=== PATIENT | female | born 1955 | race Asian ===

== ENCOUNTER 2021-09-05 16:58 | Inpatient (IN) | payer MEDICAID, MEDICARE ==
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
[2021-09-06] MEDS: busPIRone 5 MG TAB PO SCH (09:47)
[2021-09-06] MEDS: allopurinoL 100 MG TAB PO SCH (09:47)
[2021-09-06] MEDS: cloNIDine 0.1 MG TAB PO SCH ×2 (09:47→21:36)
[2021-09-06] MEDS: LOSARTAN 50 MG TAB PO SCH (09:48)
[2021-09-06] MEDS: CETIRIZINE 10 MG TAB PO SCH (09:48)
[2021-09-06] MEDS ORDERED: ESCITALOPRAM 10 MG TAB PO SCH (10:00)
[2021-09-06] MEDS ORDERED: NON-FORMULARY EACH (Losartan Potassium [Losartan Potassium] 100 MG Tablet) PO SCH (10:00)
[2021-09-06 13:38] LABS: Basophils % (Auto) 0.5 % (0.0-1.8); Eosinophils # (Auto) 0.2 K/mm3 (0.0-0.4); Eosinophils % (Auto) 1.7 % (0.0-4.3); Hematocrit 35.2 % (30.3-42.9); Hemoglobin 11.6 gm/dl (10.1-14.3); Lymphocytes # (Auto) 1.8 K/mm3 (1.2-5.4); Lymphocytes % (Auto) 19.3 % (13.4-35.0); Mean Corpuscular HGB Conc 33 % (30-34); Mean Corpuscular Volume 94 fl (79-97); Monocytes # (Auto) 0.5 K/mm3 (0.0-0.8); Monocytes % (Auto) 5.2 % (0.0-7.3); Platelet Count 210 K/mm3 (140-440); Red Blood Count 3.76 M/mm3 (3.65-5.03); Red Cell Distribution Width 14.1 % (13.2-15.2)
[2021-09-06 14:07] LABS: Albumin 2.5 g/dL (3.9-5); Calcium 9.3 mg/dL (8.4-10.2); Chol/HDL Ratio 2.96 %
--- NOTE | 2021-09-06 15:37 | Consultation ---
History of Present Illness - Reason for Consult Consult date: 09/06/21 Medical management - History of Present Illness Patient is a 65-year-old female past medical history of gout, hypertension, seasonal allergies, and hyperlipidemia who presented with paranoia. The patient does not have any history of psychiatric diagnoses. Medicine was consulted for medical management of nonpsychiatric diagnoses. Past History Past Medical History: hypertension, hyperlipidemia, other (Seasonal allergies, gout) Past Surgical History: No surgical history Social history: single, lives with family, full code Family history: hypertension Medications and Allergies Allergies Allergy/AdvReac Type Severity Reaction Status Date / Time No Known Allergies Allergy Unverified 09/05/21 22:34 Home Medications Medication Instructions Recorded Confirmed Last Taken Type AtorvaSTATin [Lipitor] 20 mg PO HS 09/06/21 09/06/21 Unknown History Cetirizine HCl 10 mg PO DAILY 09/06/21 09/06/21 Unknown History Escitalopram [Lexapro] 10 mg PO DAILY 09/06/21 09/06/21 Unknown History Losartan Potassium 100 mg PO DAILY 09/06/21 09/06/21 Unknown History allopurinoL [Zyloprim] 100 mg PO DAILY 09/06/21 09/06/21 Unknown History busPIRone [Buspar] 5 mg PO DAILY 09/06/21 09/06/21 Unknown History cloNIDine [Catapres] 0.1 mg PO BID 09/06/21 09/06/21 Unknown History Active Meds: Active Medications Allopurinol (Allopurinol 100 Mg Tab) 100 mg PO DAILY [facility] Last Admin: 09/06/21 09:47 Dose: 100 mg Atorvastatin Calcium (Atorvastatin 20 Mg Tab) 20 mg PO [facility] Buspirone HCl (Buspirone 5 Mg Tab) 5 mg PO DAILY [facility] Last Admin: 09/06/21 09:47 Dose: 5 mg Cetirizine HCl (Cetirizine 10 Mg Tab) 10 mg PO DAILY [facility] Last Admin: 09/06/21 09:48 Dose: 10 mg Clonidine HCl (Clonidine 0.1 Mg Tab) 0.1 mg PO BID [facility] Last Admin: 09/06/21 09:47 Dose: 0.1 mg Escitalopram Oxalate (Escitalopram 10 Mg Tab) 10 mg PO DAILY [facility] Last Admin: 09/06/21 09:48 Dose: 10 mg Losartan Potassium (Losartan 50 Mg Tab) 100 mg PO QDAY [facility] Last Admin: 09/06/21 09:48 Dose: 100 mg Olanzapine (Olanzapine 2.5 Mg Tab) 2.5 mg PO BID [facility] Last Admin: 09/06/21 09:47 Dose: 2.5 mg Trazodone HCl (Trazodone 50 Mg Tab) 50 mg PO QHS [facility] Review of Systems All systems: negative Psychiatric: paranoia Exam - Constitutional Vitals: Temp Pulse Resp BP Pulse Ox 97.6 F 98 H 18 133/63 96 09/06/21 09:17 09/06/21 09:48 09/06/21 09:17 09/06/21 09:47 09/06/21 09:17 General appearance: Present: no acute distress, well-nourished, obese - EENT Eyes: Present: PERRL, EOM intact ENT: hearing intact, clear oral mucosa - Neck Neck: Present: supple, normal ROM - Respiratory Respiratory effort: normal Respiratory: bilateral: CTA - Cardiovascular Rhythm: regular Heart Sounds: Present: S1 & S2 - Extremities Extremities: no ischemia, pulses intact, pulses symmetrical, normal temperature, normal color Peripheral Pulses: within normal limits - Abdominal General gastrointestinal: Present: soft, non-tender, non-distended, normal bowel sounds Female genitourinary: Present: deferred - Rectal Rectal Exam: deferred - Integumentary Integumentary: Present: clear, warm, dry - Musculoskeletal Musculoskeletal: strength equal bilaterally - Psychiatric Psychiatric: appropriate mood/affect, cooperative - Neurologic Neurologic: CNII-XII intact - Allied Health Allied health notes reviewed: nursing Results - Labs CBC & Chem 7: 09/06/21 13:24 09/06/21 13:24 Labs: Abnormal lab results 09/06/21 09/06/21 09/06/21 Range/Units 06:28 11:04 13:24 Seg Neutrophils % 73.3 H (40.0-70.0) % Sodium (137-145) mmol/L Carbon Dioxide (22-30) mmol/L BUN (7-17) mg/dL Creatinine (0.6-1.2) mg/dL Glucose (65-100) mg/dL POC Glucose 106 H 140 H (70-105) mg/dL Hemoglobin A1c (4-6) % Albumin (3.9-5) g/dL HDL Cholesterol (40-59) mg/dL 09/06/21 09/06/21 Range/Units 13:24 13:24 Seg Neutrophils % (40.0-70.0) % Sodium 133 L (137-145) mmol/L Carbon Dioxide 20 L (22-30) mmol/L BUN 30 H (7-17) mg/dL Creatinine 1.5 H (0.6-1.2) mg/dL Glucose 156 H (65-100) mg/dL POC Glucose (70-105) mg/dL Hemoglobin A1c 6.7 H (4-6) % Albumin 2.5 L (3.9-5) g/dL HDL Cholesterol 60 H (40-59) mg/dL Assessment and Plan Patient is a 65-year-old female past medical history of gout, hypertension, seasonal allergies, and hyperlipidemia who presented with paranoia. The patient does not have any history of psychiatric diagnoses. Medicine was consulted for medical management of nonpsychiatric diagnoses. #Paranoia Management per primary team #Hypertension - home medications: Losartan 100 mg daily and clonidine 0.1 mg twice daily - current medications: Losartan 100 mg daily and clonidine 0.1 mg twice daily - SBP goal <160 and DBP goal <90 while inpatient - continue to monitor #Hyperlipidemia Continue home atorvastatin 20 mg daily #Gout Continue allopurinol 100 mg daily #Allergic rhinitis Continue home cetirizine 10 mg daily #Morbid obesity #Weight loss counseling #Exercise counseling - BMI 38.7 - Counseled patient on the importance of weight loss, incorporating exercise, and dietary changes (lean meats, fresh fruits and vegetables, and water intake). Patient expresses understanding. - Time: +10 min #Health care planning Pending CMP, CBC, lipid profile, hemoglobin A1c, TSH #Advanced care planning -Disease education conducted, care plan discussed, diagnoses discussed, prognosi s discussed, and patient acknowledges understanding with care plan -Time: +30 min Thank you for this interesting consult. We will continue to monitor.
[2021-09-06] MEDS: traZODone 50 MG TAB PO SCH (21:37)
--- NOTE | 2021-09-07 08:58 | Progress Note ---
Subjective Date of service: 09/07/21 Principal diagnosis: Major Depressive Disorder Subjective Comment: The patient was seen today. She is lying in bed awake. She says she is a little depressed. The patient says she was admitted because she cut her wrist. She says "I was living with evil people that were doing things to me. She says evil people across the street I was hearing them say things to me." The patient denies suicidal thoughts at present. She also denies hallucinations. REVIEW OF SYSTEMS Constitutional: Negative for weight loss ENT: Negative for stridor Respiratory: Negative for cough or hemoptysis All other systems reviewed and are negative MENTAL STATUS EXAMINATION General Appearance and Behavior: Age appropriate, good hygiene, wearing appropriate clothes, good eye contact, calm, cooperative Cooperation: Participating/engaged, but Guarded Psychomotor Behavior: Psychomotor normal Mood: confused Affect and affective range: congruent with stated mood Thought Process: Circumstantial Thought Content: paranoid Speech: normal tone and pace Suicidal Ideation: Denies Homicidal Ideation: Denies Hallucinations: Denies Delusions: None elicited Impulse Control: Limited Insight and Judgment: Limited insight and judgment Memory: Limited Attention: attentive Orientation: Alert, oriented Assessment and Plan Delusional disorder Treatment Plan Patient admitted for inpatient psychiatric evaluation, medication adjustment and close monitoring The patient's behavior, mood, sleep and appetite will be closely monitored. Patient enrolled in individual and group therapeutic sessions and encouraged to attend. Patient provided with a safe and structured environment. Patient's physical health needs will be addressed by the Hospitalist. Hospitalist Consulted Labs including CBC, CMP, Lipid profile and Hemoglobin A1C levels ordered for baseline reference Social Assessment will be completed and the Clinical Social Worker will work with patient and family to ensure a suitable and safe disposition Medication adjustment will be made as clinically indicated Increase Lexapro 20mg po daily Increase Olanzapine 7.5mg po daily Usual Wellness Evangelical/Preservation: - Start Trazodone 50 mg po QHS & 50 mg po QHS PRN between 10 PM & 2 AM for insomnia - Start Melatonin 5 mg po QHS to promote circadian rhythm The patient agreed on the treatment plan, understood the risk, benefit, alternative treatment, potential consequence of no treatment, and gave informed consent. Estimated days: 7 Post hospital care: primary care provider, psychiatric provider Case staffed with Dr. Christopher Medications and Allergies Allergies Allergy/AdvReac Type Severity Reaction Status Date / Time No Known Allergies Allergy Unverified 09/05/21 22:34 Home Medications Medication Instructions Recorded Confirmed Last Taken Type AtorvaSTATin [Lipitor] 20 mg PO HS 09/06/21 09/06/21 Unknown History Cetirizine HCl 10 mg PO DAILY 09/06/21 09/06/21 Unknown History Escitalopram [Lexapro] 10 mg PO DAILY 09/06/21 09/06/21 Unknown History Losartan Potassium 100 mg PO DAILY 09/06/21 09/06/21 Unknown History allopurinoL [Zyloprim] 100 mg PO DAILY 09/06/21 09/06/21 Unknown History busPIRone [Buspar] 5 mg PO DAILY 09/06/21 09/06/21 Unknown History cloNIDine [Catapres] 0.1 mg PO BID 09/06/21 09/06/21 Unknown History Active Meds: Active Medications Allopurinol (Allopurinol 100 Mg Tab) 100 mg PO DAILY [facility] Last Admin: 09/06/21 09:47 Dose: 100 mg Atorvastatin Calcium (Atorvastatin 20 Mg Tab) 20 mg PO [facility] Last Admin: 09/06/21 21:37 Dose: 20 mg Buspirone HCl (Buspirone 5 Mg Tab) 5 mg PO DAILY [facility] Last Admin: 09/06/21 09:47 Dose: 5 mg Cetirizine HCl (Cetirizine 10 Mg Tab) 10 mg PO DAILY [facility] Last Admin: 09/06/21 09:48 Dose: 10 mg Clonidine HCl (Clonidine 0.1 Mg Tab) 0.1 mg PO BID [facility] Last Admin: 09/06/21 21:36 Dose: 0.1 mg Escitalopram Oxalate (Escitalopram 10 Mg Tab) 10 mg PO DAILY [facility] Last Admin: 09/06/21 09:48 Dose: 10 mg Losartan Potassium (Losartan 50 Mg Tab) 100 mg PO QDAY [facility] Last Admin: 09/06/21 09:48 Dose: 100 mg Metformin HCl (Metformin 500 Mg Tab) 500 mg PO BIDDIAB [facility] Olanzapine (Olanzapine 2.5 Mg Tab) 2.5 mg PO BID [facility] Last Admin: 09/06/21 21:37 Dose: 2.5 mg Trazodone HCl (Trazodone 50 Mg Tab) 50 mg PO QHS [facility] Last Admin: 09/06/21 21:37 Dose: 50 mg Results - Results Labs/Vitals: Laboratory Last Values WBC 9.5 K/mm3 (4.5-11.0) 09/06/21 13:24 RBC 3.76 M/mm3 (3.65-5.03) 09/06/21 13:24 Hgb 11.6 gm/dl (10.1-14.3) 09/06/21 13:24 Hct 35.2 % (30.3-42.9) 09/06/21 13:24 MCV 94 fl (79-97) 09/06/21 13:24 MCH 31 pg (28-32) 09/06/21 13:24 MCHC 33 % (30-34) 09/06/21 13:24 RDW 14.1 % (13.2-15.2) 09/06/21 13:24 Plt Count 210 K/mm3 (140-440) 09/06/21 13:24 Lymph % (Auto) 19.3 % (13.4-35.0) 09/06/21 13:24 [place] % (Auto) 5.2 % (0.0-7.3) 09/06/21 13:24 Eos % (Auto) 1.7 % (0.0-4.3) 09/06/21 13:24 Baso % (Auto) 0.5 % (0.0-1.8) 09/06/21 13:24 Lymph # (Auto) 1.8 K/mm3 (1.2-5.4) 09/06/21 13:24 [place] # (Auto) 0.5 K/mm3 (0.0-0.8) 09/06/21 13:24 Eos # (Auto) 0.2 K/mm3 (0.0-0.4) 09/06/21 13:24 Baso # (Auto) 0.0 K/mm3 (0.0-0.1) 09/06/21 13:24 Seg Neutrophils % 73.3 % (40.0-70.0) H 09/06/21 13:24 Seg Neutrophils # 6.9 K/mm3 (1.8-7.7) 09/06/21 13:24 Sodium 133 mmol/L (137-145) L 09/06/21 13:24 Potassium 4.8 mmol/L (3.6-5.0) 09/06/21 13:24 Chloride 102.4 mmol/L (98-107) 09/06/21 13:24 Carbon Dioxide 20 mmol/L (22-30) L 09/06/21 13:24 Anion Gap 15 mmol/L 09/06/21 13:24 BUN 30 mg/dL (7-17) H 09/06/21 13:24 Creatinine 1.5 mg/dL (0.6-1.2) H 09/06/21 13:24 Estimated GFR 35 ml/min 09/06/21 13:24 BUN/Creatinine Ratio 20 % 09/06/21 13:24 Glucose 156 mg/dL (65-100) H 09/06/21 13:24 POC Glucose 108 mg/dL (70-105) H 09/07/21 08:19 Hemoglobin A1c 6.7 % (4-6) H 09/06/21 13:24 Calcium 9.3 mg/dL (8.4-10.2) 09/06/21 13:24 Total Bilirubin 0.60 mg/dL (0.1-1.2) 09/06/21 13:24 AST 21 units/L (5-40) 09/06/21 13:24 ALT 10 units/L (7-56) 09/06/21 13:24 Alkaline Phosphatase 49 units/L (35-129) 09/06/21 13:24 Total Protein 7.1 g/dL (6.3-8.2) 09/06/21 13:24 Albumin 2.5 g/dL (3.9-5) L 09/06/21 13:24 Albumin/Globulin Ratio 0.5 % 09/06/21 13:24 Triglycerides 118 mg/dL (2-149) 09/06/21 13:24 Cholesterol 178 mg/dL (50-199) 09/06/21 13:24 LDL Cholesterol Direct 105 mg/dL (50-130) 09/06/21 13:24 HDL Cholesterol 60 mg/dL (40-59) H 09/06/21 13:24 Cholesterol/HDL Ratio 2.96 % 09/06/21 13:24 TSH 0.454 mlU/mL (0.270-4.200) 09/06/21 13:24 Last Vital Signs Temp 98.7 F 09/06/21 19:45 Pulse 76 09/06/21 21:36 Resp 17 09/06/21 19:45 BP 120/67 04/07/22 21:36 Pulse Ox 95 09/06/21 19:45
[2021-09-07] MEDS: ESCITALOPRAM 10 MG TAB PO SCH (09:56)
[2021-09-07] MEDS: LOSARTAN 50 MG TAB PO SCH (09:56)
[2021-09-07] MEDS: metFORMIN 500 MG TAB PO SCH ×2 (09:56→17:26)
[2021-09-07] MEDS: allopurinoL 100 MG TAB PO SCH (09:57)
[2021-09-07] MEDS: cloNIDine 0.1 MG TAB PO SCH ×2 (09:57→21:25)
[2021-09-07] MEDS: CETIRIZINE 10 MG TAB PO SCH (09:57)
[2021-09-07] MEDS: busPIRone 5 MG TAB PO SCH (09:57)
--- NOTE | 2021-09-07 21:00 | Progress Note ---
Assessment and Plan Assessment and plan: Patient is a 65-year-old female past medical history of gout, hypertension, seasonal allergies, and hyperlipidemia who presented with paranoia. The patient does not have any history of psychiatric diagnoses. Medicine was consulted for medical management of nonpsychiatric diagnoses. #Major depressive disorder Management per primary team #Hypertension - home medications: Losartan 100 mg daily and clonidine 0.1 mg twice daily - current medications: Losartan 100 mg daily and clonidine 0.1 mg twice daily - SBP goal <160 and DBP goal <90 while inpatient - continue to monitor #Non-insulin dependent type II diabetes mellitus (newly diagnosed) - hemoglobin A1c: 6.7 - home regimen: None - current regimen: Metformin 500 mg twice daily - blood glucose goal 140-180 while inpatient - continue to monitor #CKD stage III Creatinine 1.5 (baseline unknown) Renally dose meds and avoid nephrotoxic drugs. Continue to monitor. Encourage p.o. intake. #Hyperlipidemia Continue home atorvastatin 20 mg daily #Gout Continue allopurinol 100 mg daily #Allergic rhinitis Continue home cetirizine 10 mg daily #Severe protein caloric malnutrition Albumin 2.6 Starting dietary supplements. Nutrition consulted; pending recs. #Morbid obesity #Weight loss counseling #Exercise counseling - BMI 38.7 - Counseled patient on the importance of weight loss, incorporating exercise, a nd dietary changes (lean meats, fresh fruits and vegetables, and water intake). Patient expresses understanding. - Time: +10 min #Advanced care planning -Disease education conducted, care plan discussed, diagnoses discussed, prognosis discussed, and patient acknowledges understanding with care plan -Time: +60 min Event: SOFYA BILL was called at approximately 3 PM due to concerns of the patient had become unresponsive. On the scene, the patient was verbally expressing "leave me alone", swinging her arms, and maintaining her airway. It was quickly determined that the patient was not coding, and the CODE BLUE was canceled. The patient was further evaluated at the bedside, and vitals were found to be unremarkable. The patient did appear overly sedated. It was recommended that sedation be reduced in order to prevent increased lethargy and possible concerns for unresponsiveness. Primary team accident. Disposition Plan: Continue medical management Total Time Spent with Patient (Minutes): 60 minutes History Interval history: No acute events overnight. Hospitalist Physical - Constitutional Vitals: Temp Pulse Resp BP Pulse Ox 97.8 F 65 18 105/47 95 09/07/21 09:18 09/07/21 14:31 09/07/21 09:18 09/07/21 14:31 09/07/21 14:31 General appearance: Present: no acute distress, well-nourished, obese, other (Noroton sedated) - EENT Eyes: Present: PERRL, EOM intact ENT: hearing intact, clear oral mucosa, edentulous - Neck Neck: Present: supple, normal ROM - Respiratory Respiratory effort: normal Respiratory: bilateral: CTA - Cardiovascular Rhythm: regular Heart Sounds: Present: S1 & S2 - Extremities Extremities: no ischemia, pulses intact, pulses symmetrical, No edema, normal temperature, normal color Peripheral Pulses: within normal limits - Abdominal General gastrointestinal: soft, non-tender, non-distended, normal bowel sounds - Integumentary Integumentary: Present: clear, warm, dry - Psychiatric Psychiatric: agitated - Neurologic Neurologic: CNII-XII intact, other (Noroton sedated and somnolent) - Allied Health Allied health notes reviewed: nursing Results - Labs CBC & Chem 7: 09/06/21 13:24 09/06/21 13:24 Labs: Laboratory Last Values WBC 9.5 K/mm3 (4.5-11.0) 09/06/21 13:24 RBC 3.76 M/mm3 (3.65-5.03) 09/06/21 13:24 Hgb 11.6 gm/dl (10.1-14.3) 09/06/21 13:24 Hct 35.2 % (30.3-42.9) 09/06/21 13:24 MCV 94 fl (79-97) 09/06/21 13:24 MCH 31 pg (28-32) 09/06/21 13:24 MCHC 33 % (30-34) 09/06/21 13:24 RDW 14.1 % (13.2-15.2) 09/06/21 13:24 Plt Count 210 K/mm3 (140-440) 09/06/21 13:24 Lymph % (Auto) 19.3 % (13.4-35.0) 09/06/21 13:24 [place] % (Auto) 5.2 % (0.0-7.3) 09/06/21 13:24 Eos % (Auto) 1.7 % (0.0-4.3) 09/06/21 13:24 Baso % (Auto) 0.5 % (0.0-1.8) 09/06/21 13:24 Lymph # (Auto) 1.8 K/mm3 (1.2-5.4) 09/06/21 13:24 [place] # (Auto) 0.5 K/mm3 (0.0-0.8) 09/06/21 13:24 Eos # (Auto) 0.2 K/mm3 (0.0-0.4) 09/06/21 13:24 Baso # (Auto) 0.0 K/mm3 (0.0-0.1) 09/06/21 13:24 Seg Neutrophils % 73.3 % (40.0-70.0) H 09/06/21 13:24 Seg Neutrophils # 6.9 K/mm3 (1.8-7.7) 09/06/21 13:24 Sodium 133 mmol/L (137-145) L 09/06/21 13:24 Potassium 4.8 mmol/L (3.6-5.0) 09/06/21 13:24 Chloride 102.4 mmol/L (98-107) 09/06/21 13:24 Carbon Dioxide 20 mmol/L (22-30) L 09/06/21 13:24 Anion Gap 15 mmol/L 09/06/21 13:24 BUN 30 mg/dL (7-17) H 09/06/21 13:24 Creatinine 1.5 mg/dL (0.6-1.2) H 09/06/21 13:24 Estimated GFR 35 ml/min 09/06/21 13:24 BUN/Creatinine Ratio 20 % 09/06/21 13:24 Glucose 156 mg/dL (65-100) H 09/06/21 13:24 POC Glucose 218 mg/dL (70-105) H 09/07/21 17:23 Hemoglobin A1c 6.7 % (4-6) H 09/06/21 13:24 Calcium 9.3 mg/dL (8.4-10.2) 09/06/21 13:24 Total Bilirubin 0.60 mg/dL (0.1-1.2) 09/06/21 13:24 AST 21 units/L (5-40) 09/06/21 13:24 ALT 10 units/L (7-56) 09/06/21 13:24 Alkaline Phosphatase 49 units/L (35-129) 09/06/21 13:24 Total Protein 7.1 g/dL (6.3-8.2) 09/06/21 13:24 Albumin 2.5 g/dL (3.9-5) L 09/06/21 13:24 Albumin/Globulin Ratio 0.5 % 09/06/21 13:24 Triglycerides 118 mg/dL (2-149) 09/06/21 13:24 Cholesterol 178 mg/dL (50-199) 09/06/21 13:24 LDL Cholesterol Direct 105 mg/dL (50-130) 09/06/21 13:24 HDL Cholesterol 60 mg/dL (40-59) H 09/06/21 13:24 Cholesterol/HDL Ratio 2.96 % 09/06/21 13:24 TSH 0.454 mlU/mL (0.270-4.200) 09/06/21 13:24 [place]/IV: Voiding Method Toilet Active Medications - Current Medications Current Medications: Generic Name Dose Route Start Last Admin Trade Name Freq PRN Reason Stop Dose Admin Allopurinol 100 mg 09/06/21 10:00 09/07/21 09:57 Allopurinol 100 Mg Tab PO 100 mg DAILY VANESSA Administration Atorvastatin Calcium 20 mg 09/06/21 22:00 09/06/21 21:37 Atorvastatin 20 Mg Tab PO 20 mg HS VANESSA Administration Buspirone HCl 5 mg 09/06/21 10:00 09/07/21 09:57 Buspirone 5 Mg Tab PO 5 mg DAILY VANESSA Administration Cetirizine HCl 10 mg 09/06/21 10:00 09/07/21 09:57 Cetirizine 10 Mg Tab PO 10 mg DAILY VANESSA Administration Clonidine HCl 0.1 mg 09/06/21 10:00 09/07/21 09:57 Clonidine 0.1 Mg Tab PO 0.1 mg BID VANESSA Administration Escitalopram Oxalate 20 mg 09/07/21 10:00 09/07/21 09:56 Escitalopram 10 Mg Tab PO 20 mg QDAY VANESSA Administration Losartan Potassium 100 mg 09/06/21 10:00 09/07/21 09:56 Losartan 50 Mg Tab PO 100 mg QDAY VANESSA Administration Metformin HCl 500 mg 09/07/21 10:00 09/07/21 17:26 Metformin 500 Mg Tab PO 500 mg BIDDIAB VANESSA Administration Olanzapine 7.5 mg 09/07/21 10:00 09/07/21 09:56 Olanzapine 7.5 Mg Tab PO 7.5 mg QDAY VANESSA Administration Trazodone HCl 50 mg 09/06/21 22:00 09/06/21 21:37 Trazodone 50 Mg Tab PO 50 mg QHS VANESSA Administration
[2021-09-07] MEDS: traZODone 50 MG TAB PO SCH (21:24)
--- NOTE | 2021-09-08 09:25 | Progress Note ---
Subjective Date of service: 09/08/21 Principal diagnosis: Major Depressive Disorder Subjective Comment: The patient was seen today. She is sitting in the dayroom. She is paranoid and delusional. She appears withdrawn. The patient says she is depressed. She then says "I killed my whole family, remember?" I tell the patient that none of that happened. She becomes upset, and says "just don't say nothing else." She refused to speak any further. REVIEW OF SYSTEMS Constitutional: Negative for weight loss ENT: Negative for stridor Respiratory: Negative for cough or hemoptysis All other systems reviewed and are negative MENTAL STATUS EXAMINATION General Appearance and Behavior: Age appropriate, good hygiene, wearing appropriate clothes, good eye contact, calm, cooperative Cooperation: Participating/engaged, but Guarded Psychomotor Behavior: Psychomotor normal Mood: confused Affect and affective range: congruent with stated mood Thought Process: Circumstantial Thought Content: paranoid Speech: normal tone and pace Suicidal Ideation: Denies Homicidal Ideation: Denies Hallucinations: Denies Delusions: None elicited Impulse Control: Limited Insight and Judgment: Limited insight and judgment Memory: Limited Attention: attentive Orientation: Alert, oriented Assessment and Plan Delusional disorder Treatment Plan Patient admitted for inpatient psychiatric evaluation, medication adjustment and close monitoring The patient's behavior, mood, sleep and appetite will be closely monitored. Patient enrolled in individual and group therapeutic sessions and encouraged to attend. Patient provided with a safe and structured environment. Patient's physical health needs will be addressed by the Hospitalist. Hospitalist Consulted Labs including CBC, CMP, Lipid profile and Hemoglobin A1C levels ordered for baseline reference Social Assessment will be completed and the School Bus Mechanic will work with patient and family to ensure a suitable and safe disposition Medication adjustment will be made as clinically indicated Increase Lexapro 20mg po daily yesterday Increase Olanzapine 10mg po daily Usual Wellness Oriental Orthodox/Preservation: - Start Trazodone 50 mg po QHS & 50 mg po QHS PRN between 10 PM & 2 AM for insomnia - Start Melatonin 5 mg po QHS to promote circadian rhythm The patient agreed on the treatment plan, understood the risk, benefit, alternative treatment, potential consequence of no treatment, and gave informed consent. Estimated days: 7 Post hospital care: primary care provider, psychiatric provider Case staffed with Dr. Christopher Medications and Allergies Allergies Allergy/AdvReac Type Severity Reaction Status Date / Time No Known Allergies Allergy Unverified 09/05/21 22:34 Home Medications Medication Instructions Recorded Confirmed Last Taken Type AtorvaSTATin [Lipitor] 20 mg PO HS 09/06/21 09/06/21 Unknown History Cetirizine HCl 10 mg PO DAILY 09/06/21 09/06/21 Unknown History Escitalopram [Lexapro] 10 mg PO DAILY 09/06/21 09/06/21 Unknown History Losartan Potassium 100 mg PO DAILY 09/06/21 09/06/21 Unknown History allopurinoL [Zyloprim] 100 mg PO DAILY 09/06/21 09/06/21 Unknown History busPIRone [Buspar] 5 mg PO DAILY 09/06/21 09/06/21 Unknown History cloNIDine [Catapres] 0.1 mg PO BID 09/06/21 09/06/21 Unknown History Active Meds: Active Medications Allopurinol (Allopurinol 100 Mg Tab) 100 mg PO DAILY [facility] Last Admin: 09/07/21 09:57 Dose: 100 mg Atorvastatin Calcium (Atorvastatin 20 Mg Tab) 20 mg PO [facility] Last Admin: 09/07/21 21:24 Dose: 20 mg Buspirone HCl (Buspirone 5 Mg Tab) 5 mg PO DAILY [facility] Last Admin: 09/07/21 09:57 Dose: 5 mg Cetirizine HCl (Cetirizine 10 Mg Tab) 10 mg PO DAILY [facility] Last Admin: 09/07/21 09:57 Dose: 10 mg Clonidine HCl (Clonidine 0.1 Mg Tab) 0.1 mg PO BID [facility] Last Admin: 09/07/21 21:25 Dose: Not Given Escitalopram Oxalate (Escitalopram 10 Mg Tab) 20 mg PO QDAY [facility] Last Admin: 09/07/21 09:56 Dose: 20 mg Losartan Potassium (Losartan 50 Mg Tab) 100 mg PO QDAY [facility] Last Admin: 09/07/21 09:56 Dose: 100 mg Metformin HCl (Metformin 500 Mg Tab) 500 mg PO BIDDIAB [facility] Last Admin: 09/07/21 17:26 Dose: 500 mg Olanzapine (Olanzapine 7.5 Mg Tab) 7.5 mg PO QDAY [facility] Last Admin: 09/07/21 09:56 Dose: 7.5 mg Trazodone HCl (Trazodone 50 Mg Tab) 50 mg PO QHS [facility] Last Admin: 09/07/21 21:24 Dose: 50 mg Results - Results Labs/Vitals: Laboratory Last Values WBC 9.5 K/mm3 (4.5-11.0) 09/06/21 13:24 RBC 3.76 M/mm3 (3.65-5.03) 09/06/21 13:24 Hgb 11.6 gm/dl (10.1-14.3) 09/06/21 13:24 Hct 35.2 % (30.3-42.9) 09/06/21 13:24 MCV 94 fl (79-97) 09/06/21 13:24 MCH 31 pg (28-32) 09/06/21 13:24 MCHC 33 % (30-34) 09/06/21 13:24 RDW 14.1 % (13.2-15.2) 09/06/21 13:24 Plt Count 210 K/mm3 (140-440) 09/06/21 13:24 Lymph % (Auto) 19.3 % (13.4-35.0) 09/06/21 13:24 [place] % (Auto) 5.2 % (0.0-7.3) 09/06/21 13:24 Eos % (Auto) 1.7 % (0.0-4.3) 09/06/21 13:24 Baso % (Auto) 0.5 % (0.0-1.8) 09/06/21 13:24 Lymph # (Auto) 1.8 K/mm3 (1.2-5.4) 09/06/21 13:24 [place] # (Auto) 0.5 K/mm3 (0.0-0.8) 09/06/21 13:24 Eos # (Auto) 0.2 K/mm3 (0.0-0.4) 09/06/21 13:24 Baso # (Auto) 0.0 K/mm3 (0.0-0.1) 09/06/21 13:24 Seg Neutrophils % 73.3 % (40.0-70.0) H 09/06/21 13:24 Seg Neutrophils # 6.9 K/mm3 (1.8-7.7) 09/06/21 13:24 Sodium 133 mmol/L (137-145) L 09/06/21 13:24 Potassium 4.8 mmol/L (3.6-5.0) 09/06/21 13:24 Chloride 102.4 mmol/L (98-107) 09/06/21 13:24 Carbon Dioxide 20 mmol/L (22-30) L 09/06/21 13:24 Anion Gap 15 mmol/L 09/06/21 13:24 BUN 30 mg/dL (7-17) H 09/06/21 13:24 Creatinine 1.5 mg/dL (0.6-1.2) H 09/06/21 13:24 Estimated GFR 35 ml/min 09/06/21 13:24 BUN/Creatinine Ratio 20 % 09/06/21 13:24 Glucose 156 mg/dL (65-100) H 09/06/21 13:24 POC Glucose 218 mg/dL (70-105) H 09/07/21 17:23 Hemoglobin A1c 6.7 % (4-6) H 09/06/21 13:24 Calcium 9.3 mg/dL (8.4-10.2) 09/06/21 13:24 Total Bilirubin 0.60 mg/dL (0.1-1.2) 09/06/21 13:24 AST 21 units/L (5-40) 09/06/21 13:24 ALT 10 units/L (7-56) 09/06/21 13:24 Alkaline Phosphatase 49 units/L (35-129) 09/06/21 13:24 Total Protein 7.1 g/dL (6.3-8.2) 09/06/21 13:24 Albumin 2.5 g/dL (3.9-5) L 09/06/21 13:24 Albumin/Globulin Ratio 0.5 % 09/06/21 13:24 Triglycerides 118 mg/dL (2-149) 09/06/21 13:24 Cholesterol 178 mg/dL (50-199) 09/06/21 13:24 LDL Cholesterol Direct 105 mg/dL (50-130) 09/06/21 13:24 HDL Cholesterol 60 mg/dL (40-59) H 09/06/21 13:24 Cholesterol/HDL Ratio 2.96 % 09/06/21 13:24 TSH 0.454 mlU/mL (0.270-4.200) 09/06/21 13:24 Last Vital Signs Temp 97.3 F L 09/07/21 19:55 Pulse 68 09/07/21 21:25 Resp 18 09/07/21 19:55 BP 118/55 09/07/21 21:25 Pulse Ox 97 09/07/21 19:55
[2021-09-08] MEDS: cloNIDine 0.1 MG TAB PO SCH ×2 (10:30→21:13)
[2021-09-08] MEDS: LOSARTAN 50 MG TAB PO SCH (10:32)
[2021-09-08] MEDS: busPIRone 5 MG TAB PO SCH (10:32)
[2021-09-08] MEDS: metFORMIN 500 MG TAB PO SCH ×2 (10:32→18:15)
[2021-09-08] MEDS: ESCITALOPRAM 10 MG TAB PO SCH (10:35)
[2021-09-08] MEDS: CETIRIZINE 10 MG TAB PO SCH (10:49)
[2021-09-08] MEDS: allopurinoL 100 MG TAB PO SCH (10:50)
[2021-09-08] MEDS: traZODone 50 MG TAB PO SCH (21:13)
[2021-09-09] MEDS ORDERED: ZIPRASIDONE MESYLATE 20 MG VIAL IM ONE (00:25)
[2021-09-09] MEDS: metFORMIN 500 MG TAB PO SCH ×2 (08:32→16:19)
[2021-09-09] MEDS: ESCITALOPRAM 10 MG TAB PO SCH (09:17)
[2021-09-09] MEDS: allopurinoL 100 MG TAB PO SCH (09:18)
[2021-09-09] MEDS: busPIRone 5 MG TAB PO SCH (09:18)
[2021-09-09] MEDS: cloNIDine 0.1 MG TAB PO SCH ×2 (09:20→21:52)
[2021-09-09] MEDS: LOSARTAN 50 MG TAB PO SCH (09:21)
[2021-09-09] MEDS: CETIRIZINE 10 MG TAB PO SCH (09:21)
[2021-09-09] MEDS: NIFEdipine XL 30 MG TAB PO SCH (09:49)
--- NOTE | 2021-09-09 10:09 | Progress Note ---
Subjective Date of service: 09/09/21 Principal diagnosis: Major Depressive Disorder Subjective Comment: The patient was seen today. She is sleeping. She is irritable at me waking her up. She tells me to "[facility]" to silence me. She verbalizes being depressed. She says "I don't want to talk about it," when asking her was she suicidal. The nurse says the patient was given Geodon prn and it just started to take affect this morning. Nurse note states the patient was agitated, combative and hallu cinating. 09/08 The patient was seen today. She is sitting in the dayroom. She is paranoid and delusional. She appears withdrawn. The patient says she is depressed. She then says "I killed my whole family, remember?" I tell the patient that none of that happened. She becomes upset, and says "just don't say nothing else." She refused to speak any further. REVIEW OF SYSTEMS Constitutional: Negative for weight loss ENT: Negative for stridor Respiratory: Negative for cough or hemoptysis All other systems reviewed and are negative MENTAL STATUS EXAMINATION General Appearance and Behavior: Age appropriate, good hygiene, wearing appropriate clothes, good eye contact, calm, cooperative Cooperation: Participating/engaged, but Guarded Psychomotor Behavior: Psychomotor normal Mood: confused Affect and affective range: congruent with stated mood Thought Process: Circumstantial Thought Content: paranoid Speech: normal tone and pace Suicidal Ideation: Denies Homicidal Ideation: Denies Hallucinations: Denies Delusions: None elicited Impulse Control: Limited Insight and Judgment: Limited insight and judgment Memory: Limited Attention: attentive Orientation: Alert, oriented Assessment and Plan Delusional disorder Treatment Plan Patient admitted for inpatient psychiatric evaluation, medication adjustment and close monitoring The patient's behavior, mood, sleep and appetite will be closely monitored. Patient enrolled in individual and group therapeutic sessions and encouraged to attend. Patient provided with a safe and structured environment. Patient's physical health needs will be addressed by the Hospitalist. Hospitalist Consulted Labs including CBC, CMP, Lipid profile and Hemoglobin A1C levels ordered for baseline reference Social Assessment will be completed and the Contact Printer Dry Film will work with patient and family to ensure a suitable and safe disposition Medication adjustment will be made as clinically indicated Continue Lexapro 20mg po daily Increase Olanzapine 15mg po daily Usual Wellness Orthodox/Preservation: - Start Trazodone 50 mg po QHS & 50 mg po QHS PRN between 10 PM & 2 AM for insomnia - Start Melatonin 5 mg po QHS to promote circadian rhythm The patient agreed on the treatment plan, understood the risk, benefit, alternative treatment, potential consequence of no treatment, and gave informed consent. Estimated days: 7 Post hospital care: primary care provider, psychiatric provider Case staffed with Dr. Christopher Medications and Allergies Allergies Allergy/AdvReac Type Severity Reaction Status Date / Time No Known Allergies Allergy Unverified 09/05/21 22:34 Home Medications Medication Instructions Recorded Confirmed Last Taken Type AtorvaSTATin [Lipitor] 20 mg PO HS 09/06/21 09/06/21 Unknown History Cetirizine HCl 10 mg PO DAILY 09/06/21 09/06/21 Unknown History Escitalopram [Lexapro] 10 mg PO DAILY 09/06/21 09/06/21 Unknown History Losartan Potassium 100 mg PO DAILY 09/06/21 09/06/21 Unknown History allopurinoL [Zyloprim] 100 mg PO DAILY 09/06/21 09/06/21 Unknown History busPIRone [Buspar] 5 mg PO DAILY 09/06/21 09/06/21 Unknown History cloNIDine [Catapres] 0.1 mg PO BID 09/06/21 09/06/21 Unknown History Active Meds: Active Medications Allopurinol (Allopurinol 100 Mg Tab) 100 mg PO DAILY [facility] Last Admin: 09/09/21 09:18 Dose: 100 mg Atorvastatin Calcium (Atorvastatin 20 Mg Tab) 20 mg PO [facility] Last Admin: 09/08/21 21:13 Dose: 20 mg Buspirone HCl (Buspirone 5 Mg Tab) 5 mg PO DAILY [facility] Last Admin: 09/09/21 09:18 Dose: 5 mg Cetirizine HCl (Cetirizine 10 Mg Tab) 10 mg PO DAILY [facility] Last Admin: 09/09/21 09:21 Dose: 10 mg Clonidine HCl (Clonidine 0.1 Mg Tab) 0.1 mg PO BID [facility] Last Admin: 09/09/21 09:20 Dose: Not Given Escitalopram Oxalate (Escitalopram 10 Mg Tab) 20 mg PO QDAY [facility] Last Admin: 09/09/21 09:17 Dose: 20 mg Losartan Potassium (Losartan 50 Mg Tab) 100 mg PO QDAY [facility] Last Admin: 09/09/21 09:21 Dose: 100 mg Metformin HCl (Metformin 500 Mg Tab) 500 mg PO BIDDIAB [facility] Last Admin: 09/09/21 08:32 Dose: 500 mg Nifedipine (Nifedipine Xl 30 Mg Tab) 30 mg PO QDAY [facility] Last Admin: 09/09/21 09:49 Dose: Not Given Olanzapine (Olanzapine 10 Mg Tab) 10 mg PO QDAY [facility] Last Admin: 09/09/21 09:21 Dose: 10 mg Trazodone HCl (Trazodone 50 Mg Tab) 50 mg PO QHS [facility] Last Admin: 09/08/21 21:13 Dose: 50 mg Results - Results Labs/Vitals: Laboratory Last Values WBC 9.5 K/mm3 (4.5-11.0) 09/06/21 13:24 RBC 3.76 M/mm3 (3.65-5.03) 09/06/21 13:24 Hgb 11.6 gm/dl (10.1-14.3) 09/06/21 13:24 Hct 35.2 % (30.3-42.9) 09/06/21 13:24 MCV 94 fl (79-97) 09/06/21 13:24 MCH 31 pg (28-32) 09/06/21 13:24 MCHC 33 % (30-34) 09/06/21 13:24 RDW 14.1 % (13.2-15.2) 09/06/21 13:24 Plt Count 210 K/mm3 (140-440) 09/06/21 13:24 Lymph % (Auto) 19.3 % (13.4-35.0) 09/06/21 13:24 [place] % (Auto) 5.2 % (0.0-7.3) 09/06/21 13:24 Eos % (Auto) 1.7 % (0.0-4.3) 09/06/21 13:24 Baso % (Auto) 0.5 % (0.0-1.8) 09/06/21 13:24 Lymph # (Auto) 1.8 K/mm3 (1.2-5.4) 09/06/21 13:24 [place] # (Auto) 0.5 K/mm3 (0.0-0.8) 09/06/21 13:24 Eos # (Auto) 0.2 K/mm3 (0.0-0.4) 09/06/21 13:24 Baso # (Auto) 0.0 K/mm3 (0.0-0.1) 09/06/21 13:24 Seg Neutrophils % 73.3 % (40.0-70.0) H 09/06/21 13:24 Seg Neutrophils # 6.9 K/mm3 (1.8-7.7) 09/06/21 13:24 Sodium 133 mmol/L (137-145) L 09/06/21 13:24 Potassium 4.8 mmol/L (3.6-5.0) 09/06/21 13:24 Chloride 102.4 mmol/L (98-107) 09/06/21 13:24 Carbon Dioxide 20 mmol/L (22-30) L 09/06/21 13:24 Anion Gap 15 mmol/L 09/06/21 13:24 BUN 30 mg/dL (7-17) H 09/06/21 13:24 Creatinine 1.5 mg/dL (0.6-1.2) H 09/06/21 13:24 Estimated GFR 35 ml/min 09/06/21 13:24 BUN/Creatinine Ratio 20 % 09/06/21 13:24 Glucose 156 mg/dL (65-100) H 09/06/21 13:24 POC Glucose 130 mg/dL (70-105) H 09/09/21 06:29 Hemoglobin A1c 6.7 % (4-6) H 09/06/21 13:24 Calcium 9.3 mg/dL (8.4-10.2) 09/06/21 13:24 Total Bilirubin 0.60 mg/dL (0.1-1.2) 09/06/21 13:24 AST 21 units/L (5-40) 09/06/21 13:24 ALT 10 units/L (7-56) 09/06/21 13:24 Alkaline Phosphatase 49 units/L (35-129) 09/06/21 13:24 Total Protein 7.1 g/dL (6.3-8.2) 09/06/21 13:24 Albumin 2.5 g/dL (3.9-5) L 09/06/21 13:24 Albumin/Globulin Ratio 0.5 % 09/06/21 13:24 Triglycerides 118 mg/dL (2-149) 09/06/21 13:24 Cholesterol 178 mg/dL (50-199) 09/06/21 13:24 LDL Cholesterol Direct 105 mg/dL (50-130) 09/06/21 13:24 HDL Cholesterol 60 mg/dL (40-59) H 09/06/21 13:24 Cholesterol/HDL Ratio 2.96 % 09/06/21 13:24 TSH 0.454 mlU/mL (0.270-4.200) 09/06/21 13:24 Last Vital Signs Temp 97.3 F L 09/08/21 19:50 Pulse 85 09/09/21 09:21 Resp 17 09/08/21 19:50 BP 134/79 09/09/21 09:21 Pulse Ox 94 09/08/21 19:50
--- NOTE | 2021-09-09 16:57 | Progress Note ---
Assessment and Plan Assessment and plan: Patient is a 65-year-old female past medical history of gout, hypertension, seasonal allergies, and hyperlipidemia who presented with paranoia. The patient does not have any history of psychiatric diagnoses. Medicine was consulted for medical management of nonpsychiatric diagnoses. #Major depressive disorder Management per primary team #Hypertension - home medications: Losartan 100 mg daily and clonidine 0.1 mg twice daily - current medications: Losartan 100 mg daily and clonidine 0.1 mg twice daily - SBP goal <160 and DBP goal <90 while inpatient - continue to monitor #Non-insulin dependent type II diabetes mellitus (newly diagnosed) - hemoglobin A1c: 6.7 - home regimen: None - current regimen: Metformin 500 mg twice daily - blood glucose goal 140-180 while inpatient - continue to monitor #CKD stage III Creatinine 1.5 (baseline unknown) Renally dose meds and avoid nephrotoxic drugs. Continue to monitor. Encourage p.o. intake. #Hyperlipidemia Continue home atorvastatin 20 mg daily #Gout Continue allopurinol 100 mg daily #Allergic rhinitis Continue home cetirizine 10 mg daily #Severe protein caloric malnutrition Albumin 2.6 Continue dietary supplements. Nutrition consulted; appreciate recs. #Morbid obesity #Weight loss counseling #Exercise counseling - BMI 38.7 - Counseled patient on the importance of weight loss, incorporating exercise, and dietary changes (lean meats, fresh fruits and vegetables, and water intake). Patient expresses understanding. - Time: +10 min #Advanced care planning -Disease education conducted, care plan discussed, diagnoses discussed, prognosis discussed, and patient acknowledges understanding with care plan -Time: +30 min Disposition Plan: Continue medical management Total Time Spent with Patient (Minutes): 30 minutes History Interval history: No acute events overnight. Hospitalist Physical - Constitutional Vitals: Temp Pulse Resp BP Pulse Ox 97.3 F L 85 17 134/79 94 09/08/21 19:50 09/09/21 09:21 09/08/21 19:50 09/09/21 09:21 09/08/21 19:50 General appearance: Present: no acute distress, well-nourished, obese - EENT Eyes: Present: PERRL, EOM intact ENT: hearing intact, clear oral mucosa - Neck Neck: Present: supple, normal ROM - Respiratory Respiratory effort: normal Respiratory: bilateral: CTA - Cardiovascular Rhythm: regular Heart Sounds: Present: S1 & S2 - Extremities Extremities: no ischemia, pulses intact, pulses symmetrical, No edema, normal temperature, normal color Peripheral Pulses: within normal limits - Abdominal General gastrointestinal: soft, non-tender, non-distended, normal bowel sounds - Integumentary Integumentary: Present: clear, warm, dry - Psychiatric Psychiatric: cooperative, agitated - Neurologic Neurologic: CNII-XII intact, moves all extremities - Allied Health Allied health notes reviewed: nursing Results - Labs CBC & Chem 7: 09/06/21 13:24 09/06/21 13:24 Labs: Laboratory Last Values WBC 9.5 K/mm3 (4.5-11.0) 09/06/21 13:24 RBC 3.76 M/mm3 (3.65-5.03) 09/06/21 13:24 Hgb 11.6 gm/dl (10.1-14.3) 09/06/21 13:24 Hct 35.2 % (30.3-42.9) 09/06/21 13:24 MCV 94 fl (79-97) 09/06/21 13:24 MCH 31 pg (28-32) 09/06/21 13:24 MCHC 33 % (30-34) 09/06/21 13:24 RDW 14.1 % (13.2-15.2) 09/06/21 13:24 Plt Count 210 K/mm3 (140-440) 09/06/21 13:24 Lymph % (Auto) 19.3 % (13.4-35.0) 09/06/21 13:24 [place] % (Auto) 5.2 % (0.0-7.3) 09/06/21 13:24 Eos % (Auto) 1.7 % (0.0-4.3) 09/06/21 13:24 Baso % (Auto) 0.5 % (0.0-1.8) 09/06/21 13:24 Lymph # (Auto) 1.8 K/mm3 (1.2-5.4) 09/06/21 13:24 [place] # (Auto) 0.5 K/mm3 (0.0-0.8) 09/06/21 13:24 Eos # (Auto) 0.2 K/mm3 (0.0-0.4) 09/06/21 13:24 Baso # (Auto) 0.0 K/mm3 (0.0-0.1) 09/06/21 13:24 Seg Neutrophils % 73.3 % (40.0-70.0) H 09/06/21 13:24 Seg Neutrophils # 6.9 K/mm3 (1.8-7.7) 09/06/21 13:24 Sodium 133 mmol/L (137-145) L 09/06/21 13:24 Potassium 4.8 mmol/L (3.6-5.0) 09/06/21 13:24 Chloride 102.4 mmol/L (98-107) 09/06/21 13:24 Carbon Dioxide 20 mmol/L (22-30) L 09/06/21 13:24 Anion Gap 15 mmol/L 09/06/21 13:24 BUN 30 mg/dL (7-17) H 09/06/21 13:24 Creatinine 1.5 mg/dL (0.6-1.2) H 09/06/21 13:24 Estimated GFR 35 ml/min 09/06/21 13:24 BUN/Creatinine Ratio 20 % 09/06/21 13:24 Glucose 156 mg/dL (65-100) H 09/06/21 13:24 POC Glucose 130 mg/dL (70-105) H 09/09/21 06:29 Hemoglobin A1c 6.7 % (4-6) H 09/06/21 13:24 Calcium 9.3 mg/dL (8.4-10.2) 09/06/21 13:24 Total Bilirubin 0.60 mg/dL (0.1-1.2) 09/06/21 13:24 AST 21 units/L (5-40) 09/06/21 13:24 ALT 10 units/L (7-56) 09/06/21 13:24 Alkaline Phosphatase 49 units/L (35-129) 09/06/21 13:24 Total Protein 7.1 g/dL (6.3-8.2) 09/06/21 13:24 Albumin 2.5 g/dL (3.9-5) L 09/06/21 13:24 Albumin/Globulin Ratio 0.5 % 09/06/21 13:24 Triglycerides 118 mg/dL (2-149) 09/06/21 13:24 Cholesterol 178 mg/dL (50-199) 09/06/21 13:24 LDL Cholesterol Direct 105 mg/dL (50-130) 09/06/21 13:24 HDL Cholesterol 60 mg/dL (40-59) H 09/06/21 13:24 Cholesterol/HDL Ratio 2.96 % 09/06/21 13:24 TSH 0.454 mlU/mL (0.270-4.200) 09/06/21 13:24 Sanabria/IV: Voiding Method Toilet Active Medications - Current Medications Current Medications: Generic Name Dose Route Start Last Admin Trade Name Merrittq PRN Reason Stop Dose Admin Allopurinol 100 mg 09/06/21 10:00 09/09/21 09:18 Allopurinol 100 Mg Tab PO 100 mg DAILY VANESSA Administration Atorvastatin Calcium 20 mg 09/06/21 22:00 09/08/21 21:13 Atorvastatin 20 Mg Tab PO 20 mg HS VANESSA Administration Buspirone HCl 5 mg 09/06/21 10:00 09/09/21 09:18 Buspirone 5 Mg Tab PO 5 mg DAILY VANESSA Administration Cetirizine HCl 10 mg 09/06/21 10:00 09/09/21 09:21 Cetirizine 10 Mg Tab PO 10 mg DAILY VANESSA Administration Clonidine HCl 0.1 mg 09/06/21 10:00 09/09/21 09:20 Clonidine 0.1 Mg Tab PO Not Given BID VANESSA Escitalopram Oxalate 20 mg 09/07/21 10:00 09/09/21 09:17 Escitalopram 10 Mg Tab PO 20 mg QDAY VANESSA Administration Losartan Potassium 100 mg 09/06/21 10:00 09/09/21 09:21 Losartan 50 Mg Tab PO 100 mg QDAY VANESSA Administration Metformin HCl 500 mg 09/07/21 10:00 09/09/21 16:19 Metformin 500 Mg Tab PO 500 mg BIDDIAB VANESSA Administration Nifedipine 30 mg 09/09/21 10:00 09/09/21 09:49 Nifedipine Xl 30 Mg Tab PO Not Given QDAY VANESSA Olanzapine 15 mg 09/10/21 10:00 Olanzapine 7.5 Mg Tab PO 09/10/21 10:01 QDAY ONE Trazodone HCl 50 mg 09/06/21 22:00 09/08/21 21:13 Trazodone 50 Mg Tab PO 50 mg QHS VANESSA Administration Nutrition/Malnutrition Assess - Dietary Evaluation Nutrition/Malnutrition Findings: Nutrition Notes Start: 09/08/21 14:14 Freq: Status: Active Protocol: Document 09/08/21 14:14 RS (Rec: 09/08/21 14:20 RS [id number]) Nutrition Notes Need for Assessment generated from: MD Order Initial or Follow up Brief Note Current Diagnosis CKD(stage I-IV),Diabetes, Hypertension,Hyperlipidemia Other Pertinent Diagnosis Major Depressive Disorder, Paranoia, Allergicv Rhinitis, CKD III, Gout Current Diet Consistent CHO Labs/Tests No recent labs since 09/06/21 Pertinent Medications reviewed Height 5 ft 10 in Weight 122.47 kg [place] Body Weight (kg) 68.18 BMI 38.7 Weight change and time frame TIFFANY wt loss and time frame Weight Status Obese Subjective/Other Information MD consult for Malnutrition for protein calorie nutrition. Upon review, serum Albumin below range at 2.6 possibly d/ t acute gout flare ups casuing flare ups and potential hx of inadquate HBV protein intake. Serum Albumin not a marker for malnutrition. Pt also is just recently dx with T2DM non insulin dependent. Pt remains on dietary supplements d/t poor PO intake during meals. Pt not an appropriate canidate for diet education at this time. Minimum of two criteria No physical signs of malnutrition Nutrition Intervention Revisit per MD consult or patient Sign Off request:
[2021-09-09] MEDS: traZODone 50 MG TAB PO SCH (21:52)
--- NOTE | 2021-09-10 10:15 | Progress Note ---
Subjective Date of service: 09/10/21 Principal diagnosis: Major Depressive Disorder Subjective Comment: The patient was seen today. She is lying in bed awake. Her thoughts are disorganized. The patient is acting bizarre. She is staring at the ceiling with her right arm stuck out. She says "my arm is still on the plane." She says "they are smoking on the plane." The patient says "my body is still on this plane. Get out of here." She says "get out of here." The patient then stops talking. 09/08 The patient was seen today. She is sitting in the dayroom. She is paranoid and delusional. She appears withdrawn. The patient says she is depressed. She then says "I killed my whole family, remember?" I tell the patient that none of that happened. She becomes upset, and says "just don't say nothing else." She refused to speak any further. REVIEW OF SYSTEMS Constitutional: Negative for weight loss ENT: Negative for stridor Respiratory: Negative for cough or hemoptysis All other systems reviewed and are negative MENTAL STATUS EXAMINATION General Appearance and Behavior: Age appropriate, good hygiene, wearing appropriate clothes, good eye contact, calm, cooperative Cooperation: Participating/engaged, but Guarded Psychomotor Behavior: Psychomotor normal Mood: confused Affect and affective range: congruent with stated mood Thought Process: Circumstantial Thought Content: paranoid Speech: normal tone and pace Suicidal Ideation: Denies Homicidal Ideation: Denies Hallucinations: Denies Delusions: None elicited Impulse Control: Limited Insight and Judgment: Limited insight and judgment Memory: Limited Attention: attentive Orientation: Alert, oriented Assessment and Plan Delusional disorder Treatment Plan Patient admitted for inpatient psychiatric evaluation, medication adjustment and close monitoring The patient's behavior, mood, sleep and appetite will be closely monitored. Patient enrolled in individual and group therapeutic sessions and encouraged to attend. Patient provided with a safe and structured environment. Patient's physical health needs will be addressed by the Hospitalist. Hospitalist Consulted Labs including CBC, CMP, Lipid profile and Hemoglobin A1C levels ordered for baseline reference Social Assessment will be completed and the Farm Mortgage Agent will work with patient and family to ensure a suitable and safe disposition Medication adjustment will be made as clinically indicated Continue Lexapro 20mg po daily Olanzapine 15mg po daily Geodon 10mg IM q4h prn agitation Start Depakote DR 125mg po BID Usual Wellness Mu-Ism/Preservation: - Start Trazodone 50 mg po QHS & 50 mg po QHS PRN between 10 PM & 2 AM for insomnia - Start Melatonin 5 mg po QHS to promote circadian rhythm The patient agreed on the treatment plan, understood the risk, benefit, alternative treatment, potential consequence of no treatment, and gave informed consent. Estimated days: 7 Post hospital care: primary care provider, psychiatric provider Case staffed with Dr. Christopher Medications and Allergies Allergies Allergy/AdvReac Type Severity Reaction Status Date / Time No Known Allergies Allergy Unverified 09/05/21 22:34 Home Medications Medication Instructions Recorded Confirmed Last Taken Type AtorvaSTATin [Lipitor] 20 mg PO HS 09/06/21 09/06/21 Unknown History Cetirizine HCl 10 mg PO DAILY 09/06/21 09/06/21 Unknown History Escitalopram [Lexapro] 10 mg PO DAILY 09/06/21 09/06/21 Unknown History Losartan Potassium 100 mg PO DAILY 09/06/21 09/06/21 Unknown History allopurinoL [Zyloprim] 100 mg PO DAILY 09/06/21 09/06/21 Unknown History busPIRone [Buspar] 5 mg PO DAILY 09/06/21 09/06/21 Unknown History cloNIDine [Catapres] 0.1 mg PO BID 09/06/21 09/06/21 Unknown History Active Meds: Active Medications Allopurinol (Allopurinol 100 Mg Tab) 100 mg PO DAILY [facility] Last Admin: 09/09/21 09:18 Dose: 100 mg Atorvastatin Calcium (Atorvastatin 20 Mg Tab) 20 mg PO [facility] Last Admin: 09/09/21 21:52 Dose: 20 mg Buspirone HCl (Buspirone 5 Mg Tab) 5 mg PO DAILY [facility] Last Admin: 09/09/21 09:18 Dose: 5 mg Cetirizine HCl (Cetirizine 10 Mg Tab) 10 mg PO DAILY [facility] Last Admin: 09/09/21 09:21 Dose: 10 mg Clonidine HCl (Clonidine 0.1 Mg Tab) 0.1 mg PO BID [facility] Last Admin: 09/09/21 21:52 Dose: 0.1 mg Escitalopram Oxalate (Escitalopram 10 Mg Tab) 20 mg PO QDAY [facility] Last Admin: 09/09/21 09:17 Dose: 20 mg Losartan Potassium (Losartan 50 Mg Tab) 100 mg PO QDAY [facility] Last Admin: 09/09/21 09:21 Dose: 100 mg Metformin HCl (Metformin 500 Mg Tab) 500 mg PO BIDDIAB [facility] Last Admin: 09/09/21 16:19 Dose: 500 mg Nifedipine (Nifedipine Xl 30 Mg Tab) 30 mg PO QDAY [facility] Last Admin: 09/09/21 09:49 Dose: Not Given Trazodone HCl (Trazodone 50 Mg Tab) 50 mg PO QHS [facility] Last Admin: 09/09/21 21:52 Dose: 50 mg Results - Results Labs/Vitals: Laboratory Last Values WBC 9.5 K/mm3 (4.5-11.0) 09/06/21 13:24 RBC 3.76 M/mm3 (3.65-5.03) 09/06/21 13:24 Hgb 11.6 gm/dl (10.1-14.3) 09/06/21 13:24 Hct 35.2 % (30.3-42.9) 09/06/21 13:24 MCV 94 fl (79-97) 09/06/21 13:24 MCH 31 pg (28-32) 09/06/21 13:24 MCHC 33 % (30-34) 09/06/21 13:24 RDW 14.1 % (13.2-15.2) 09/06/21 13:24 Plt Count 210 K/mm3 (140-440) 09/06/21 13:24 Lymph % (Auto) 19.3 % (13.4-35.0) 09/06/21 13:24 [place] % (Auto) 5.2 % (0.0-7.3) 09/06/21 13:24 Eos % (Auto) 1.7 % (0.0-4.3) 09/06/21 13:24 Baso % (Auto) 0.5 % (0.0-1.8) 09/06/21 13:24 Lymph # (Auto) 1.8 K/mm3 (1.2-5.4) 09/06/21 13:24 [place] # (Auto) 0.5 K/mm3 (0.0-0.8) 09/06/21 13:24 Eos # (Auto) 0.2 K/mm3 (0.0-0.4) 09/06/21 13:24 Baso # (Auto) 0.0 K/mm3 (0.0-0.1) 09/06/21 13:24 Seg Neutrophils % 73.3 % (40.0-70.0) H 09/06/21 13:24 Seg Neutrophils # 6.9 K/mm3 (1.8-7.7) 09/06/21 13:24 Sodium 133 mmol/L (137-145) L 09/06/21 13:24 Potassium 4.8 mmol/L (3.6-5.0) 09/06/21 13:24 Chloride 102.4 mmol/L (98-107) 09/06/21 13:24 Carbon Dioxide 20 mmol/L (22-30) L 09/06/21 13:24 Anion Gap 15 mmol/L 09/06/21 13:24 BUN 30 mg/dL (7-17) H 09/06/21 13:24 Creatinine 1.5 mg/dL (0.6-1.2) H 09/06/21 13:24 Estimated GFR 35 ml/min 09/06/21 13:24 BUN/Creatinine Ratio 20 % 09/06/21 13:24 Glucose 156 mg/dL (65-100) H 09/06/21 13:24 POC Glucose 115 mg/dL (70-105) H 09/10/21 08:17 Hemoglobin A1c 6.7 % (4-6) H 09/06/21 13:24 Calcium 9.3 mg/dL (8.4-10.2) 09/06/21 13:24 Total Bilirubin 0.60 mg/dL (0.1-1.2) 09/06/21 13:24 AST 21 units/L (5-40) 09/06/21 13:24 ALT 10 units/L (7-56) 09/06/21 13:24 Alkaline Phosphatase 49 units/L (35-129) 09/06/21 13:24 Total Protein 7.1 g/dL (6.3-8.2) 09/06/21 13:24 Albumin 2.5 g/dL (3.9-5) L 09/06/21 13:24 Albumin/Globulin Ratio 0.5 % 09/06/21 13:24 Triglycerides 118 mg/dL (2-149) 09/06/21 13:24 Cholesterol 178 mg/dL (50-199) 09/06/21 13:24 LDL Cholesterol Direct 105 mg/dL (50-130) 09/06/21 13:24 HDL Cholesterol 60 mg/dL (40-59) H 09/06/21 13:24 Cholesterol/HDL Ratio 2.96 % 09/06/21 13:24 TSH 0.454 mlU/mL (0.270-4.200) 09/06/21 13:24 Last Vital Signs Temp 97.4 F L 09/10/21 09:25 Pulse 99 H 09/10/21 09:25 Resp 20 09/10/21 09:25 BP 129/71 09/10/21 09:25 Pulse Ox 98 09/10/21 09:25
[2021-09-10] MEDS ORDERED: ZIPRASIDONE MESYLATE 20 MG VIAL IM PRN (11:00)
[2021-09-10] MEDS: metFORMIN 500 MG TAB PO SCH ×2 (11:37→17:47)
[2021-09-10] MEDS: LOSARTAN 50 MG TAB PO SCH (11:38)
[2021-09-10] MEDS: cloNIDine 0.1 MG TAB PO SCH ×2 (11:38→22:30)
[2021-09-10] MEDS: CETIRIZINE 10 MG TAB PO SCH (11:38)
[2021-09-10] MEDS: allopurinoL 100 MG TAB PO SCH (11:38)
[2021-09-10] MEDS: ESCITALOPRAM 10 MG TAB PO SCH (11:38)
[2021-09-10] MEDS: busPIRone 5 MG TAB PO SCH (11:38)
[2021-09-10] MEDS: NIFEdipine XL 30 MG TAB PO SCH (11:38)
[2021-09-10] MEDS: DIVALPROEX DR 125 MG TAB PO SCH ×2 (12:25→22:36)
--- NOTE | 2021-09-10 12:56 | Progress Note ---
Assessment and Plan Assessment and plan: Patient is a 65-year-old female past medical history of gout, hypertension, seasonal allergies, and hyperlipidemia who presented with paranoia. The patient does not have any history of psychiatric diagnoses. Medicine was consulted for medical management of nonpsychiatric diagnoses. #Major depressive disorder Management per primary team #Hypertension - home medications: Losartan 100 mg daily and clonidine 0.1 mg twice daily - current medications: Losartan 100 mg daily and clonidine 0.1 mg twice daily - SBP goal <160 and DBP goal <90 while inpatient - continue to monitor #Non-insulin dependent type II diabetes mellitus (newly diagnosed) - hemoglobin A1c: 6.7 - home regimen: None - current regimen: Metformin 500 mg twice daily - blood glucose goal 140-180 while inpatient - continue to monitor #CKD stage III Creatinine 1.5 (baseline unknown) Renally dose meds and avoid nephrotoxic drugs. Continue to monitor. Encourage p.o. intake. #Hyperlipidemia Continue home atorvastatin 20 mg daily #Gout Continue allopurinol 100 mg daily #Allergic rhinitis Continue home cetirizine 10 mg daily #Severe protein caloric malnutrition Albumin 2.6 Continue dietary supplements. Nutrition consulted; appreciate recs. #Morbid obesity #Weight loss counseling #Exercise counseling - BMI 38.7 - Counseled patient on the importance of weight loss, incorporating exercise, and dietary changes (lean meats, fresh fruits and vegetables, and water intake). Patient expresses understanding. - Time: +10 min #Advanced care planning -Disease education conducted, care plan discussed, diagnoses discussed, prognosis discussed, and patient acknowledges understanding with care plan -Time: +30 min Disposition Plan: Continue medical management Total Time Spent with Patient (Minutes): 30 minutes History Interval history: No acute events overnight. Hospitalist Physical - Constitutional Vitals: Temp Pulse Resp BP Pulse Ox 97.4 F L 99 H 20 129/71 98 09/10/21 09:25 09/10/21 09:25 09/10/21 09:25 09/10/21 09:25 09/10/21 09:25 General appearance: Present: no acute distress, well-nourished, obese - EENT Eyes: Present: PERRL, EOM intact ENT: hearing intact, clear oral mucosa - Neck Neck: Present: supple, normal ROM - Respiratory Respiratory effort: normal Respiratory: bilateral: CTA - Cardiovascular Rhythm: regular Heart Sounds: Present: S1 & S2 - Extremities Extremities: no ischemia, pulses intact, pulses symmetrical, No edema, normal temperature, normal color Peripheral Pulses: within normal limits - Abdominal General gastrointestinal: soft, non-tender, non-distended, normal bowel sounds - Integumentary Integumentary: Present: clear, warm, dry - Psychiatric Psychiatric: appropriate mood/affect - Neurologic Neurologic: CNII-XII intact, moves all extremities - Allied Health Allied health notes reviewed: nursing Results - Labs CBC & Chem 7: 09/06/21 13:24 09/06/21 13:24 Labs: Laboratory Last Values WBC 9.5 K/mm3 (4.5-11.0) 09/06/21 13:24 RBC 3.76 M/mm3 (3.65-5.03) 09/06/21 13:24 Hgb 11.6 gm/dl (10.1-14.3) 09/06/21 13:24 Hct 35.2 % (30.3-42.9) 09/06/21 13:24 MCV 94 fl (79-97) 09/06/21 13:24 MCH 31 pg (28-32) 09/06/21 13:24 MCHC 33 % (30-34) 09/06/21 13:24 RDW 14.1 % (13.2-15.2) 09/06/21 13:24 Plt Count 210 K/mm3 (140-440) 09/06/21 13:24 Lymph % (Auto) 19.3 % (13.4-35.0) 09/06/21 13:24 [place] % (Auto) 5.2 % (0.0-7.3) 09/06/21 13:24 Eos % (Auto) 1.7 % (0.0-4.3) 09/06/21 13:24 Baso % (Auto) 0.5 % (0.0-1.8) 09/06/21 13:24 Lymph # (Auto) 1.8 K/mm3 (1.2-5.4) 09/06/21 13:24 [place] # (Auto) 0.5 K/mm3 (0.0-0.8) 09/06/21 13:24 Eos # (Auto) 0.2 K/mm3 (0.0-0.4) 09/06/21 13:24 Baso # (Auto) 0.0 K/mm3 (0.0-0.1) 09/06/21 13:24 Seg Neutrophils % 73.3 % (40.0-70.0) H 09/06/21 13:24 Seg Neutrophils # 6.9 K/mm3 (1.8-7.7) 09/06/21 13:24 Sodium 133 mmol/L (137-145) L 09/06/21 13:24 Potassium 4.8 mmol/L (3.6-5.0) 09/06/21 13:24 Chloride 102.4 mmol/L (98-107) 09/06/21 13:24 Carbon Dioxide 20 mmol/L (22-30) L 09/06/21 13:24 Anion Gap 15 mmol/L 09/06/21 13:24 BUN 30 mg/dL (7-17) H 09/06/21 13:24 Creatinine 1.5 mg/dL (0.6-1.2) H 09/06/21 13:24 Estimated GFR 35 ml/min 09/06/21 13:24 BUN/Creatinine Ratio 20 % 09/06/21 13:24 Glucose 156 mg/dL (65-100) H 09/06/21 13:24 POC Glucose 115 mg/dL (70-105) H 09/10/21 08:17 Hemoglobin A1c 6.7 % (4-6) H 09/06/21 13:24 Calcium 9.3 mg/dL (8.4-10.2) 09/06/21 13:24 Total Bilirubin 0.60 mg/dL (0.1-1.2) 09/06/21 13:24 AST 21 units/L (5-40) 09/06/21 13:24 ALT 10 units/L (7-56) 09/06/21 13:24 Alkaline Phosphatase 49 units/L (35-129) 09/06/21 13:24 Total Protein 7.1 g/dL (6.3-8.2) 09/06/21 13:24 Albumin 2.5 g/dL (3.9-5) L 09/06/21 13:24 Albumin/Globulin Ratio 0.5 % 09/06/21 13:24 Triglycerides 118 mg/dL (2-149) 09/06/21 13:24 Cholesterol 178 mg/dL (50-199) 09/06/21 13:24 LDL Cholesterol Direct 105 mg/dL (50-130) 09/06/21 13:24 HDL Cholesterol 60 mg/dL (40-59) H 09/06/21 13:24 Cholesterol/HDL Ratio 2.96 % 09/06/21 13:24 TSH 0.454 mlU/mL (0.270-4.200) 09/06/21 13:24 Sanabria/IV: Voiding Method Toilet Active Medications - Current Medications Current Medications: Generic Name Dose Route Start Last Admin Trade Name Freq PRN Reason Stop Dose Admin Allopurinol 100 mg 09/06/21 10:00 09/10/21 11:38 Allopurinol 100 Mg Tab PO Not Given DAILY [facility] Atorvastatin Calcium 20 mg 09/06/21 22:00 09/09/21 21:52 Atorvastatin 20 Mg Tab PO 20 mg HS [facility] Administration Buspirone HCl 5 mg 09/06/21 10:00 09/10/21 11:38 Buspirone 5 Mg Tab PO Not Given DAILY [facility] Cetirizine HCl 10 mg 09/06/21 10:00 09/10/21 11:38 Cetirizine 10 Mg Tab PO Not Given DAILY [facility] Clonidine HCl 0.1 mg 09/06/21 10:00 09/10/21 11:38 Clonidine 0.1 Mg Tab PO Not Given BID [facility] Divalproex Sodium 125 mg 09/10/21 11:00 09/10/21 12:[address] 125 Mg Tab PO Not Given BID [facility] Escitalopram Oxalate 20 mg 09/07/21 10:00 09/10/21 11:38 Escitalopram 10 Mg Tab PO Not Given QDAY [facility] Losartan Potassium 100 mg 09/06/21 10:00 09/10/21 11:38 Losartan 50 Mg Tab PO Not Given QDAY [facility] Metformin HCl 500 mg 09/07/21 10:00 09/10/21 11:37 Metformin 500 Mg Tab PO Not Given BIDDIAB [facility] Nifedipine 30 mg 09/09/21 10:00 09/10/21 11:38 Nifedipine Xl 30 Mg Tab PO Not Given QDAY [facility] Trazodone HCl 50 mg 09/06/21 22:00 09/09/21 21:52 Trazodone 50 Mg Tab PO 50 mg QHS [facility] Administration Ziprasidone 10 mg 09/10/21 11:00 Ziprasidone Mesylate 20 Mg Vial IM Q4H PRN Agitation Nutrition/Malnutrition Assess - Dietary Evaluation Nutrition/Malnutrition Findings: Nutrition Notes Start: 09/08/21 14:14 Freq: Status: Active Protocol: Document 09/08/21 14:14 RS (Rec: 09/08/21 14:20 RS [id number]) Nutrition Notes Need for Assessment generated from: MD Order Initial or Follow up Brief Note Current Diagnosis CKD(stage I-IV),Diabetes, Hypertension,Hyperlipidemia Other Pertinent Diagnosis Major Depressive Disorder, Paranoia, Allergicv Rhinitis, CKD III, Gout Current Diet Consistent CHO Labs/Tests No recent labs since 09/06/21 Pertinent Medications reviewed Height 5 ft 10 in Weight 122.47 kg [place] Body Weight (kg) 68.18 BMI 38.7 Weight change and time frame TIFFANY wt loss and time frame Weight Status Obese Subjective/Other Information MD consult for Malnutrition for protein calorie nutrition. Upon review, serum Albumin below range at 2.6 possibly d/ t acute gout flare ups casuing flare ups and potential hx of inadquate HBV protein intake. Serum Albumin not a marker for malnutrition. Pt also is just recently dx with T2DM non insulin dependent. Pt remains on dietary supplements d/t poor PO intake during meals. Pt not an appropriate canidate for diet education at this time. Minimum of two criteria No physical signs of malnutrition Nutrition Intervention Revisit per MD consult or patient Sign Off request:
[2021-09-10] MEDS: traZODone 50 MG TAB PO SCH (22:30)
--- NOTE | 2021-09-11 09:44 | Progress Note ---
Subjective Date of service: 09/11/21 Principal diagnosis: Major Depressive Disorder Subjective Comment: The patient was seen today. Staff and hospitalist with the patient. The patient's BP was initially low, but has normalized now. The patient was taken to the day room, she is shaking and asking to go back to bed. She is irritable and acting bizarre. I touch her and she shakes vigorously and tells me not to touch her. She says "I don't feel good." I ask the patient why she didn't feel good, she says "put me in my room. That chair is nasty." She refused to answer if she was having hallucinations or feeling suicidal. She says "Shhhhhh, I want to go to my room." 09/10 The patient was seen today. She is lying in bed awake. Her thoughts are disorganized. The patient is acting bizarre. She is staring at the ceiling with her right arm stuck out. She says "my arm is still on the plane." She says "they are smoking on the plane." The patient says "my body is still on this plane. Get out of here." She says "get out of here." The patient then stops talking. 09/09 The patient was seen today. She is sleeping. She is irritable at me waking her up. She tells me to "shhhhhh" to silence me. She verbalizes being depressed. She says "I don't want to talk about it," when asking her was she suicidal. The nurse says the patient was given Geodon prn and it just started to take affect this morning. Nurse note states the patient was agitated, combative and hallucinating. 09/08 The patient was seen today. She is sitting in the dayroom. She is paranoid and delusional. She appears withdrawn. The patient says she is depressed. She then says "I killed my whole family, remember?" I tell the patient that none of that happened. She becomes upset, and says "just don't say nothing else." She refused to speak any further. REVIEW OF SYSTEMS Constitutional: Negative for weight loss ENT: Negative for stridor Respiratory: Negative for cough or hemoptysis All other systems reviewed and are negative MENTAL STATUS EXAMINATION General Appearance and Behavior: Age appropriate, good hygiene, wearing appropriate clothes, good eye contact, calm, cooperative Cooperation: Participating/engaged, but Guarded Psychomotor Behavior: Psychomotor normal Mood: confused Affect and affective range: congruent with stated mood Thought Process: Circumstantial Thought Content: paranoid Speech: normal tone and pace Suicidal Ideation: Denies Homicidal Ideation: Denies Hallucinations: Denies Delusions: None elicited Impulse Control: Limited Insight and Judgment: Limited insight and judgment Memory: Limited Attention: attentive Orientation: Alert, oriented Assessment and Plan Delusional disorder Treatment Plan Patient admitted for inpatient psychiatric evaluation, medication adjustment and close monitoring The patient's behavior, mood, sleep and appetite will be closely monitored. Patient enrolled in individual and group therapeutic sessions and encouraged to attend. Patient provided with a safe and structured environment. Patient's physical health needs will be addressed by the Hospitalist. Hospitali st Consulted Labs including CBC, CMP, Lipid profile and Hemoglobin A1C levels ordered for baseline reference Social Assessment will be completed and the Nutritional Services Host will work with patient and family to ensure a suitable and safe disposition Medication adjustment will be made as clinically indicated Usual Wellness Alevism/Preservation: - Start Trazodone 50 mg po QHS & 50 mg po QHS PRN between 10 PM & 2 AM for insomnia - Start Melatonin 5 mg po QHS to promote circadian rhythm The patient agreed on the treatment plan, understood the risk, benefit, alternative treatment, potential consequence of no treatment, and gave informed consent. Estimated days: 7 Post hospital care: primary care provider, psychiatric provider Case staffed with Dr. Christopher Medications and Allergies Allergies Allergy/AdvReac Type Severity Reaction Status Date / Time No Known Allergies Allergy Unverified 09/05/21 22:34 Home Medications Medication Instructions Recorded Confirmed Last Taken Type AtorvaSTATin [Lipitor] 20 mg PO HS 09/06/21 09/06/21 Unknown History Cetirizine HCl 10 mg PO DAILY 09/06/21 09/06/21 Unknown History Escitalopram [Lexapro] 10 mg PO DAILY 09/06/21 09/06/21 Unknown History Losartan Potassium 100 mg PO DAILY 09/06/21 09/06/21 Unknown History allopurinoL [Zyloprim] 100 mg PO DAILY 09/06/21 09/06/21 Unknown History busPIRone [Buspar] 5 mg PO DAILY 09/06/21 09/06/21 Unknown History cloNIDine [Catapres] 0.1 mg PO BID 09/06/21 09/06/21 Unknown History Active Meds: Active Medications Allopurinol (Allopurinol 100 Mg Tab) 100 mg PO DAILY [facility] Last Admin: 09/10/21 11:38 Dose: Not Given Atorvastatin Calcium (Atorvastatin 20 Mg Tab) 20 mg PO HS [facility] Last Admin: 09/10/21 22:30 Dose: Not Given Buspirone HCl (Buspirone 5 Mg Tab) 5 mg PO DAILY [facility] Last Admin: 09/10/21 11:38 Dose: Not Given Cetirizine HCl (Cetirizine 10 Mg Tab) 10 mg PO DAILY [facility] Last Admin: 09/10/21 11:38 Dose: Not Given Divalproex Sodium (Divalproex Dr 125 Mg Tab) 125 mg PO BID [facility] Last Admin: 09/10/21 22:36 Dose: Not Given Escitalopram Oxalate (Escitalopram 10 Mg Tab) 20 mg PO QDAY [facility] Last Admin: 09/10/21 11:38 Dose: Not Given Metformin HCl (Metformin 500 Mg Tab) 500 mg PO BIDDIAB [facility] Last Admin: 09/10/21 17:47 Dose: Not Given Nifedipine (Nifedipine Xl 30 Mg Tab) 30 mg PO QDAY [facility] Last Admin: 09/10/21 11:38 Dose: Not Given Trazodone HCl (Trazodone 50 Mg Tab) 50 mg PO QHS [facility] Last Admin: 09/10/21 22:30 Dose: Not Given Ziprasidone (Ziprasidone Mesylate 20 Mg Vial) 10 mg IM Q4H PRN PRN Reason: Agitation Results - Results Labs/Vitals: Laboratory Last Values WBC 9.5 K/mm3 (4.5-11.0) 09/06/21 13:24 RBC 3.76 M/mm3 (3.65-5.03) 09/06/21 13:24 Hgb 11.6 gm/dl (10.1-14.3) 09/06/21 13:24 Hct 35.2 % (30.3-42.9) 09/06/21 13:24 MCV 94 fl (79-97) 09/06/21 13:24 MCH 31 pg (28-32) 09/06/21 13:24 MCHC 33 % (30-34) 09/06/21 13:24 RDW 14.1 % (13.2-15.2) 09/06/21 13:24 Plt Count 210 K/mm3 (140-440) 09/06/21 13:24 Lymph % (Auto) 19.3 % (13.4-35.0) 09/06/21 13:24 [place] % (Auto) 5.2 % (0.0-7.3) 09/06/21 13:24 Eos % (Auto) 1.7 % (0.0-4.3) 09/06/21 13:24 Baso % (Auto) 0.5 % (0.0-1.8) 09/06/21 13:24 Lymph # (Auto) 1.8 K/mm3 (1.2-5.4) 09/06/21 13:24 [place] # (Auto) 0.5 K/mm3 (0.0-0.8) 09/06/21 13:24 Eos # (Auto) 0.2 K/mm3 (0.0-0.4) 09/06/21 13:24 Baso # (Auto) 0.0 K/mm3 (0.0-0.1) 09/06/21 13:24 Seg Neutrophils % 73.3 % (40.0-70.0) H 09/06/21 13:24 Seg Neutrophils # 6.9 K/mm3 (1.8-7.7) 09/06/21 13:24 Sodium 133 mmol/L (137-145) L 09/06/21 13:24 Potassium 4.8 mmol/L (3.6-5.0) 09/06/21 13:24 Chloride 102.4 mmol/L (98-107) 09/06/21 13:24 Carbon Dioxide 20 mmol/L (22-30) L 09/06/21 13:24 Anion Gap 15 mmol/L 09/06/21 13:24 BUN 30 mg/dL (7-17) H 09/06/21 13:24 Creatinine 1.5 mg/dL (0.6-1.2) H 09/06/21 13:24 Estimated GFR 35 ml/min 09/06/21 13:24 BUN/Creatinine Ratio 20 % 09/06/21 13:24 Glucose 156 mg/dL (65-100) H 09/06/21 13:24 POC Glucose 115 mg/dL (70-105) H 09/10/21 08:17 Hemoglobin A1c 6.7 % (4-6) H 09/06/21 13:24 Calcium 9.3 mg/dL (8.4-10.2) 09/06/21 13:24 Total Bilirubin 0.60 mg/dL (0.1-1.2) 09/06/21 13:24 AST 21 units/L (5-40) 09/06/21 13:24 ALT 10 units/L (7-56) 09/06/21 13:24 Alkaline Phosphatase 49 units/L (35-129) 09/06/21 13:24 Total Protein 7.1 g/dL (6.3-8.2) 09/06/21 13:24 Albumin 2.5 g/dL (3.9-5) L 09/06/21 13:24 Albumin/Globulin Ratio 0.5 % 09/06/21 13:24 Triglycerides 118 mg/dL (2-149) 09/06/21 13:24 Cholesterol 178 mg/dL (50-199) 09/06/21 13:24 LDL Cholesterol Direct 105 mg/dL (50-130) 09/06/21 13:24 HDL Cholesterol 60 mg/dL (40-59) H 09/06/21 13:24 Cholesterol/HDL Ratio 2.96 % 09/06/21 13:24 TSH 0.454 mlU/mL (0.270-4.200) 09/06/21 13:24 Last Vital Signs Temp 97.4 F L 09/10/21 09:25 Pulse 107 H 09/11/21 09:18 Resp 20 09/10/21 09:25 BP 112/58 09/11/21 09:17 Pulse Ox 90 09/11/21 09:18
[2021-09-11] MEDS: CETIRIZINE 10 MG TAB PO SCH (10:13)
[2021-09-11] MEDS: metFORMIN 500 MG TAB PO SCH ×2 (10:13→16:47)
[2021-09-11] MEDS: NIFEdipine XL 30 MG TAB PO SCH (10:14)
[2021-09-11] MEDS: allopurinoL 100 MG TAB PO SCH (16:47)
[2021-09-11] MEDS: DIVALPROEX DR 125 MG TAB PO SCH ×2 (16:48→21:20)
[2021-09-11] MEDS: ESCITALOPRAM 10 MG TAB PO SCH (16:49)
[2021-09-11] MEDS: busPIRone 5 MG TAB PO SCH (16:49)
--- NOTE | 2021-09-11 20:46 | Progress Note ---
Assessment and Plan - Patient Problems (1) Vascular dementia with behavioral disturbance Current Visit: Yes Status: Acute Plan to address problem: Verbal prompting, verbal redirection, benzodiazepine therapy as clinically indicated. (2) Cerebral atherosclerosis Current Visit: Yes Status: Acute Plan to address problem: Risk factor reduction, antiplatelet therapy as clinically indicated. (3) Obesity hypoventilation syndrome Current Visit: Yes Status: Acute Plan to address problem: Balanced diet, increase physical activity discharge, outpatient pulmonary fo llow-up for sleep study. (4) Acute psychosis Current Visit: Yes Status: Acute Plan to address problem: Supportive care, continue medical management (5) Hypertension Current Visit: Yes Status: Acute Qualifiers: Hypertension type: primary hypertension Qualified Code(s): I10 - Essential (primary) hypertension Plan to address problem: Monitor blood pressure every shift, continue medical management (6) Hyperlipidemia Current Visit: Yes Status: Acute Qualifiers: Hyperlipidemia type: mixed hyperlipidemia Qualified Code(s): E78.2 - Mixed hyperlipidemia Plan to address problem: Low-cholesterol diet, supportive care, (7) Seasonal allergies Current Visit: Yes Status: Acute Plan to address problem: Continue oral antihistamine therapy as clinically indicated. (8) Advance care planning Current Visit: Yes Status: Acute Plan to address problem: Disease education conducted, care plan discussed, diagnoses discussed, prognosis discussed, patient is full code. Patient acknowledges understanding and agreeme nt with care plan, +30 minutes. History Interval history: 65 YO Female with Vascular Dementia with Behavioral Disturbance, Cerebral Atherosclerosis, HTN, HLD, Gout, Seasonal Allergies, Acute Psychosis admitted to [facility] for psychiatric stabilization. Consult placed with Dr. Pulido for medical management. Patient seen and evaluated in the recreation room. Patient resting comfortably. No reported nursing events. Patient denies pain. Patient is at baseline level of cognition and function. Hospitalist Physical - Constitutional Vitals: Temp Pulse Resp BP Pulse Ox 97.4 F L 107 H 20 112/58 90 09/10/21 09:25 09/11/21 09:18 09/10/21 09:25 09/11/21 09:17 09/11/21 09:18 General appearance: Present: no acute distress, well-nourished, obese - EENT Eyes: Present: PERRL ENT: hearing decreased - Neck Neck: Present: supple - Respiratory Respiratory effort: labored Respiratory: bilateral: CTA - Cardiovascular Rhythm: regular Heart Sounds: Present: S1 & S2 - Extremities Extremities: no ischemia Peripheral Pulses: within normal limits - Abdominal General gastrointestinal: soft, non-tender, non-distended - Integumentary Integumentary: Present: clear, dry - Psychiatric Psychiatric: cooperative Results - Labs CBC & Chem 7: 09/06/21 13:24 09/06/21 13:24 Labs: Laboratory Last Values WBC 9.5 K/mm3 (4.5-11.0) 09/06/21 13:24 RBC 3.76 M/mm3 (3.65-5.03) 09/06/21 13:24 Hgb 11.6 gm/dl (10.1-14.3) 09/06/21 13:24 Hct 35.2 % (30.3-42.9) 09/06/21 13:24 MCV 94 fl (79-97) 09/06/21 13:24 MCH 31 pg (28-32) 09/06/21 13:24 MCHC 33 % (30-34) 09/06/21 13:24 RDW 14.1 % (13.2-15.2) 09/06/21 13:24 Plt Count 210 K/mm3 (140-440) 09/06/21 13:24 Lymph % (Auto) 19.3 % (13.4-35.0) 09/06/21 13:24 [place] % (Auto) 5.2 % (0.0-7.3) 09/06/21 13:24 Eos % (Auto) 1.7 % (0.0-4.3) 09/06/21 13:24 Baso % (Auto) 0.5 % (0.0-1.8) 09/06/21 13:24 Lymph # (Auto) 1.8 K/mm3 (1.2-5.4) 09/06/21 13:24 [place] # (Auto) 0.5 K/mm3 (0.0-0.8) 09/06/21 13:24 Eos # (Auto) 0.2 K/mm3 (0.0-0.4) 09/06/21 13:24 Baso # (Auto) 0.0 K/mm3 (0.0-0.1) 09/06/21 13:24 Seg Neutrophils % 73.3 % (40.0-70.0) H 09/06/21 13:24 Seg Neutrophils # 6.9 K/mm3 (1.8-7.7) 09/06/21 13:24 Sodium 133 mmol/L (137-145) L 09/06/21 13:24 Potassium 4.8 mmol/L (3.6-5.0) 09/06/21 13:24 Chloride 102.4 mmol/L (98-107) 09/06/21 13:24 Carbon Dioxide 20 mmol/L (22-30) L 09/06/21 13:24 Anion Gap 15 mmol/L 09/06/21 13:24 BUN 30 mg/dL (7-17) H 09/06/21 13:24 Creatinine 1.5 mg/dL (0.6-1.2) H 09/06/21 13:24 Estimated GFR 35 ml/min 09/06/21 13:24 BUN/Creatinine Ratio 20 % 09/06/21 13:24 Glucose 156 mg/dL (65-100) H 09/06/21 13:24 POC Glucose 108 mg/dL (70-105) H 09/11/21 12:41 Hemoglobin A1c 6.7 % (4-6) H 09/06/21 13:24 Calcium 9.3 mg/dL (8.4-10.2) 09/06/21 13:24 Total Bilirubin 0.60 mg/dL (0.1-1.2) 09/06/21 13:24 AST 21 units/L (5-40) 09/06/21 13:24 ALT 10 units/L (7-56) 09/06/21 13:24 Alkaline Phosphatase 49 units/L (35-129) 09/06/21 13:24 Total Protein 7.1 g/dL (6.3-8.2) 09/06/21 13:24 Albumin 2.5 g/dL (3.9-5) L 09/06/21 13:24 Albumin/Globulin Ratio 0.5 % 09/06/21 13:24 Triglycerides 118 mg/dL (2-149) 09/06/21 13:24 Cholesterol 178 mg/dL (50-199) 09/06/21 13:24 LDL Cholesterol Direct 105 mg/dL (50-130) 09/06/21 13:24 HDL Cholesterol 60 mg/dL (40-59) H 09/06/21 13:24 Cholesterol/HDL Ratio 2.96 % 09/06/21 13:24 TSH 0.454 mlU/mL (0.270-4.200) 09/06/21 13:24 [place]/IV: Voiding Method Toilet Active Medications - Current Medications Current Medications: Generic Name Dose Route Start Last Admin Trade Name Freq PRN Reason Stop Dose Admin Allopurinol 100 mg 09/06/21 10:00 09/11/21 16:47 Allopurinol 100 Mg Tab PO 100 mg DAILY [facility] Administration Atorvastatin Calcium 20 mg 09/06/21 22:00 09/10/21 22:30 Atorvastatin 20 Mg Tab PO Not Given HS [facility] Buspirone HCl 5 mg 09/06/21 10:00 09/11/21 16:49 Buspirone 5 Mg Tab PO 5 mg DAILY [facility] Administration Cetirizine HCl 10 mg 09/06/21 10:00 09/11/21 10:13 Cetirizine 10 Mg Tab PO Not Given DAILY [facility] Divalproex Sodium 125 mg 09/10/21 11:00 09/11/21 16:[address] 125 Mg Tab PO Not Given BID [facility] Escitalopram Oxalate 20 mg 09/07/21 10:00 09/11/21 16:49 Escitalopram 10 Mg Tab PO 20 mg QDAY [facility] Administration Metformin HCl 500 mg 09/07/21 10:00 09/11/21 16:47 Metformin 500 Mg Tab PO 500 mg BIDDIAB [facility] Administration Nifedipine 30 mg 09/09/21 10:00 09/11/21 10:14 Nifedipine Xl 30 Mg Tab PO Not Given QDAY [facility] Trazodone HCl 50 mg 09/06/21 22:00 09/10/21 22:30 Trazodone 50 Mg Tab PO Not Given QHS [facility] Ziprasidone 10 mg 09/10/21 11:00 Ziprasidone Mesylate 20 Mg Vial IM Q4H PRN Agitation Nutrition/Malnutrition Assess - Dietary Evaluation Nutrition/Malnutrition Findings: Nutrition Notes Start: 09/08/21 14:14 Freq: Status: Active Protocol: Document 09/08/21 14:14 RS (Rec: 09/08/21 14:20 RS [id number]) Nutrition Notes Need for Assessment generated from: MD Order Initial or Follow up Brief Note Current Diagnosis CKD(stage I-IV),Diabetes, Hypertension,Hyperlipidemia Other Pertinent Diagnosis Major Depressive Disorder, Paranoia, Allergicv Rhinitis, CKD III, Gout Current Diet Consistent CHO Labs/Tests No recent labs since 09/06/21 Pertinent Medications reviewed Height 5 ft 10 in Weight 122.47 kg [place] Body Weight (kg) 68.18 BMI 38.7 Weight change and time frame TIFFANY wt loss and time frame Weight Status Obese Subjective/Other Information MD consult for Malnutrition for protein calorie nutrition. Upon review, serum Albumin below range at 2.6 possibly d/ t acute gout flare ups casuing flare ups and potential hx of inadquate HBV protein intake. Serum Albumin not a marker for malnutrition. Pt also is just recently dx with T2DM non insulin dependent. Pt remains on dietary supplements d/t poor PO intake during meals. Pt not an appropriate canidate for diet education at this time. Minimum of two criteria No physical signs of malnutrition Nutrition Intervention Revisit per MD consult or patient Sign Off request:
[2021-09-11] MEDS: traZODone 50 MG TAB PO SCH (21:20)
[2021-09-12] MEDS: metFORMIN 500 MG TAB PO SCH ×2 (08:52→16:45)
[2021-09-12] MEDS: NIFEdipine XL 30 MG TAB PO SCH (09:00)
[2021-09-12] MEDS: allopurinoL 100 MG TAB PO SCH (09:01)
[2021-09-12] MEDS: busPIRone 5 MG TAB PO SCH (09:01)
[2021-09-12] MEDS: DIVALPROEX DR 125 MG TAB PO SCH ×2 (09:01→21:22)
[2021-09-12] MEDS: CETIRIZINE 10 MG TAB PO SCH (09:01)
[2021-09-12] MEDS: ESCITALOPRAM 10 MG TAB PO SCH (09:01)
--- NOTE | 2021-09-12 10:20 | Progress Note ---
Subjective Date of service: 09/12/21 Principal diagnosis: Major Depressive Disorder Subjective Comment: The patient was seen today. She is in the dayroom with her head down. She easily arouses. She says "I'm just here." She verbalizes feeling depressed. I ask the patient why is she depressed, she replies "you know why." The patient says "I don't really want to live." She then says "I don't want to talk about it." 09/11 The patient was seen today. Staff and hospitalist with the patient. The patient's BP was initially low, but has normalized now. The patient was taken to the day room, she is shaking and asking to go back to bed. She is irritable and acting bizarre. I touch her and she shakes vigorously and tells me not to touch her. She says "I don't feel good." I ask the patient why she didn't feel good, she says "put me in my room. That chair is nasty." She refused to answer if she was having hallucinations or feeling suicidal. She says "Shhhhhh, I want to go to my room." 09/10 The patient was seen today. She is lying in bed awake. Her thoughts are disorganized. The patient is acting bizarre. She is staring at the ceiling with her right arm stuck out. She says "my arm is still on the plane." She says "they are smoking on the plane." The patient says "my body is still on this plane. Get out of here." She says "get out of here." The patient then stops talking. 09/09 The patient was seen today. She is sleeping. She is irritable at me waking her up. She tells me to "shhhhhh" to silence me. She verbalizes being depressed. She says "I don't want to talk about it," when asking her was she suicidal. The nurse says the patient was given Geodon prn and it just started to take affect this morning. Nurse note states the patient was agitated, combative and hallucinating. 09/08 The patient was seen today. She is sitting in the dayroom. She is paranoid and delusional. She appears withdrawn. The patient says she is depressed. She then says "I killed my whole family, remember?" I tell the patient that none of that happened. She becomes upset, and says "just don't say nothing else." She refused to speak any further. REVIEW OF SYSTEMS Constitutional: Negative for weight loss ENT: Negative for stridor Respiratory: Negative for cough or hemoptysis All other systems reviewed and are negative MENTAL STATUS EXAMINATION General Appearance and Behavior: Age appropriate, good hygiene, wearing appropriate clothes, good eye contact, calm, cooperative Cooperation: Participating/engaged, but Guarded Psychomotor Behavior: Psychomotor normal Mood: confused Affect and affective range: congruent with stated mood Thought Process: Circumstantial Thought Content: paranoid Speech: normal tone and pace Suicidal Ideation: Denies Homicidal Ideation: Denies Hallucinations: Denies Delusions: None elicited Impulse Control: Limited Insight and Judgment: Limited insight and judgment Memory: Limited Attention: attentive Orientation: Alert, oriented Assessment and Plan Delusional disorder Treatment Plan Patient admitted for inpatient psychiatric evaluation, medication adjustment and close monitoring The patient's behavior, mood, sleep and appetite will be closely monitored. Patient enrolled in individual and group therapeutic sessions and encouraged to attend. Patient provided with a safe and structured environment. Patient's physical health needs will be addressed by the Hospitalist. Hospitalist Consulted Labs including CBC, CMP, Lipid profile and Hemoglobin A1C levels ordered for baseline reference Social Assessment will be completed and the County Commissioner will work with patient and family to ensure a suitable and safe disposition Medication adjustment will be made as clinically indicated Start Abilify 5mg po daily Usual Wellness [place] Orthodox/Preservation: - Start Trazodone 50 mg po QHS & 50 mg po QHS PRN between 10 PM & 2 AM for insomnia - Start Melatonin 5 mg po QHS to promote circadian rhythm The patient agreed on the treatment plan, understood the risk, benefit, alternative treatment, potential consequence of no treatment, and gave informed consent. Estimated days: 7 Post hospital care: primary care provider, psychiatric provider Case staffed with Dr. Christopher Medications and Allergies Allergies Allergy/AdvReac Type Severity Reaction Status Date / Time No Known Allergies Allergy Unverified 09/05/21 22:34 Home Medications Medication Instructions Recorded Confirmed Last Taken Type AtorvaSTATin [Lipitor] 20 mg PO HS 09/06/21 09/06/21 Unknown History Cetirizine HCl 10 mg PO DAILY 09/06/21 09/06/21 Unknown History Escitalopram [Lexapro] 10 mg PO DAILY 09/06/21 09/06/21 Unknown History Losartan Potassium 100 mg PO DAILY 09/06/21 09/06/21 Unknown History allopurinoL [Zyloprim] 100 mg PO DAILY 09/06/21 09/06/21 Unknown History busPIRone [Buspar] 5 mg PO DAILY 09/06/21 09/06/21 Unknown History cloNIDine [Catapres] 0.1 mg PO BID 09/06/21 09/06/21 Unknown History Active Meds: Active Medications Allopurinol (Allopurinol 100 Mg Tab) 100 mg PO DAILY [facility] Last Admin: 09/12/21 09:01 Dose: 100 mg Atorvastatin Calcium (Atorvastatin 20 Mg Tab) 20 mg PO HS [facility] Last Admin: 09/11/21 21:21 Dose: 20 mg Buspirone HCl (Buspirone 5 Mg Tab) 5 mg PO DAILY [facility] Last Admin: 09/12/21 09:01 Dose: 5 mg Cetirizine HCl (Cetirizine 10 Mg Tab) 10 mg PO DAILY [facility] Last Admin: 09/12/21 09:01 Dose: 10 mg Divalproex Sodium (Divalproex Dr 125 Mg Tab) 125 mg PO BID [facility] Last Admin: 09/12/21 09:01 Dose: 125 mg Escitalopram Oxalate (Escitalopram 10 Mg Tab) 20 mg PO QDAY [facility] Last Admin: 09/12/21 09:01 Dose: 20 mg Metformin HCl (Metformin 500 Mg Tab) 500 mg PO BIDDIAB [facility] Last Admin: 09/12/21 08:52 Dose: 500 mg Nifedipine (Nifedipine Xl 30 Mg Tab) 30 mg PO QDAY [facility] Last Admin: 09/12/21 09:00 Dose: 30 mg Trazodone HCl (Trazodone 50 Mg Tab) 50 mg PO QHS [facility] Last Admin: 09/11/21 21:20 Dose: 50 mg Ziprasidone (Ziprasidone Mesylate 20 Mg Vial) 10 mg IM Q4H PRN PRN Reason: Agitation Results - Results Labs/Vitals: Laboratory Last Values WBC 9.5 K/mm3 (4.5-11.0) 09/06/21 13:24 RBC 3.76 M/mm3 (3.65-5.03) 09/06/21 13:24 Hgb 11.6 gm/dl (10.1-14.3) 09/06/21 13:24 Hct 35.2 % (30.3-42.9) 09/06/21 13:24 MCV 94 fl (79-97) 09/06/21 13:24 MCH 31 pg (28-32) 09/06/21 13:24 MCHC 33 % (30-34) 09/06/21 13:24 RDW 14.1 % (13.2-15.2) 09/06/21 13:24 Plt Count 210 K/mm3 (140-440) 09/06/21 13:24 Lymph % (Auto) 19.3 % (13.4-35.0) 09/06/21 13:24 [place] % (Auto) 5.2 % (0.0-7.3) 09/06/21 13:24 Eos % (Auto) 1.7 % (0.0-4.3) 09/06/21 13:24 Baso % (Auto) 0.5 % (0.0-1.8) 09/06/21 13:24 Lymph # (Auto) 1.8 K/mm3 (1.2-5.4) 09/06/21 13:24 [place] # (Auto) 0.5 K/mm3 (0.0-0.8) 09/06/21 13:24 Eos # (Auto) 0.2 K/mm3 (0.0-0.4) 09/06/21 13:24 Baso # (Auto) 0.0 K/mm3 (0.0-0.1) 09/06/21 13:24 Seg Neutrophils % 73.3 % (40.0-70.0) H 09/06/21 13:24 Seg Neutrophils # 6.9 K/mm3 (1.8-7.7) 09/06/21 13:24 Sodium 133 mmol/L (137-145) L 09/06/21 13:24 Potassium 4.8 mmol/L (3.6-5.0) 09/06/21 13:24 Chloride 102.4 mmol/L (98-107) 09/06/21 13:24 Carbon Dioxide 20 mmol/L (22-30) L 09/06/21 13:24 Anion Gap 15 mmol/L 09/06/21 13:24 BUN 30 mg/dL (7-17) H 09/06/21 13:24 Creatinine 1.5 mg/dL (0.6-1.2) H 09/06/21 13:24 Estimated GFR 35 ml/min 09/06/21 13:24 BUN/Creatinine Ratio 20 % 09/06/21 13:24 Glucose 156 mg/dL (65-100) H 09/06/21 13:24 POC Glucose 113 mg/dL (70-105) H 09/12/21 07:27 Hemoglobin A1c 6.7 % (4-6) H 09/06/21 13:24 Calcium 9.3 mg/dL (8.4-10.2) 09/06/21 13:24 Total Bilirubin 0.60 mg/dL (0.1-1.2) 09/06/21 13:24 AST 21 units/L (5-40) 09/06/21 13:24 ALT 10 units/L (7-56) 09/06/21 13:24 Alkaline Phosphatase 49 units/L (35-129) 09/06/21 13:24 Total Protein 7.1 g/dL (6.3-8.2) 09/06/21 13:24 Albumin 2.5 g/dL (3.9-5) L 09/06/21 13:24 Albumin/Globulin Ratio 0.5 % 09/06/21 13:24 Triglycerides 118 mg/dL (2-149) 09/06/21 13:24 Cholesterol 178 mg/dL (50-199) 09/06/21 13:24 LDL Cholesterol Direct 105 mg/dL (50-130) 09/06/21 13:24 HDL Cholesterol 60 mg/dL (40-59) H 09/06/21 13:24 Cholesterol/HDL Ratio 2.96 % 09/06/21 13:24 TSH 0.454 mlU/mL (0.270-4.200) 09/06/21 13:24 Last Vital Signs Temp 97.4 F L 09/12/21 08:55 Pulse 93 H 09/12/21 08:55 Resp 16 09/12/21 08:55 BP 128/62 09/12/21 08:55 Pulse Ox 94 09/12/21 08:55
[2021-09-12] MEDS: ARIPiprazole 5 MG TAB PO SCH (11:30)
--- NOTE | 2021-09-12 20:50 | Progress Note ---
Assessment and Plan - Patient Problems (1) Vascular dementia with behavioral disturbance Current Visit: Yes Status: Acute Plan to address problem: Verbal prompting, verbal redirection, benzodiazepine therapy as clinically indicated. (2) Cerebral atherosclerosis Current Visit: Yes Status: Acute Plan to address problem: Risk factor reduction, antiplatelet therapy as clinically indicated. (3) Obesity hypoventilation syndrome Current Visit: Yes Status: Acute Plan to address problem: Balanced diet, increase physical activity discharge, outpatient pulmonary fo llow-up for sleep study. (4) Acute psychosis Current Visit: Yes Status: Acute Plan to address problem: Supportive care, continue medical management (5) Hypertension Current Visit: Yes Status: Acute Qualifiers: Hypertension type: primary hypertension Qualified Code(s): I10 - Essential (primary) hypertension Plan to address problem: Monitor blood pressure every shift, continue medical management (6) Hyperlipidemia Current Visit: Yes Status: Acute Qualifiers: Hyperlipidemia type: mixed hyperlipidemia Qualified Code(s): E78.2 - Mixed hyperlipidemia Plan to address problem: Low-cholesterol diet, supportive care, (7) Seasonal allergies Current Visit: Yes Status: Acute Plan to address problem: Continue oral antihistamine therapy as clinically indicated. (8) Advance care planning Current Visit: Yes Status: Acute Plan to address problem: Disease education conducted, care plan discussed, diagnoses discussed, prognosis discussed, patient is full code. Patient acknowledges understanding and agreeme nt with care plan, +30 minutes. History Interval history: 65 YO Female with Vascular Dementia with Behavioral Disturbance, Cerebral Atherosclerosis, HTN, HLD, Gout, Seasonal Allergies, Acute Psychosis admitted to [facility] for psychiatric stabilization. Consult placed with Dr. Pulido for medical management. Patient seen and evaluated in the recreation room. Patient resting comfortably. No reported nursing events. Patient denies pain. Patient is at baseline level of cognition and function. Hospitalist Physical - Constitutional Vitals: Temp Pulse Resp BP Pulse Ox 97.4 F L 93 H 16 128/62 94 09/12/21 08:55 09/12/21 08:55 09/12/21 08:55 09/12/21 08:55 09/12/21 08:55 General appearance: Present: no acute distress, well-nourished, obese - EENT Eyes: Present: PERRL ENT: hearing decreased - Neck Neck: Present: supple - Respiratory Respiratory effort: normal Respiratory: right: CTA - Cardiovascular Rhythm: regular Heart Sounds: Present: S1 & S2 - Extremities Extremities: no ischemia Peripheral Pulses: within normal limits - Abdominal General gastrointestinal: soft, non-tender, non-distended - Integumentary Integumentary: Present: clear, dry - Psychiatric Psychiatric: cooperative - Neurologic Neurologic: CNII-XII intact Results - Labs CBC & Chem 7: 09/06/21 13:24 09/06/21 13:24 Labs: Laboratory Last Values WBC 9.5 K/mm3 (4.5-11.0) 09/06/21 13:24 RBC 3.76 M/mm3 (3.65-5.03) 09/06/21 13:24 Hgb 11.6 gm/dl (10.1-14.3) 09/06/21 13:24 Hct 35.2 % (30.3-42.9) 09/06/21 13:24 MCV 94 fl (79-97) 09/06/21 13:24 MCH 31 pg (28-32) 09/06/21 13:24 MCHC 33 % (30-34) 09/06/21 13:24 RDW 14.1 % (13.2-15.2) 09/06/21 13:24 Plt Count 210 K/mm3 (140-440) 09/06/21 13:24 Lymph % (Auto) 19.3 % (13.4-35.0) 09/06/21 13:24 [place] % (Auto) 5.2 % (0.0-7.3) 09/06/21 13:24 Eos % (Auto) 1.7 % (0.0-4.3) 09/06/21 13:24 Baso % (Auto) 0.5 % (0.0-1.8) 09/06/21 13:24 Lymph # (Auto) 1.8 K/mm3 (1.2-5.4) 09/06/21 13:24 [place] # (Auto) 0.5 K/mm3 (0.0-0.8) 09/06/21 13:24 Eos # (Auto) 0.2 K/mm3 (0.0-0.4) 09/06/21 13:24 Baso # (Auto) 0.0 K/mm3 (0.0-0.1) 09/06/21 13:24 Seg Neutrophils % 73.3 % (40.0-70.0) H 09/06/21 13:24 Seg Neutrophils # 6.9 K/mm3 (1.8-7.7) 09/06/21 13:24 Sodium 133 mmol/L (137-145) L 09/06/21 13:24 Potassium 4.8 mmol/L (3.6-5.0) 09/06/21 13:24 Chloride 102.4 mmol/L (98-107) 09/06/21 13:24 Carbon Dioxide 20 mmol/L (22-30) L 09/06/21 13:24 Anion Gap 15 mmol/L 09/06/21 13:24 BUN 30 mg/dL (7-17) H 09/06/21 13:24 Creatinine 1.5 mg/dL (0.6-1.2) H 09/06/21 13:24 Estimated GFR 35 ml/min 09/06/21 13:24 BUN/Creatinine Ratio 20 % 09/06/21 13:24 Glucose 156 mg/dL (65-100) H 09/06/21 13:24 POC Glucose 113 mg/dL (70-105) H 09/12/21 07:27 Hemoglobin A1c 6.7 % (4-6) H 09/06/21 13:24 Calcium 9.3 mg/dL (8.4-10.2) 09/06/21 13:24 Total Bilirubin 0.60 mg/dL (0.1-1.2) 09/06/21 13:24 AST 21 units/L (5-40) 09/06/21 13:24 ALT 10 units/L (7-56) 09/06/21 13:24 Alkaline Phosphatase 49 units/L (35-129) 09/06/21 13:24 Total Protein 7.1 g/dL (6.3-8.2) 09/06/21 13:24 Albumin 2.5 g/dL (3.9-5) L 09/06/21 13:24 Albumin/Globulin Ratio 0.5 % 09/06/21 13:24 Triglycerides 118 mg/dL (2-149) 09/06/21 13:24 Cholesterol 178 mg/dL (50-199) 09/06/21 13:24 LDL Cholesterol Direct 105 mg/dL (50-130) 09/06/21 13:24 HDL Cholesterol 60 mg/dL (40-59) H 09/06/21 13:24 Cholesterol/HDL Ratio 2.96 % 09/06/21 13:24 TSH 0.454 mlU/mL (0.270-4.200) 09/06/21 13:24 [place]/IV: Voiding Method Toilet Active Medications - Current Medications Current Medications: Generic Name Dose Route Start Last Admin Trade Name Freq PRN Reason Stop Dose Admin Allopurinol 100 mg 09/06/21 10:00 09/12/21 09:01 Allopurinol 100 Mg Tab PO 100 mg DAILY VANESSA Administration Aripiprazole 5 mg 09/12/21 11:00 09/12/21 11:30 Aripiprazole 5 Mg Tab PO 5 mg QDAY VANESSA Administration Atorvastatin Calcium 20 mg 09/06/21 22:00 09/11/21 21:21 Atorvastatin 20 Mg Tab PO 20 mg HS VANESSA Administration Buspirone HCl 5 mg 09/06/21 10:00 09/12/21 09:01 Buspirone 5 Mg Tab PO 5 mg DAILY VANESSA Administration Cetirizine HCl 10 mg 09/06/21 10:00 09/12/21 09:01 Cetirizine 10 Mg Tab PO 10 mg DAILY VANESSA Administration Divalproex Sodium 125 mg 09/10/21 11:00 09/12/21 09:[address] 125 Mg Tab PO 125 mg BID VANESSA Administration Escitalopram Oxalate 20 mg 09/07/21 10:00 09/12/21 09:01 Escitalopram 10 Mg Tab PO 20 mg QDAY VANESSA Administration Metformin HCl 500 mg 09/07/21 10:00 09/12/21 16:45 Metformin 500 Mg Tab PO 500 mg BIDDIAB VANESSA Administration Nifedipine 30 mg 09/09/21 10:00 09/12/21 09:00 Nifedipine Xl 30 Mg Tab PO 30 mg QDAY VANESSA Administration Trazodone HCl 50 mg 09/06/21 22:00 09/11/21 21:20 Trazodone 50 Mg Tab PO 50 mg QHS VANESSA Administration Ziprasidone 10 mg 09/10/21 11:00 Ziprasidone Mesylate 20 Mg Vial IM Q4H PRN Agitation Nutrition/Malnutrition Assess - Dietary Evaluation Nutrition/Malnutrition Findings: Nutrition Notes Start: 09/08/21 14:14 Freq: Status: Active Protocol: Document 09/12/21 14:58 GUY (Rec: 09/12/21 15:16 GUY [id number]) Nutrition Notes Need for Assessment generated from: LOS Initial or Follow up Assessment Current Diagnosis CKD(stage I-IV),Diabetes, Hypertension,Malnutrition, Hyperlipidemia Other Pertinent Diagnosis Major Depressive Disorder, Delusional Disorder, Allergic Rhinitis, Gout ... Current Diet Cardiac/Consistent Carbohydrates Diet (since ), D Suppl (09/08). Labs/Tests 09/12: N/A, HbA1c 6.7%. Pertinent Medications 09/12: Nutritionally unremarkable. Height 5 ft 10 in Weight 122.47 kg [place] Body Weight (kg) 68.18 BMI 38.7 Weight change and time frame No body weight reported in 4 days. Weight Status Obese Subjective/Other Information RD consult for LOS assessment. Pt's PO intake of meals and ONS has been changing on a daily basis from 0% to 100% depending on Pt's mood and appetite, according to ADL notes. Pt lives with family. Percent of energy/protein needs met: Prescribed Cardiac/Consistent Carbohydrates Diet provides for energy/protein needs (1, 977 Kcal/86 g) during LOS. Burn Absent Trauma Absent GI Symptoms None Food Allergy No Skin Integrity/Comment Assessment WNL. Current % PO Other Minimum of two criteria No #1 Nutrition Diagnosis No nutrition diagnosis at this time Is patient on ventilator? No Is Patient Ambulatory and/or Out of Bed Yes REE-([facility]-ambulatory/OOB) [ 2398.435 [id number]] Kcal/Kg value to use for calculation 17 Approximate Energy Requirements Using 2 kcal/Kg Calculation Used for Recommendations Kcal/kg Additional Notes Protein: 0.6-0.8 g/Kg AdjBW; 57-76 g/day. Fluids: 1 ml/Kcal, or as per MD. Nutrition Intervention Revisit per MD consult or patient Sign Off request: Additional Comments Continue monitoring food tolerance, %PO intake of meals , and BM.
[2021-09-12] MEDS: traZODone 50 MG TAB PO SCH (21:22)
[2021-09-13] MEDS: metFORMIN 500 MG TAB PO SCH ×2 (07:55→16:35)
--- NOTE | 2021-09-13 08:46 | Progress Note ---
Subjective Date of service: 09/13/21 Principal diagnosis: Major Depressive Disorder Subjective Comment: The patient was seen today. She is sitting off to herself. She appears down. The patient says "I'm just here." She verbalizes feeling depressed and suicidal. She denies hallucinations. 09/12 The patient was seen today. She is in the dayroom with her head down. She easily arouses. She says "I'm just here." She verbalizes feeling depressed. I ask the patient why is she depressed, she replies "you know why." The patient says "I don't really want to live." She then says "I don't want to talk about it." 09/11 The patient was seen today. Staff and hospitalist with the patient. The patient's BP was initially low, but has normalized now. The patient was taken to the day room, she is shaking and asking to go back to bed. She is irritable and acting bizarre. I touch her and she shakes vigorously and tells me not to touch her. She says "I don't feel good." I ask the patient why she didn't feel good, she says "put me in my room. That chair is nasty." She refused to answer if she was having hallucinations or feeling suicidal. She says "Shhhhhh, I want to go to my room." 09/10 The patient was seen today. She is lying in bed awake. Her thoughts are disorganized. The patient is acting bizarre. She is staring at the ceiling with her right arm stuck out. She says "my arm is still on the plane." She says "they are smoking on the plane." The patient says "my body is still on this plane. Get out of here." She says "get out of here." The patient then stops talking. 09/09 The patient was seen today. She is sleeping. She is irritable at me waking her up. She tells me to "shhhhhh" to silence me. She verbalizes being depressed. She says "I don't want to talk about it," when asking her was she suicidal. The nurse says the patient was given Geodon prn and it just started to take affect this morning. Nurse note states the patient was agitated, combative and hallucinating. 09/08 The patient was seen today. She is sitting in the dayroom. She is paranoid and delusional. She appears withdrawn. The patient says she is depressed. She then says "I killed my whole family, remember?" I tell the patient that none of that happened. She becomes upset, and says "just don't say nothing else." She refused to speak any further. REVIEW OF SYSTEMS Constitutional: Negative for weight loss ENT: Negative for stridor Respiratory: Negative for cough or hemoptysis All other systems reviewed and are negative MENTAL STATUS EXAMINATION General Appearance and Behavior: Age appropriate, good hygiene, wearing appropriate clothes, good eye contact, calm, cooperative Cooperation: Participating/engaged, but Guarded Psychomotor Behavior: Psychomotor normal Mood: confused Affect and affective range: congruent with stated mood Thought Process: Circumstantial Thought Content: paranoid Speech: normal tone and pace Suicidal Ideation: Denies Homicidal Ideation: Denies Hallucinations: Denies Delusions: None elicited Impulse Control: Limited Insight and Judgment: Limited insight and judgment Memory: Limited Attention: attentive Orientation: Alert, oriented Assessment and Plan Delusional disorder Treatment Plan Patient admitted for inpatient psychiatric evaluation, medication adjustment and close monitoring The patient's behavior, mood, sleep and appetite will be closely monitored. Patient enrolled in individual and group therapeutic sessions and encouraged to attend. Patient provided with a safe and structured environment. Patient's physical health needs will be addressed by the Hospitalist. Hospitalist Consulted Labs including CBC, CMP, Lipid profile and Hemoglobin A1C levels ordered for baseline reference Social Assessment will be completed and the Reproducer will work with patient and family to ensure a suitable and safe disposition Medication adjustment will be made as clinically indicated Start Abilify 5mg po daily yesterday Increase Depakote DR 250mg po BID Usual Wellness Restorationist/Preservation: - Start Trazodone 50 mg po QHS & 50 mg po QHS PRN between 10 PM & 2 AM for insomnia - Start Melatonin 5 mg po QHS to promote circadian rhythm The patient agreed on the treatment plan, understood the risk, benefit, alternative treatment, potential consequence of no treatment, and gave informed consent. Estimated days: 7 Post hospital care: primary care provider, psychiatric provider Case staffed with Dr. Christopher Medications and Allergies Allergies Allergy/AdvReac Type Severity Reaction Status Date / Time No Known Allergies Allergy Unverified 09/05/21 22:34 Home Medications Medication Instructions Recorded Confirmed Last Taken Type AtorvaSTATin [Lipitor] 20 mg PO HS 09/06/21 09/06/21 Unknown History Cetirizine HCl 10 mg PO DAILY 09/06/21 09/06/21 Unknown History Escitalopram [Lexapro] 10 mg PO DAILY 09/06/21 09/06/21 Unknown History Losartan Potassium 100 mg PO DAILY 09/06/21 09/06/21 Unknown History allopurinoL [Zyloprim] 100 mg PO DAILY 09/06/21 09/06/21 Unknown History busPIRone [Buspar] 5 mg PO DAILY 09/06/21 09/06/21 Unknown History cloNIDine [Catapres] 0.1 mg PO BID 09/06/21 09/06/21 Unknown History Active Meds: Active Medications Allopurinol (Allopurinol 100 Mg Tab) 100 mg PO DAILY [facility] Last Admin: 09/12/21 09:01 Dose: 100 mg Aripiprazole (Aripiprazole 5 Mg Tab) 5 mg PO QDAY [facility] Last Admin: 09/12/21 11:30 Dose: 5 mg Atorvastatin Calcium (Atorvastatin 20 Mg Tab) 20 mg PO [facility] Last Admin: 09/12/21 21:22 Dose: 20 mg Buspirone HCl (Buspirone 5 Mg Tab) 5 mg PO DAILY [facility] Last Admin: 09/12/21 09:01 Dose: 5 mg Cetirizine HCl (Cetirizine 10 Mg Tab) 10 mg PO DAILY [facility] Last Admin: 09/12/21 09:01 Dose: 10 mg Divalproex Sodium (Divalproex Dr 125 Mg Tab) 125 mg PO BID [facility] Last Admin: 09/12/21 21:22 Dose: 125 mg Escitalopram Oxalate (Escitalopram 10 Mg Tab) 20 mg PO QDAY [facility] Last Admin: 09/12/21 09:01 Dose: 20 mg Metformin HCl (Metformin 500 Mg Tab) 500 mg PO BIDDIAB [facility] Last Admin: 09/13/21 07:55 Dose: 500 mg Nifedipine (Nifedipine Xl 30 Mg Tab) 30 mg PO QDAY [facility] Last Admin: 09/12/21 09:00 Dose: 30 mg Trazodone HCl (Trazodone 50 Mg Tab) 50 mg PO QHS [facility] Last Admin: 09/12/21 21:22 Dose: 50 mg Ziprasidone (Ziprasidone Mesylate 20 Mg Vial) 10 mg IM Q4H PRN PRN Reason: Agitation Results - Results Labs/Vitals: Laboratory Last Values WBC 9.5 K/mm3 (4.5-11.0) 09/06/21 13:24 RBC 3.76 M/mm3 (3.65-5.03) 09/06/21 13:24 Hgb 11.6 gm/dl (10.1-14.3) 09/06/21 13:24 Hct 35.2 % (30.3-42.9) 09/06/21 13:24 MCV 94 fl (79-97) 09/06/21 13:24 MCH 31 pg (28-32) 09/06/21 13:24 MCHC 33 % (30-34) 09/06/21 13:24 RDW 14.1 % (13.2-15.2) 09/06/21 13:24 Plt Count 210 K/mm3 (140-440) 09/06/21 13:24 Lymph % (Auto) 19.3 % (13.4-35.0) 09/06/21 13:24 [place] % (Auto) 5.2 % (0.0-7.3) 09/06/21 13:24 Eos % (Auto) 1.7 % (0.0-4.3) 09/06/21 13:24 Baso % (Auto) 0.5 % (0.0-1.8) 09/06/21 13:24 Lymph # (Auto) 1.8 K/mm3 (1.2-5.4) 09/06/21 13:24 [place] # (Auto) 0.5 K/mm3 (0.0-0.8) 09/06/21 13:24 Eos # (Auto) 0.2 K/mm3 (0.0-0.4) 09/06/21 13:24 Baso # (Auto) 0.0 K/mm3 (0.0-0.1) 09/06/21 13:24 Seg Neutrophils % 73.3 % (40.0-70.0) H 09/06/21 13:24 Seg Neutrophils # 6.9 K/mm3 (1.8-7.7) 09/06/21 13:24 Sodium 133 mmol/L (137-145) L 09/06/21 13:24 Potassium 4.8 mmol/L (3.6-5.0) 09/06/21 13:24 Chloride 102.4 mmol/L (98-107) 09/06/21 13:24 Carbon Dioxide 20 mmol/L (22-30) L 09/06/21 13:24 Anion Gap 15 mmol/L 09/06/21 13:24 BUN 30 mg/dL (7-17) H 09/06/21 13:24 Creatinine 1.5 mg/dL (0.6-1.2) H 09/06/21 13:24 Estimated GFR 35 ml/min 09/06/21 13:24 BUN/Creatinine Ratio 20 % 09/06/21 13:24 Glucose 156 mg/dL (65-100) H 09/06/21 13:24 POC Glucose 138 mg/dL (70-105) H 09/13/21 06:00 Hemoglobin A1c 6.7 % (4-6) H 09/06/21 13:24 Calcium 9.3 mg/dL (8.4-10.2) 09/06/21 13:24 Total Bilirubin 0.60 mg/dL (0.1-1.2) 09/06/21 13:24 AST 21 units/L (5-40) 09/06/21 13:24 ALT 10 units/L (7-56) 09/06/21 13:24 Alkaline Phosphatase 49 units/L (35-129) 09/06/21 13:24 Total Protein 7.1 g/dL (6.3-8.2) 09/06/21 13:24 Albumin 2.5 g/dL (3.9-5) L 09/06/21 13:24 Albumin/Globulin Ratio 0.5 % 09/06/21 13:24 Triglycerides 118 mg/dL (2-149) 09/06/21 13:24 Cholesterol 178 mg/dL (50-199) 09/06/21 13:24 LDL Cholesterol Direct 105 mg/dL (50-130) 09/06/21 13:24 HDL Cholesterol 60 mg/dL (40-59) H 09/06/21 13:24 Cholesterol/HDL Ratio 2.96 % 09/06/21 13:24 TSH 0.454 mlU/mL (0.270-4.200) 09/06/21 13:24 Last Vital Signs Temp 98.6 F 09/12/21 19:51 Pulse 96 H 09/12/21 19:51 Resp 18 09/12/21 19:51 BP 110/55 09/12/21 19:51 Pulse Ox 96 09/12/21 19:51
[2021-09-13] MEDS: busPIRone 5 MG TAB PO SCH (09:25)
[2021-09-13] MEDS: DIVALPROEX DR 250 MG TAB PO SCH ×2 (09:26→21:08)
[2021-09-13] MEDS: allopurinoL 100 MG TAB PO SCH (09:26)
[2021-09-13] MEDS: CETIRIZINE 10 MG TAB PO SCH (09:26)
[2021-09-13] MEDS: ESCITALOPRAM 10 MG TAB PO SCH (09:26)
[2021-09-13] MEDS: ARIPiprazole 5 MG TAB PO SCH (09:26)
[2021-09-13] MEDS: NIFEdipine XL 30 MG TAB PO SCH (09:37)
[2021-09-13] MEDS: traZODone 50 MG TAB PO SCH (21:08)
--- NOTE | 2021-09-14 08:55 | Progress Note ---
Subjective Date of service: 09/14/21 Principal diagnosis: Major Depressive Disorder Subjective Comment: 09/14/21: The patient was seen today. She presents with flat affect; the patient continues to endorse depression rates as 03/11. She reports suicidal ideation with no plan " I wish somebody can do it for me and get it over with." She endorses hallucinations "voices saying I killed my family." 09/13/21:The patient was seen today. She is sitting off to herself. She appears down. The patient says "I'm just here." She verbalizes feeling depressed and suicidal. She denies hallucinations. 09/12 The patient was seen today. She is in the dayroom with her head down. She easily arouses. She says "I'm just here." She verbalizes feeling depressed. I ask the patient why is she depressed, she replies "you know why." The patient says "I don't really want to live." She then says "I don't want to talk about it." 09/11 The patient was seen today. Staff and hospitalist with the patient. The patient's BP was initially low, but has normalized now. The patient was taken to the day room, she is shaking and asking to go back to bed. She is irritable and acting bizarre. I touch her and she shakes vigorously and tells me not to touch her. She says "I don't feel good." I ask the patient why she didn't feel good, she says "put me in my room. That chair is nasty." She refused to answer if she was having hallucinations or feeling suicidal. She says [facility]." 09/10 The patient was seen today. She is lying in bed awake. Her thoughts are disorganized. The patient is acting bizarre. She is staring at the ceiling with her right arm stuck out. She says "my arm is still on the plane." She says "they are smoking on the plane." The patient says "my body is still on this plane. Get out of here." She says "get out of here." The patient then stops talking. 09/09 The patient was seen today. She is sleeping. She is irritable at me waking her up. [facility] to [facility] me. She verbalizes being depressed. She says "I don't want to talk about it," when asking her was she suicidal. The nurse says the patient was given Geodon prn and it just started to take affect this morning. Nurse note states the patient was agitated, combative and hallucinating. 09/08 The patient was seen today. She is sitting in the dayroom. She is paranoid and delusional. She appears withdrawn. The patient says she is depressed. She then says "I killed my whole family, remember?" I tell the patient that none of that happened. She becomes upset, and says "just don't say nothing else." She refused to speak any further. REVIEW OF SYSTEMS Constitutional: Negative for weight loss ENT: Negative for stridor Respiratory: Negative for cough or hemoptysis All other systems reviewed and are negative MENTAL STATUS EXAMINATION General Appearance and Behavior: Age appropriate, good hygiene, wearing appropriate clothes, good eye contact, calm, cooperative Cooperation: Participating/engaged, but Guarded Psychomotor Behavior: Psychomotor normal Mood:Depressed Affect and affective range: Flat Thought Process: Circumstantial Thought Content: paranoid/hallucinations Speech: normal tone and pace Suicidal Ideation: Yes Homicidal Ideation: Denies Hallucinations: Yes Delusions: None elicited Impulse Control: Limited Insight and Judgment: Limited insight and judgment Memory: Limited Attention: attentive Orientation: Alert, oriented Assessment and Plan Delusional disorder Treatment Plan Patient admitted for inpatient psychiatric evaluation, medication adjustment and close monitoring The patient's behavior, mood, sleep and appetite will be closely monitored. Patient enrolled in individual and group therapeutic sessions and encouraged to attend. Patient provided with a safe and structured environment. Patient's physical health needs will be addressed by the Hospitalist. Hospitalist Consulted Labs including CBC, CMP, Lipid profile and Hemoglobin A1C levels ordered for baseline reference Social Assessment will be completed and the Director Style will work with patient and family to ensure a suitable and safe disposition Medication adjustment will be made as clinically indicated Continue Abilify 5mg po daily Continue Depakote DR 250mg po BID Usual Wellness Orthodoxy/Preservation: - Start Trazodone 50 mg po QHS & 50 mg po QHS PRN between 10 PM & 2 AM for insomnia - Start Melatonin 5 mg po QHS to promote circadian rhythm The patient agreed on the treatment plan, understood the risk, benefit, alternative treatment, potential consequence of no treatment, and gave informed consent. Estimated days: 0 Post hospital care: primary care provider, psychiatric provider Case staffed with Dr. Christopher Medications and Allergies Medications and Allergies Allergies Allergy/AdvReac Type Severity Reaction Status Date / Time No Known Allergies Allergy Unverified 09/05/21 22:34 Home Medications Medication Instructions Recorded Confirmed Last Taken Type AtorvaSTATin [Lipitor] 20 mg PO HS 09/06/21 09/06/21 Unknown History Cetirizine HCl 10 mg PO DAILY 09/06/21 09/06/21 Unknown History Escitalopram [Lexapro] 10 mg PO DAILY 09/06/21 09/06/21 Unknown History Losartan Potassium 100 mg PO DAILY 09/06/21 09/06/21 Unknown History allopurinoL [Zyloprim] 100 mg PO DAILY 09/06/21 09/06/21 Unknown History busPIRone [Buspar] 5 mg PO DAILY 09/06/21 09/06/21 Unknown History cloNIDine [Catapres] 0.1 mg PO BID 09/06/21 09/06/21 Unknown History Active Meds: Active Medications Allopurinol (Allopurinol 100 Mg Tab) 100 mg PO DAILY [facility] Last Admin: 09/13/21 09:26 Dose: 100 mg Aripiprazole (Aripiprazole 5 Mg Tab) 5 mg PO QDAY [facility] Last Admin: 09/13/21 09:26 Dose: 5 mg Atorvastatin Calcium (Atorvastatin 20 Mg Tab) 20 mg PO [facility] Last Admin: 09/13/21 21:08 Dose: 20 mg Buspirone HCl (Buspirone 5 Mg Tab) 5 mg PO DAILY [facility] Last Admin: 09/13/21 09:25 Dose: 5 mg Cetirizine HCl (Cetirizine 10 Mg Tab) 10 mg PO DAILY [facility] Last Admin: 09/13/21 09:26 Dose: 10 mg Divalproex Sodium (Divalproex Dr 250 Mg Tab) 250 mg PO BID [facility] Last Admin: 09/13/21 21:08 Dose: 250 mg Escitalopram Oxalate (Escitalopram 10 Mg Tab) 20 mg PO QDAY [facility] Last Admin: 09/13/21 09:26 Dose: 20 mg Metformin HCl (Metformin 500 Mg Tab) 500 mg PO BIDDIAB [facility] Last Admin: 09/13/21 16:35 Dose: 500 mg Nifedipine (Nifedipine Xl 30 Mg Tab) 30 mg PO QDAY [facility] Last Admin: 09/13/21 09:37 Dose: 30 mg Trazodone HCl (Trazodone 50 Mg Tab) 50 mg PO QHS [facility] Last Admin: 09/13/21 21:08 Dose: 50 mg Ziprasidone (Ziprasidone Mesylate 20 Mg Vial) 10 mg IM Q4H PRN PRN Reason: Agitation Results - Results Labs/Vitals: Laboratory Last Values WBC 9.5 K/mm3 (4.5-11.0) 09/06/21 13:24 RBC 3.76 M/mm3 (3.65-5.03) 09/06/21 13:24 Hgb 11.6 gm/dl (10.1-14.3) 09/06/21 13:24 Hct 35.2 % (30.3-42.9) 09/06/21 13:24 MCV 94 fl (79-97) 09/06/21 13:24 MCH 31 pg (28-32) 09/06/21 13:24 MCHC 33 % (30-34) 09/06/21 13:24 RDW 14.1 % (13.2-15.2) 09/06/21 13:24 Plt Count 210 K/mm3 (140-440) 09/06/21 13:24 Lymph % (Auto) 19.3 % (13.4-35.0) 09/06/21 13:24 [place] % (Auto) 5.2 % (0.0-7.3) 09/06/21 13:24 Eos % (Auto) 1.7 % (0.0-4.3) 09/06/21 13:24 Baso % (Auto) 0.5 % (0.0-1.8) 09/06/21 13:24 Lymph # (Auto) 1.8 K/mm3 (1.2-5.4) 09/06/21 13:24 [place] # (Auto) 0.5 K/mm3 (0.0-0.8) 09/06/21 13:24 Eos # (Auto) 0.2 K/mm3 (0.0-0.4) 09/06/21 13:24 Baso # (Auto) 0.0 K/mm3 (0.0-0.1) 09/06/21 13:24 Seg Neutrophils % 73.3 % (40.0-70.0) H 09/06/21 13:24 Seg Neutrophils # 6.9 K/mm3 (1.8-7.7) 09/06/21 13:24 Sodium 133 mmol/L (137-145) L 09/06/21 13:24 Potassium 4.8 mmol/L (3.6-5.0) 09/06/21 13:24 Chloride 102.4 mmol/L (98-107) 09/06/21 13:24 Carbon Dioxide 20 mmol/L (22-30) L 09/06/21 13:24 Anion Gap 15 mmol/L 09/06/21 13:24 BUN 30 mg/dL (7-17) H 09/06/21 13:24 Creatinine 1.5 mg/dL (0.6-1.2) H 09/06/21 13:24 Estimated GFR 35 ml/min 09/06/21 13:24 BUN/Creatinine Ratio 20 % 09/06/21 13:24 Glucose 156 mg/dL (65-100) H 09/06/21 13:24 POC Glucose 138 mg/dL (70-105) H 09/13/21 06:00 Hemoglobin A1c 6.7 % (4-6) H 09/06/21 13:24 Calcium 9.3 mg/dL (8.4-10.2) 09/06/21 13:24 Total Bilirubin 0.60 mg/dL (0.1-1.2) 09/06/21 13:24 AST 21 units/L (5-40) 09/06/21 13:24 ALT 10 units/L (7-56) 09/06/21 13:24 Alkaline Phosphatase 49 units/L (35-129) 09/06/21 13:24 Total Protein 7.1 g/dL (6.3-8.2) 09/06/21 13:24 Albumin 2.5 g/dL (3.9-5) L 09/06/21 13:24 Albumin/Globulin Ratio 0.5 % 09/06/21 13:24 Triglycerides 118 mg/dL (2-149) 09/06/21 13:24 Cholesterol 178 mg/dL (50-199) 09/06/21 13:24 LDL Cholesterol Direct 105 mg/dL (50-130) 09/06/21 13:24 HDL Cholesterol 60 mg/dL (40-59) H 09/06/21 13:24 Cholesterol/HDL Ratio 2.96 % 09/06/21 13:24 TSH 0.454 mlU/mL (0.270-4.200) 09/06/21 13:24 Last Vital Signs Temp 98.5 F 09/13/21 19:41 Pulse 80 09/13/21 19:41 Resp 17 09/13/21 19:41 BP 129/60 09/13/21 19:41 Pulse Ox 95 09/13/21 19:41
[2021-09-14] MEDS: DIVALPROEX DR 250 MG TAB PO SCH ×2 (09:34→21:54)
[2021-09-14] MEDS: ESCITALOPRAM 10 MG TAB PO SCH (09:34)
[2021-09-14] MEDS: busPIRone 5 MG TAB PO SCH (09:34)
[2021-09-14] MEDS: ARIPiprazole 5 MG TAB PO SCH (09:34)
[2021-09-14] MEDS: CETIRIZINE 10 MG TAB PO SCH (09:35)
[2021-09-14] MEDS: allopurinoL 100 MG TAB PO SCH (09:35)
[2021-09-14] MEDS: metFORMIN 500 MG TAB PO SCH ×2 (09:35→18:44)
[2021-09-14] MEDS: NIFEdipine XL 30 MG TAB PO SCH (09:35)
--- NOTE | 2021-09-14 20:30 | Progress Note ---
Assessment and Plan - Patient Problems (1) Vascular dementia with behavioral disturbance Current Visit: Yes Status: Acute Plan to address problem: Verbal prompting, verbal redirection, benzodiazepine therapy as clinically indicated. (2) Cerebral atherosclerosis Current Visit: Yes Status: Acute Plan to address problem: Risk factor reduction, antiplatelet therapy as clinically indicated. (3) Obesity hypoventilation syndrome Current Visit: Yes Status: Acute Plan to address problem: Balanced diet, increase physical activity discharge, outpatient pulmonary fo llow-up for sleep study. (4) Acute psychosis Current Visit: Yes Status: Acute Plan to address problem: Supportive care, continue medical management (5) Hypertension Current Visit: Yes Status: Acute Qualifiers: Hypertension type: primary hypertension Qualified Code(s): I10 - Essential (primary) hypertension Plan to address problem: Monitor blood pressure every shift, continue medical management (6) Hyperlipidemia Current Visit: Yes Status: Acute Qualifiers: Hyperlipidemia type: mixed hyperlipidemia Qualified Code(s): E78.2 - Mixed hyperlipidemia Plan to address problem: Low-cholesterol diet, supportive care, (7) Seasonal allergies Current Visit: Yes Status: Acute Plan to address problem: Continue oral antihistamine therapy as clinically indicated. (8) Advance care planning Current Visit: Yes Status: Acute Plan to address problem: Disease education conducted, care plan discussed, diagnoses discussed, prognosis discussed, patient is full code. Patient acknowledges understanding and agreeme nt with care plan, +30 minutes. History Interval history: 65 YO Female with Vascular Dementia with Behavioral Disturbance, Cerebral Atherosclerosis, HTN, HLD, Gout, Seasonal Allergies, Acute Psychosis admitted to [facility] for psychiatric stabilization. Consult placed with Dr. Pulido for medical management. Patient seen and evaluated in the recreation room. Patient resting comfortably. No reported nursing events. Patient denies pain. Patient is at baseline level of cognition and function. Hospitalist Physical - Constitutional Vitals: Temp Pulse Resp BP Pulse Ox 98.3 F 87 20 116/52 94 09/14/21 09:44 09/14/21 09:44 09/14/21 09:44 09/14/21 09:44 09/14/21 09:44 General appearance: Present: no acute distress, well-nourished, obese - EENT Eyes: Present: PERRL ENT: hearing intact - Neck Neck: Present: supple - Respiratory Respiratory effort: normal Respiratory: bilateral: CTA - Cardiovascular Rhythm: regular Heart Sounds: Present: S1 & S2 - Extremities Extremities: no ischemia Peripheral Pulses: within normal limits - Abdominal General gastrointestinal: soft, non-tender, non-distended - Integumentary Integumentary: Present: clear, dry - Psychiatric Psychiatric: cooperative - Neurologic Neurologic: CNII-XII intact Results - Labs CBC & Chem 7: 09/06/21 13:24 09/06/21 13:24 Labs: Laboratory Last Values WBC 9.5 K/mm3 (4.5-11.0) 09/06/21 13:24 RBC 3.76 M/mm3 (3.65-5.03) 09/06/21 13:24 Hgb 11.6 gm/dl (10.1-14.3) 09/06/21 13:24 Hct 35.2 % (30.3-42.9) 09/06/21 13:24 MCV 94 fl (79-97) 09/06/21 13:24 MCH 31 pg (28-32) 09/06/21 13:24 MCHC 33 % (30-34) 09/06/21 13:24 RDW 14.1 % (13.2-15.2) 09/06/21 13:24 Plt Count 210 K/mm3 (140-440) 09/06/21 13:24 Lymph % (Auto) 19.3 % (13.4-35.0) 09/06/21 13:24 [place] % (Auto) 5.2 % (0.0-7.3) 09/06/21 13:24 Eos % (Auto) 1.7 % (0.0-4.3) 09/06/21 13:24 Baso % (Auto) 0.5 % (0.0-1.8) 09/06/21 13:24 Lymph # (Auto) 1.8 K/mm3 (1.2-5.4) 09/06/21 13:24 [place] # (Auto) 0.5 K/mm3 (0.0-0.8) 09/06/21 13:24 Eos # (Auto) 0.2 K/mm3 (0.0-0.4) 09/06/21 13:24 Baso # (Auto) 0.0 K/mm3 (0.0-0.1) 09/06/21 13:24 Seg Neutrophils % 73.3 % (40.0-70.0) H 09/06/21 13:24 Seg Neutrophils # 6.9 K/mm3 (1.8-7.7) 09/06/21 13:24 Sodium 133 mmol/L (137-145) L 09/06/21 13:24 Potassium 4.8 mmol/L (3.6-5.0) 09/06/21 13:24 Chloride 102.4 mmol/L (98-107) 09/06/21 13:24 Carbon Dioxide 20 mmol/L (22-30) L 09/06/21 13:24 Anion Gap 15 mmol/L 09/06/21 13:24 BUN 30 mg/dL (7-17) H 09/06/21 13:24 Creatinine 1.5 mg/dL (0.6-1.2) H 09/06/21 13:24 Estimated GFR 35 ml/min 09/06/21 13:24 BUN/Creatinine Ratio 20 % 09/06/21 13:24 Glucose 156 mg/dL (65-100) H 09/06/21 13:24 POC Glucose 138 mg/dL (70-105) H 09/13/21 06:00 Hemoglobin A1c 6.7 % (4-6) H 09/06/21 13:24 Calcium 9.3 mg/dL (8.4-10.2) 09/06/21 13:24 Total Bilirubin 0.60 mg/dL (0.1-1.2) 09/06/21 13:24 AST 21 units/L (5-40) 09/06/21 13:24 ALT 10 units/L (7-56) 09/06/21 13:24 Alkaline Phosphatase 49 units/L (35-129) 09/06/21 13:24 Total Protein 7.1 g/dL (6.3-8.2) 09/06/21 13:24 Albumin 2.5 g/dL (3.9-5) L 09/06/21 13:24 Albumin/Globulin Ratio 0.5 % 09/06/21 13:24 Triglycerides 118 mg/dL (2-149) 09/06/21 13:24 Cholesterol 178 mg/dL (50-199) 09/06/21 13:24 LDL Cholesterol Direct 105 mg/dL (50-130) 09/06/21 13:24 HDL Cholesterol 60 mg/dL (40-59) H 09/06/21 13:24 Cholesterol/HDL Ratio 2.96 % 09/06/21 13:24 TSH 0.454 mlU/mL (0.270-4.200) 09/06/21 13:24 [place]/IV: Voiding Method Toilet Active Medications - Current Medications Current Medications: Generic Name Dose Route Start Last Admin Trade Name Freq PRN Reason Stop Dose Admin Allopurinol 100 mg 09/06/21 10:00 09/14/21 09:35 Allopurinol 100 Mg Tab PO 100 mg DAILY VANESSA Administration Aripiprazole 5 mg 09/12/21 11:00 09/14/21 09:34 Aripiprazole 5 Mg Tab PO 5 mg QDAY VANESSA Administration Atorvastatin Calcium 20 mg 09/06/21 22:00 09/13/21 21:08 Atorvastatin 20 Mg Tab PO 20 mg HS VANESSA Administration Buspirone HCl 5 mg 09/06/21 10:00 09/14/21 09:34 Buspirone 5 Mg Tab PO 5 mg DAILY VANESSA Administration Cetirizine HCl 10 mg 09/06/21 10:00 09/14/21 09:35 Cetirizine 10 Mg Tab PO 10 mg DAILY VANESSA Administration Divalproex Sodium 250 mg 09/13/21 10:00 09/14/21 09:[address] 250 Mg Tab PO 250 mg BID VANESSA Administration Escitalopram Oxalate 20 mg 09/07/21 10:00 09/14/21 09:34 Escitalopram 10 Mg Tab PO 20 mg QDAY VANESSA Administration Metformin HCl 500 mg 09/07/21 10:00 09/14/21 18:44 Metformin 500 Mg Tab PO 500 mg BIDDIAB VANESSA Administration Nifedipine 30 mg 09/09/21 10:00 09/14/21 09:35 Nifedipine Xl 30 Mg Tab PO 30 mg QDAY VANESSA Administration Trazodone HCl 50 mg 09/06/21 22:00 09/13/21 21:08 Trazodone 50 Mg Tab PO 50 mg QHS VANESSA Administration Ziprasidone 10 mg 09/10/21 11:00 Ziprasidone Mesylate 20 Mg Vial IM Q4H PRN Agitation Nutrition/Malnutrition Assess - Dietary Evaluation Nutrition/Malnutrition Findings: Nutrition Notes Start: 09/08/21 14:14 Freq: Status: Active Protocol: Document 09/12/21 14:58 GUY (Rec: 09/12/21 15:16 GUY [id number]) Nutrition Notes Need for Assessment generated from: LOS Initial or Follow up Assessment Current Diagnosis CKD(stage I-IV),Diabetes, Hypertension,Malnutrition, Hyperlipidemia Other Pertinent Diagnosis Major Depressive Disorder, Delusional Disorder, Allergic Rhinitis, Gout ... Current Diet Cardiac/Consistent Carbohydrates Diet (since ), D Suppl (09/08). Labs/Tests 09/12: N/A, HbA1c 6.7%. Pertinent Medications 09/12: Nutritionally unremarkable. Height 5 ft 10 in Weight 122.47 kg [place] Body Weight (kg) 68.18 BMI 38.7 Weight change and time frame No body weight reported in 4 days. Weight Status Obese Subjective/Other Information RD consult for LOS assessment. Pt's PO intake of meals and ONS has been changing on a daily basis from 0% to 100% depending on Pt's mood and appetite, according to ADL notes. Pt lives with family. Percent of energy/protein needs met: Prescribed Cardiac/Consistent Carbohydrates Diet provides for energy/protein needs (1, 977 Kcal/86 g) during LOS. Burn Absent Trauma Absent GI Symptoms None Food Allergy No Skin Integrity/Comment Assessment WNL. Current % PO Other Minimum of two criteria No #1 Nutrition Diagnosis No nutrition diagnosis at this time Is patient on ventilator? No Is Patient Ambulatory and/or Out of Bed Yes REE-([facility]-ambulatory/OOB) [ [id number] [id number]] Kcal/Kg value to use for calculation 17 Approximate Energy Requirements Using 2 kcal/Kg Calculation Used for Recommendations Kcal/kg Additional Notes Protein: 0.6-0.8 g/Kg AdjBW; 57-76 g/day. Fluids: 1 ml/Kcal, or as per MD. Nutrition Intervention Revisit per MD consult or patient Sign Off request: Additional Comments Continue monitoring food tolerance, %PO intake of meals , and BM.
[2021-09-14] MEDS: traZODone 50 MG TAB PO SCH (21:54)
--- NOTE | 2021-09-15 08:46 | Progress Note ---
Subjective Date of service: 09/15/21 Principal diagnosis: Major Depressive Disorder Subjective Comment: 09/15/21:The patient was seen today.The patient states she is feeling better. " I did not kill my family right? then I'm good." She denies any current suicidal/homicidal ideation and denies hallucinations. 09/14/21: The patient was seen today. She presents with flat affect; the patient continues to endorse depression rates as 10/10. She reports suicidal ideation w ith no plan " I wish somebody can do it for me and get it over with." She endorses hallucinations "voices saying I killed my family." 09/13/21:The patient was seen today. She is sitting off to herself. She appears down. The patient says "I'm just here." She verbalizes feeling depressed and suicidal. She denies hallucinations. 09/12 The patient was seen today. She is in the dayroom with her head down. She easily arouses. She says "I'm just here." She verbalizes feeling depressed. I ask the patient why is she depressed, she replies "you know why." The patient says "I don't really want to live." She then says "I don't want to talk about it." 09/11 The patient was seen today. Staff and hospitalist with the patient. The patient's BP was initially low, but has normalized now. The patient was taken to the day room, she is shaking and asking to go back to bed. She is irritable and acting bizarre. I touch her and she shakes vigorously and tells me not to touch her. She says "I don't feel good." I ask the patient why she didn't feel good, she says "put me in my room. That chair is nasty." She refused to answer if she was having hallucinations or feeling suicidal. [facility] 09/10 The patient was seen today. She is lying in bed awake. Her thoughts are disorganized. The patient is acting bizarre. She is staring at the ceiling with her right arm stuck out. She says "my arm is still on the plane." She says "they are smoking on the plane." The patient says "my body is still on this plane. Get out of here." She says "get out of here." The patient then stops talking. 09/09 The patient was seen today. She is sleeping. She is irritable at me waking her up. She tells me to "shhhhhh" to silence me. She verbalizes being depressed. She says "I don't want to talk about it," when asking her was she suicidal. The nurse says the patient was given Geodon prn and it just started to take affect this morning. Nurse note states the patient was agitated, combative and hallucinating. 09/08 The patient was seen today. She is sitting in the dayroom. She is paranoid and delusional. She appears withdrawn. The patient says she is depressed. She then says "I killed my whole family, remember?" I tell the patient that none of that happened. She becomes upset, and says "just don't say nothing else." She refused to speak any further. REVIEW OF SYSTEMS Constitutional: Negative for weight loss ENT: Negative for stridor Respiratory: Negative for cough or hemoptysis All other systems reviewed and are negative MENTAL STATUS EXAMINATION General Appearance and Behavior: Age appropriate, good hygiene, wearing appropriate clothes, good eye contact, calm, cooperative Cooperation: Participating/engaged, but Guarded Psychomotor Behavior: Psychomotor normal Mood:Depressed Affect and affective range: Flat Thought Process: Circumstantial Thought Content: paranoid Speech: normal tone and pace Suicidal Ideation: Denies Homicidal Ideation: Denies Hallucinations: Denies Delusions: None elicited Impulse Control: Limited Insight and Judgment: Limited insight and judgment Memory: Limited Attention: attentive Orientation: Alert, oriented Assessment and Plan Delusional disorder Treatment Plan Patient admitted for inpatient psychiatric evaluation, medication adjustment and close monitoring The patient's behavior, mood, sleep and appetite will be closely monitored. Patient enrolled in individual and group therapeutic sessions and encouraged to attend. Patient provided with a safe and structured environment. Patient's physical health needs will be addressed by the Hospitalist. Hospitalist Consulted Labs including CBC, CMP, Lipid profile and Hemoglobin A1C levels ordered for baseline reference Social Assessment will be completed and the Motor Overhauler will work with patient and family to ensure a suitable and safe disposition Medication adjustment will be made as clinically indicated Continue Abilify 5mg po daily Continue Depakote DR 250mg po BID Usual Wellness Yazidism/Preservation: - Start Trazodone 50 mg po QHS & 50 mg po QHS PRN between 10 PM & 2 AM for insomnia - Start Melatonin 5 mg po QHS to promote circadian rhythm The patient agreed on the treatment plan, understood the risk, benefit, alternative treatment, potential consequence of no treatment, and gave informed consent. Estimated days: 0 Post hospital care: primary care provider, psychiatric provider Case staffed with Dr. Christopher Medications and Allergies Medications and Allergies Allergies Allergy/AdvReac Type Severity Reaction Status Date / Time No Known Allergies Allergy Unverified 09/05/21 22:34 Home Medications Medication Instructions Recorded Confirmed Last Taken Type AtorvaSTATin [Lipitor] 20 mg PO HS 09/06/21 09/06/21 Unknown History Cetirizine HCl 10 mg PO DAILY 09/06/21 09/06/21 Unknown History Escitalopram [Lexapro] 10 mg PO DAILY 09/06/21 09/06/21 Unknown History Losartan Potassium 100 mg PO DAILY 09/06/21 09/06/21 Unknown History allopurinoL [Zyloprim] 100 mg PO DAILY 09/06/21 09/06/21 Unknown History busPIRone [Buspar] 5 mg PO DAILY 09/06/21 09/06/21 Unknown History cloNIDine [Catapres] 0.1 mg PO BID 09/06/21 09/06/21 Unknown History Active Meds: Active Medications Allopurinol (Allopurinol 100 Mg Tab) 100 mg PO DAILY [facility] Last Admin: 09/14/21 09:35 Dose: 100 mg Aripiprazole (Aripiprazole 5 Mg Tab) 5 mg PO QDAY [facility] Last Admin: 09/14/21 09:34 Dose: 5 mg Atorvastatin Calcium (Atorvastatin 20 Mg Tab) 20 mg PO HS [facility] Last Admin: 09/14/21 21:54 Dose: 20 mg Buspirone HCl (Buspirone 5 Mg Tab) 5 mg PO DAILY [facility] Last Admin: 09/14/21 09:34 Dose: 5 mg Cetirizine HCl (Cetirizine 10 Mg Tab) 10 mg PO DAILY [facility] Last Admin: 09/14/21 09:35 Dose: 10 mg Divalproex Sodium (Divalproex Dr 250 Mg Tab) 250 mg PO BID [facility] Last Admin: 09/14/21 21:54 Dose: 250 mg Escitalopram Oxalate (Escitalopram 10 Mg Tab) 20 mg PO QDAY [facility] Last Admin: 09/14/21 09:34 Dose: 20 mg Metformin HCl (Metformin 500 Mg Tab) 500 mg PO BIDDIAB [facility] Last Admin: 09/14/21 18:44 Dose: 500 mg Nifedipine (Nifedipine Xl 30 Mg Tab) 30 mg PO QDAY [facility] Last Admin: 09/14/21 09:35 Dose: 30 mg Trazodone HCl (Trazodone 50 Mg Tab) 50 mg PO QHS [facility] Last Admin: 09/14/21 21:54 Dose: 50 mg Ziprasidone (Ziprasidone Mesylate 20 Mg Vial) 10 mg IM Q4H PRN PRN Reason: Agitation Results - Results Labs/Vitals: Laboratory Last Values WBC 9.5 K/mm3 (4.5-11.0) 09/06/21 13:24 RBC 3.76 M/mm3 (3.65-5.03) 09/06/21 13:24 Hgb 11.6 gm/dl (10.1-14.3) 09/06/21 13:24 Hct 35.2 % (30.3-42.9) 09/06/21 13:24 MCV 94 fl (79-97) 09/06/21 13:24 MCH 31 pg (28-32) 09/06/21 13:24 MCHC 33 % (30-34) 09/06/21 13:24 RDW 14.1 % (13.2-15.2) 09/06/21 13:24 Plt Count 210 K/mm3 (140-440) 09/06/21 13:24 Lymph % (Auto) 19.3 % (13.4-35.0) 09/06/21 13:24 [place] % (Auto) 5.2 % (0.0-7.3) 09/06/21 13:24 Eos % (Auto) 1.7 % (0.0-4.3) 09/06/21 13:24 Baso % (Auto) 0.5 % (0.0-1.8) 09/06/21 13:24 Lymph # (Auto) 1.8 K/mm3 (1.2-5.4) 09/06/21 13:24 [place] # (Auto) 0.5 K/mm3 (0.0-0.8) 09/06/21 13:24 Eos # (Auto) 0.2 K/mm3 (0.0-0.4) 09/06/21 13:24 Baso # (Auto) 0.0 K/mm3 (0.0-0.1) 09/06/21 13:24 Seg Neutrophils % 73.3 % (40.0-70.0) H 09/06/21 13:24 Seg Neutrophils # 6.9 K/mm3 (1.8-7.7) 09/06/21 13:24 Sodium 133 mmol/L (137-145) L 09/06/21 13:24 Potassium 4.8 mmol/L (3.6-5.0) 09/06/21 13:24 Chloride 102.4 mmol/L (98-107) 09/06/21 13:24 Carbon Dioxide 20 mmol/L (22-30) L 09/06/21 13:24 Anion Gap 15 mmol/L 09/06/21 13:24 BUN 30 mg/dL (7-17) H 09/06/21 13:24 Creatinine 1.5 mg/dL (0.6-1.2) H 09/06/21 13:24 Estimated GFR 35 ml/min 09/06/21 13:24 BUN/Creatinine Ratio 20 % 09/06/21 13:24 Glucose 156 mg/dL (65-100) H 09/06/21 13:24 POC Glucose 112 mg/dL (70-105) H 09/15/21 06:27 Hemoglobin A1c 6.7 % (4-6) H 09/06/21 13:24 Calcium 9.3 mg/dL (8.4-10.2) 09/06/21 13:24 Total Bilirubin 0.60 mg/dL (0.1-1.2) 09/06/21 13:24 AST 21 units/L (5-40) 09/06/21 13:24 ALT 10 units/L (7-56) 09/06/21 13:24 Alkaline Phosphatase 49 units/L (35-129) 09/06/21 13:24 Total Protein 7.1 g/dL (6.3-8.2) 09/06/21 13:24 Albumin 2.5 g/dL (3.9-5) L 09/06/21 13:24 Albumin/Globulin Ratio 0.5 % 09/06/21 13:24 Triglycerides 118 mg/dL (2-149) 09/06/21 13:24 Cholesterol 178 mg/dL (50-199) 09/06/21 13:24 LDL Cholesterol Direct 105 mg/dL (50-130) 09/06/21 13:24 HDL Cholesterol 60 mg/dL (40-59) H 09/06/21 13:24 Cholesterol/HDL Ratio 2.96 % 09/06/21 13:24 TSH 0.454 mlU/mL (0.270-4.200) 09/06/21 13:24 Last Vital Signs Temp 98.3 F 09/14/21 19:49 Pulse 82 09/14/21 19:49 Resp 17 09/14/21 19:49 BP 136/69 09/14/21 19:49 Pulse Ox 94 09/14/21 19:49
[2021-09-15] MEDS: DIVALPROEX DR 250 MG TAB PO SCH ×2 (09:29→21:11)
[2021-09-15] MEDS: CETIRIZINE 10 MG TAB PO SCH (09:29)
[2021-09-15] MEDS: NIFEdipine XL 30 MG TAB PO SCH (09:29)
[2021-09-15] MEDS: busPIRone 5 MG TAB PO SCH (09:29)
[2021-09-15] MEDS: ESCITALOPRAM 10 MG TAB PO SCH (09:29)
[2021-09-15] MEDS: ARIPiprazole 5 MG TAB PO SCH (09:30)
[2021-09-15] MEDS: metFORMIN 500 MG TAB PO SCH ×2 (09:30→17:09)
[2021-09-15] MEDS: allopurinoL 100 MG TAB PO SCH (09:30)
--- NOTE | 2021-09-15 14:45 | Progress Note ---
Assessment and Plan - Patient Problems (1) Vascular dementia with behavioral disturbance Current Visit: Yes Status: Acute Plan to address problem: Verbal prompting, verbal redirection, benzodiazepine therapy as clinically indicated. (2) Cerebral atherosclerosis Current Visit: Yes Status: Acute Plan to address problem: Risk factor reduction, antiplatelet therapy as clinically indicated. (3) Obesity hypoventilation syndrome Current Visit: Yes Status: Acute Plan to address problem: Balanced diet, increase physical activity discharge, outpatient pulmonary fo llow-up for sleep study. (4) Acute psychosis Current Visit: Yes Status: Acute Plan to address problem: Supportive care, continue medical management (5) Hypertension Current Visit: Yes Status: Acute Qualifiers: Hypertension type: primary hypertension Qualified Code(s): I10 - Essential (primary) hypertension Plan to address problem: Monitor blood pressure every shift, continue medical management (6) Hyperlipidemia Current Visit: Yes Status: Acute Qualifiers: Hyperlipidemia type: mixed hyperlipidemia Qualified Code(s): E78.2 - Mixed hyperlipidemia Plan to address problem: Low-cholesterol diet, supportive care, (7) Seasonal allergies Current Visit: Yes Status: Acute Plan to address problem: Continue oral antihistamine therapy as clinically indicated. (8) Advance care planning Current Visit: Yes Status: Acute Plan to address problem: Disease education conducted, care plan discussed, diagnoses discussed, prognosis discussed, patient is full code. Patient acknowledges understanding and agreeme nt with care plan, +30 minutes. History Interval history: 65 YO Female with Vascular Dementia with Behavioral Disturbance, Cerebral Atherosclerosis, HTN, HLD, Gout, Seasonal Allergies, Acute Psychosis admitted to [facility] for psychiatric stabilization. Consult placed with Dr. Pulido for medical management. Patient seen and evaluated in the recreation room. Patient resting comfortably. No reported nursing events. Patient denies pain. Patient is at baseline level of cognition and function. Hospitalist Physical - Constitutional Vitals: Temp Pulse Resp BP Pulse Ox 98.4 F 89 20 129/64 95 09/15/21 09:28 09/15/21 09:28 09/15/21 09:28 09/15/21 09:28 09/15/21 09:28 General appearance: Present: no acute distress, well-nourished, obese - EENT Eyes: Present: PERRL ENT: hearing decreased - Neck Neck: Present: supple - Respiratory Respiratory effort: normal Respiratory: bilateral: CTA - Cardiovascular Rhythm: regular Heart Sounds: Present: S1 & S2 - Extremities Extremities: no ischemia Peripheral Pulses: within normal limits - Abdominal General gastrointestinal: soft, non-tender, non-distended - Integumentary Integumentary: Present: clear, dry - Psychiatric Psychiatric: cooperative - Neurologic Neurologic: CNII-XII intact Results - Labs CBC & Chem 7: 09/06/21 13:24 09/06/21 13:24 Labs: Laboratory Last Values WBC 9.5 K/mm3 (4.5-11.0) 09/06/21 13:24 RBC 3.76 M/mm3 (3.65-5.03) 09/06/21 13:24 Hgb 11.6 gm/dl (10.1-14.3) 09/06/21 13:24 Hct 35.2 % (30.3-42.9) 09/06/21 13:24 MCV 94 fl (79-97) 09/06/21 13:24 MCH 31 pg (28-32) 09/06/21 13:24 MCHC 33 % (30-34) 09/06/21 13:24 RDW 14.1 % (13.2-15.2) 09/06/21 13:24 Plt Count 210 K/mm3 (140-440) 09/06/21 13:24 Lymph % (Auto) 19.3 % (13.4-35.0) 09/06/21 13:24 [place] % (Auto) 5.2 % (0.0-7.3) 09/06/21 13:24 Eos % (Auto) 1.7 % (0.0-4.3) 09/06/21 13:24 Baso % (Auto) 0.5 % (0.0-1.8) 09/06/21 13:24 Lymph # (Auto) 1.8 K/mm3 (1.2-5.4) 09/06/21 13:24 [place] # (Auto) 0.5 K/mm3 (0.0-0.8) 09/06/21 13:24 Eos # (Auto) 0.2 K/mm3 (0.0-0.4) 09/06/21 13:24 Baso # (Auto) 0.0 K/mm3 (0.0-0.1) 09/06/21 13:24 Seg Neutrophils % 73.3 % (40.0-70.0) H 09/06/21 13:24 Seg Neutrophils # 6.9 K/mm3 (1.8-7.7) 09/06/21 13:24 Sodium 133 mmol/L (137-145) L 09/06/21 13:24 Potassium 4.8 mmol/L (3.6-5.0) 09/06/21 13:24 Chloride 102.4 mmol/L (98-107) 09/06/21 13:24 Carbon Dioxide 20 mmol/L (22-30) L 09/06/21 13:24 Anion Gap 15 mmol/L 09/06/21 13:24 BUN 30 mg/dL (7-17) H 09/06/21 13:24 Creatinine 1.5 mg/dL (0.6-1.2) H 09/06/21 13:24 Estimated GFR 35 ml/min 09/06/21 13:24 BUN/Creatinine Ratio 20 % 09/06/21 13:24 Glucose 156 mg/dL (65-100) H 09/06/21 13:24 POC Glucose 112 mg/dL (70-105) H 09/15/21 06:27 Hemoglobin A1c 6.7 % (4-6) H 09/06/21 13:24 Calcium 9.3 mg/dL (8.4-10.2) 09/06/21 13:24 Total Bilirubin 0.60 mg/dL (0.1-1.2) 09/06/21 13:24 AST 21 units/L (5-40) 09/06/21 13:24 ALT 10 units/L (7-56) 09/06/21 13:24 Alkaline Phosphatase 49 units/L (35-129) 09/06/21 13:24 Total Protein 7.1 g/dL (6.3-8.2) 09/06/21 13:24 Albumin 2.5 g/dL (3.9-5) L 09/06/21 13:24 Albumin/Globulin Ratio 0.5 % 09/06/21 13:24 Triglycerides 118 mg/dL (2-149) 09/06/21 13:24 Cholesterol 178 mg/dL (50-199) 09/06/21 13:24 LDL Cholesterol Direct 105 mg/dL (50-130) 09/06/21 13:24 HDL Cholesterol 60 mg/dL (40-59) H 09/06/21 13:24 Cholesterol/HDL Ratio 2.96 % 09/06/21 13:24 TSH 0.454 mlU/mL (0.270-4.200) 09/06/21 13:24 [place]/IV: Voiding Method Toilet Active Medications - Current Medications Current Medications: Generic Name Dose Route Start Last Admin Trade Name Freq PRN Reason Stop Dose Admin Allopurinol 100 mg 09/06/21 10:00 09/15/21 09:30 Allopurinol 100 Mg Tab PO 100 mg DAILY [facility]ANESSA Administration Aripiprazole 5 mg 09/12/21 11:00 09/15/21 09:30 Aripiprazole 5 Mg Tab PO 5 mg QDAY VANESSA Administration Atorvastatin Calcium 20 mg 09/06/21 22:00 09/14/21 21:54 Atorvastatin 20 Mg Tab PO 20 mg HS VANESSA Administration Buspirone HCl 5 mg 09/06/21 10:00 09/15/21 09:29 Buspirone 5 Mg Tab PO 5 mg DAILY VANESSA Administration Cetirizine HCl 10 mg 09/06/21 10:00 09/15/21 09:29 Cetirizine 10 Mg Tab PO 10 mg DAILY [facility]ANESSA Administration Divalproex Sodium 250 mg 09/13/21 10:00 09/15/21 09:[address] 250 Mg Tab PO 250 mg BID VANESSA Administration Escitalopram Oxalate 20 mg 09/07/21 10:00 09/15/21 09:29 Escitalopram 10 Mg Tab PO 20 mg QDAY [facility]ESSA Administration Metformin HCl 500 mg 09/07/21 10:00 09/15/21 09:30 Metformin 500 Mg Tab PO 500 mg BIDDIAB [facility]ANESSA Administration Nifedipine 30 mg 09/09/21 10:00 09/15/21 09:29 Nifedipine Xl 30 Mg Tab PO 30 mg QDAY VANESSA Administration Trazodone HCl 50 mg 09/06/21 22:00 09/14/21 21:54 Trazodone 50 Mg Tab PO 50 mg QHS [facility]ANESSA Administration Ziprasidone 10 mg 09/10/21 11:00 Ziprasidone Mesylate 20 Mg Vial IM Q4H PRN Agitation Nutrition/Malnutrition Assess - Dietary Evaluation Nutrition/Malnutrition Findings: Nutrition Notes Start: 09/08/21 14: 14 Freq: Status: Active Protocol: Document 09/12/21 14:58 GUY (Rec: 09/12/21 15:16 GUY [id number]) Nutrition Notes Need for Assessment generated from: LOS Initial or Follow up Assessment Current Diagnosis CKD(stage I-IV),Diabetes, Hypertension,Malnutrition, Hyperlipidemia Other Pertinent Diagnosis Major Depressive Disorder, Delusional Disorder, Allergic Rhinitis, Gout ... Current Diet Cardiac/Consistent Carbohydrates Diet (since ), D Suppl (09/08). Labs/Tests 09/12: N/A, HbA1c 6.7%. Pertinent Medications 09/12: Nutritionally unremarkable. Height 5 ft 10 in Weight 122.47 kg [place] Body Weight (kg) 68.18 BMI 38.7 Weight change and time frame No body weight reported in 4 days. Weight Status Obese Subjective/Other Information RD consult for LOS assessment. Pt's PO intake of meals and ONS has been changing on a daily basis from 0% to 100% depending on Pt's mood and appetite, according to ADL notes. Pt lives with family. Percent of energy/protein needs met: Prescribed Cardiac/Consistent Carbohydrates Diet provides for energy/protein needs (1, 977 Kcal/86 g) during LOS. Burn Absent Trauma Absent GI Symptoms None Food Allergy No Skin Integrity/Comment Assessment WNL. Current % PO Other Minimum of two criteria No #1 Nutrition Diagnosis No nutrition diagnosis at this time Is patient on ventilator? No Is Patient Ambulatory and/or Out of Bed Yes REE-([facility]-ambulatory/OOB) [ [id number] [id number]] Kcal/Kg value to use for calculation 17 Approximate Energy Requirements Using 2 kcal/Kg Calculation Used for Recommendations Kcal/kg Additional Notes Protein: 0.6-0.8 g/Kg AdjBW; 57-76 g/day. Fluids: 1 ml/Kcal, or as per MD. Nutrition Intervention Revisit per MD consult or patient Sign Off request: Additional Comments Continue monitoring food tolerance, %PO intake of meals , and BM.
[2021-09-15] MEDS: traZODone 50 MG TAB PO SCH (21:11)
--- NOTE | 2021-09-16 08:19 | Progress Note ---
Subjective Date of service: 09/16/21 Principal diagnosis: Major Depressive Disorder Subjective Comment: 09/16/21: The patient was seen today.The patient states she is doing well. She is lucid. She denies any current suicidal/homicidal ideation and denies hallucinations. 09/15/21:The patient was seen today.The patient states she is feeling better. " I did not kill my family right? then I'm good." She denies any current suicidal/homicidal ideation and denies hallucinations. 09/14/21: The patient was seen today. She presents with flat affect; the patient continues to endorse depression rates as 10/10. She reports suicidal ideation with no plan " I wish somebody can do it for me and get it over with." She endorses hallucinations "voices saying I killed my family." 09/13/21:The patient was seen today. She is sitting off to herself. She appears down. The patient says "I'm just here." She verbalizes feeling depressed and suicidal. She denies hallucinations. 09/12 The patient was seen today. She is in the dayroom with her head down. She easily arouses. She says "I'm just here." She verbalizes feeling depressed. I ask the patient why is she depressed, she replies "you know why." The patient says "I don't really want to live." She then says "I don't want to talk about it." 09/11 The patient was seen today. Staff and hospitalist with the patient. The patient's BP was initially low, but has normalized now. The patient was taken to the day room, she is shaking and asking to go back to bed. She is irritable and acting bizarre. I touch her and she shakes vigorously and tells me not to touch her. She says "I don't feel good." I ask the patient why she didn't feel good, she says "put me in my room. That chair is nasty." She refused to answer if she was having hallucinations or feeling suicidal. She says "Shhhhhh, I want to go to my room." 09/10 The patient was seen today. She is lying in bed awake. Her thoughts are disorganized. The patient is acting bizarre. She is staring at the ceiling with her right arm stuck out. She says "my arm is still on the plane." She says "they are smoking on the plane." The patient says "my body is still on this plane. Get out of here." She says "get out of here." The patient then stops talking. 09/09 The patient was seen today. She is sleeping. She is irritable at me waking her up. [facility] to silence me. She verbalizes being depressed. She says "I don't want to talk about it," when asking her was she suicidal. The nurse says the patient was given Geodon prn and it just started to take affect this morning. Nurse note states the patient was agitated, combative and hallucinating. 09/08 The patient was seen today. She is sitting in the dayroom. She is paranoid and delusional. She appears withdrawn. The patient says she is depressed. She then says "I killed my whole family, remember?" I tell the patient that none of that happened. She becomes upset, and says "just don't say nothing else." She refused to speak any further. REVIEW OF SYSTEMS Constitutional: Negative for weight loss ENT: Negative for stridor Respiratory: Negative for cough or hemoptysis All other systems reviewed and are negative MENTAL STATUS EXAMINATION General Appearance and Behavior: Age appropriate, good hygiene, wearing appropriate clothes, good eye contact, calm, cooperative Cooperation: Participating/engaged, but Guarded Psychomotor Behavior: Psychomotor normal Mood:"ok" Affect and affective range: congruent Thought Process: Goal directed Thought Content: Reality oriented Speech: normal tone and pace Suicidal Ideation: Denies Homicidal Ideation: Denies Hallucinations: Denies Delusions: None elicited Impulse Control: Limited Insight and Judgment: Limited insight and judgment Memory: Limited Attention: attentive Orientation: Alert, oriented Assessment and Plan Delusional disorder Treatment Plan Patient admitted for inpatient psychiatric evaluation, medication adjustment and close monitoring The patient's behavior, mood, sleep and appetite will be closely monitored. Patient enrolled in individual and group therapeutic sessions and encouraged to attend. Patient provided with a safe and structured environment. Patient's physical health needs will be addressed by the Hospitalist. Hospitalist Consulted Labs including CBC, CMP, Lipid profile and Hemoglobin A1C levels ordered for baseline reference Social Assessment will be completed and the Felt Hat Mellowing Machine Operator will work with patient and family to ensure a suitable and safe disposition Medication adjustment will be made as clinically indicated Continue Abilify 5mg po daily Continue Depakote DR 250mg po BID Usual Wellness Mormon/Preservation: - Start Trazodone 50 mg po QHS & 50 mg po QHS PRN between 10 PM & 2 AM for insomnia - Start Melatonin 5 mg po QHS to promote circadian rhythm The patient agreed on the treatment plan, understood the risk, benefit, alternative treatment, potential consequence of no treatment, and gave informed consent. Estimated days: 0 Post hospital care: primary care provider, psychiatric provider Case staffed with Dr. Christopher Medications and Allergies Medications and Allergies Allergies Allergy/AdvReac Type Severity Reaction Status Date / Time No Known Allergies Allergy Unverified 09/05/21 22:34 Home Medications Medication Instructions Recorded Confirmed Last Taken Type AtorvaSTATin [Lipitor] 20 mg PO HS 09/06/21 09/06/21 Unknown History Cetirizine HCl 10 mg PO DAILY 09/06/21 09/06/21 Unknown History Escitalopram [Lexapro] 10 mg PO DAILY 09/06/21 09/06/21 Unknown History Losartan Potassium 100 mg PO DAILY 09/06/21 09/06/21 Unknown History allopurinoL [Zyloprim] 100 mg PO DAILY 09/06/21 09/06/21 Unknown History busPIRone [Buspar] 5 mg PO DAILY 09/06/21 09/06/21 Unknown History cloNIDine [Catapres] 0.1 mg PO BID 09/06/21 09/06/21 Unknown History Active Meds: Active Medications Allopurinol (Allopurinol 100 Mg Tab) 100 mg PO DAILY [facility] Last Admin: 09/15/21 09:30 Dose: 100 mg Aripiprazole (Aripiprazole 5 Mg Tab) 5 mg PO QDAY [facility] Last Admin: 09/15/21 09:30 Dose: 5 mg Atorvastatin Calcium (Atorvastatin 20 Mg Tab) 20 mg PO [facility] Last Admin: 09/15/21 21:11 Dose: 20 mg Buspirone HCl (Buspirone 5 Mg Tab) 5 mg PO DAILY [facility] Last Admin: 09/15/21 09:29 Dose: 5 mg Cetirizine HCl (Cetirizine 10 Mg Tab) 10 mg PO DAILY [facility] Last Admin: 09/15/21 09:29 Dose: 10 mg Divalproex Sodium (Divalproex Dr 250 Mg Tab) 250 mg PO BID [facility] Last Admin: 09/15/21 21:11 Dose: 250 mg Escitalopram Oxalate (Escitalopram 10 Mg Tab) 20 mg PO QDAY [facility] Last Admin: 09/15/21 09:29 Dose: 20 mg Metformin HCl (Metformin 500 Mg Tab) 500 mg PO BIDDIAB [facility] Last Admin: 09/15/21 17:09 Dose: 500 mg Nifedipine (Nifedipine Xl 30 Mg Tab) 30 mg PO QDAY [facility] Last Admin: 09/15/21 09:29 Dose: 30 mg Trazodone HCl (Trazodone 50 Mg Tab) 50 mg PO QHS [facility] Last Admin: 09/15/21 21:11 Dose: 50 mg Ziprasidone (Ziprasidone Mesylate 20 Mg Vial) 10 mg IM Q4H PRN PRN Reason: Agitation Results - Results Labs/Vitals: Laboratory Last Values WBC 9.5 K/mm3 (4.5-11.0) 09/06/21 13:24 RBC 3.76 M/mm3 (3.65-5.03) 09/06/21 13:24 Hgb 11.6 gm/dl (10.1-14.3) 09/06/21 13:24 Hct 35.2 % (30.3-42.9) 09/06/21 13:24 MCV 94 fl (79-97) 09/06/21 13:24 MCH 31 pg (28-32) 09/06/21 13:24 MCHC 33 % (30-34) 09/06/21 13:24 RDW 14.1 % (13.2-15.2) 09/06/21 13:24 Plt Count 210 K/mm3 (140-440) 09/06/21 13:24 Lymph % (Auto) 19.3 % (13.4-35.0) 09/06/21 13:24 [place] % (Auto) 5.2 % (0.0-7.3) 09/06/21 13:24 Eos % (Auto) 1.7 % (0.0-4.3) 09/06/21 13:24 Baso % (Auto) 0.5 % (0.0-1.8) 09/06/21 13:24 Lymph # (Auto) 1.8 K/mm3 (1.2-5.4) 09/06/21 13:24 [place] # (Auto) 0.5 K/mm3 (0.0-0.8) 09/06/21 13:24 Eos # (Auto) 0.2 K/mm3 (0.0-0.4) 09/06/21 13:24 Baso # (Auto) 0.0 K/mm3 (0.0-0.1) 09/06/21 13:24 Seg Neutrophils % 73.3 % (40.0-70.0) H 09/06/21 13:24 Seg Neutrophils # 6.9 K/mm3 (1.8-7.7) 09/06/21 13:24 Sodium 133 mmol/L (137-145) L 09/06/21 13:24 Potassium 4.8 mmol/L (3.6-5.0) 09/06/21 13:24 Chloride 102.4 mmol/L (98-107) 09/06/21 13:24 Carbon Dioxide 20 mmol/L (22-30) L 09/06/21 13:24 Anion Gap 15 mmol/L 09/06/21 13:24 BUN 30 mg/dL (7-17) H 09/06/21 13:24 Creatinine 1.5 mg/dL (0.6-1.2) H 09/06/21 13:24 Estimated GFR 35 ml/min 09/06/21 13:24 BUN/Creatinine Ratio 20 % 09/06/21 13:24 Glucose 156 mg/dL (65-100) H 09/06/21 13:24 POC Glucose 112 mg/dL (70-105) H 09/15/21 06:27 Hemoglobin A1c 6.7 % (4-6) H 09/06/21 13:24 Calcium 9.3 mg/dL (8.4-10.2) 09/06/21 13:24 Total Bilirubin 0.60 mg/dL (0.1-1.2) 09/06/21 13:24 AST 21 units/L (5-40) 09/06/21 13:24 ALT 10 units/L (7-56) 09/06/21 13:24 Alkaline Phosphatase 49 units/L (35-129) 09/06/21 13:24 Total Protein 7.1 g/dL (6.3-8.2) 09/06/21 13:24 Albumin 2.5 g/dL (3.9-5) L 09/06/21 13:24 Albumin/Globulin Ratio 0.5 % 09/06/21 13:24 Triglycerides 118 mg/dL (2-149) 09/06/21 13:24 Cholesterol 178 mg/dL (50-199) 09/06/21 13:24 LDL Cholesterol Direct 105 mg/dL (50-130) 09/06/21 13:24 HDL Cholesterol 60 mg/dL (40-59) H 09/06/21 13:24 Cholesterol/HDL Ratio 2.96 % 09/06/21 13:24 TSH 0.454 mlU/mL (0.270-4.200) 09/06/21 13:24 Last Vital Signs Temp 97.6 F 09/16/21 07:25 Pulse 75 09/16/21 07:25 Resp 16 09/16/21 07:25 BP 145/74 09/16/21 07:25 Pulse Ox 97 09/16/21 07:25
[2021-09-16] MEDS: ESCITALOPRAM 10 MG TAB PO SCH (09:21)
[2021-09-16] MEDS: NIFEdipine XL 30 MG TAB PO SCH (09:21)
[2021-09-16] MEDS: metFORMIN 500 MG TAB PO SCH ×2 (09:22→16:40)
[2021-09-16] MEDS: CETIRIZINE 10 MG TAB PO SCH (09:22)
[2021-09-16] MEDS: ARIPiprazole 5 MG TAB PO SCH (09:22)
[2021-09-16] MEDS: busPIRone 5 MG TAB PO SCH (09:22)
[2021-09-16] MEDS: DIVALPROEX DR 250 MG TAB PO SCH ×2 (09:22→21:30)
[2021-09-16] MEDS: allopurinoL 100 MG TAB PO SCH (09:22)
--- NOTE | 2021-09-16 20:41 | Progress Note ---
Assessment and Plan - Patient Problems (1) Vascular dementia with behavioral disturbance Current Visit: Yes Status: Acute Plan to address problem: Verbal prompting, verbal redirection, benzodiazepine therapy as clinically indicated. (2) Cerebral atherosclerosis Current Visit: Yes Status: Acute Plan to address problem: Risk factor reduction, antiplatelet therapy as clinically indicated. (3) Obesity hypoventilation syndrome Current Visit: Yes Status: Acute Plan to address problem: Balanced diet, increase physical activity discharge, outpatient pulmonary fo llow-up for sleep study. (4) Acute psychosis Current Visit: Yes Status: Acute Plan to address problem: Supportive care, continue medical management (5) Hypertension Current Visit: Yes Status: Acute Qualifiers: Hypertension type: primary hypertension Qualified Code(s): I10 - Essential (primary) hypertension Plan to address problem: Monitor blood pressure every shift, continue medical management (6) Hyperlipidemia Current Visit: Yes Status: Acute Qualifiers: Hyperlipidemia type: mixed hyperlipidemia Qualified Code(s): E78.2 - Mixed hyperlipidemia Plan to address problem: Low-cholesterol diet, supportive care, (7) Seasonal allergies Current Visit: Yes Status: Acute Plan to address problem: Continue oral antihistamine therapy as clinically indicated. (8) Advance care planning Current Visit: Yes Status: Acute Plan to address problem: Disease education conducted, care plan discussed, diagnoses discussed, prognosis discussed, patient is full code. Patient acknowledges understanding and agreeme nt with care plan, +30 minutes. History Interval history: 65 YO Female with Vascular Dementia with Behavioral Disturbance, Cerebral Atherosclerosis, HTN, HLD, Gout, Seasonal Allergies, Acute Psychosis admitted to [facility] for psychiatric stabilization. Consult placed with Dr. Pulido for medical management. Patient seen and evaluated in the recreation room. Patient resting comfortably. No reported nursing events. Patient denies pain. Patient is currently at baseline level of cognition and function. Hospitalist Physical - Constitutional Vitals: Temp Pulse Resp BP Pulse Ox 98.6 F 82 17 106/49 94 09/16/21 19:18 09/16/21 19:18 09/16/21 19:18 09/16/21 19:18 09/16/21 19:18 General appearance: Present: no acute distress, well-nourished, obese - EENT Eyes: Present: PERRL ENT: hearing decreased - Neck Neck: Present: supple - Respiratory Respiratory effort: normal Respiratory: bilateral: CTA - Cardiovascular Rhythm: regular Heart Sounds: Present: S1 & S2 - Extremities Extremities: no ischemia Peripheral Pulses: within normal limits - Abdominal General gastrointestinal: soft, non-tender, non-distended - Integumentary Integumentary: Present: clear, dry - Psychiatric Psychiatric: cooperative - Neurologic Neurologic: CNII-XII intact Results - Labs CBC & Chem 7: 09/06/21 13:24 09/06/21 13:24 Labs: Laboratory Last Values WBC 9.5 K/mm3 (4.5-11.0) 09/06/21 13:24 RBC 3.76 M/mm3 (3.65-5.03) 09/06/21 13:24 Hgb 11.6 gm/dl (10.1-14.3) 09/06/21 13:24 Hct 35.2 % (30.3-42.9) 09/06/21 13:24 MCV 94 fl (79-97) 09/06/21 13:24 MCH 31 pg (28-32) 09/06/21 13:24 MCHC 33 % (30-34) 09/06/21 13:24 RDW 14.1 % (13.2-15.2) 09/06/21 13:24 Plt Count 210 K/mm3 (140-440) 09/06/21 13:24 Lymph % (Auto) 19.3 % (13.4-35.0) 09/06/21 13:24 [place] % (Auto) 5.2 % (0.0-7.3) 09/06/21 13:24 Eos % (Auto) 1.7 % (0.0-4.3) 09/06/21 13:24 Baso % (Auto) 0.5 % (0.0-1.8) 09/06/21 13:24 Lymph # (Auto) 1.8 K/mm3 (1.2-5.4) 09/06/21 13:24 [place] # (Auto) 0.5 K/mm3 (0.0-0.8) 09/06/21 13:24 Eos # (Auto) 0.2 K/mm3 (0.0-0.4) 09/06/21 13:24 Baso # (Auto) 0.0 K/mm3 (0.0-0.1) 09/06/21 13:24 Seg Neutrophils % 73.3 % (40.0-70.0) H 09/06/21 13:24 Seg Neutrophils # 6.9 K/mm3 (1.8-7.7) 09/06/21 13:24 Sodium 133 mmol/L (137-145) L 09/06/21 13:24 Potassium 4.8 mmol/L (3.6-5.0) 09/06/21 13:24 Chloride 102.4 mmol/L (98-107) 09/06/21 13:24 Carbon Dioxide 20 mmol/L (22-30) L 09/06/21 13:24 Anion Gap 15 mmol/L 09/06/21 13:24 BUN 30 mg/dL (7-17) H 09/06/21 13:24 Creatinine 1.5 mg/dL (0.6-1.2) H 09/06/21 13:24 Estimated GFR 35 ml/min 09/06/21 13:24 BUN/Creatinine Ratio 20 % 09/06/21 13:24 Glucose 156 mg/dL (65-100) H 09/06/21 13:24 POC Glucose 106 mg/dL (70-105) H 09/16/21 06:41 Hemoglobin A1c 6.7 % (4-6) H 09/06/21 13:24 Calcium 9.3 mg/dL (8.4-10.2) 09/06/21 13:24 Total Bilirubin 0.60 mg/dL (0.1-1.2) 09/06/21 13:24 AST 21 units/L (5-40) 09/06/21 13:24 ALT 10 units/L (7-56) 09/06/21 13:24 Alkaline Phosphatase 49 units/L (35-129) 09/06/21 13:24 Total Protein 7.1 g/dL (6.3-8.2) 09/06/21 13:24 Albumin 2.5 g/dL (3.9-5) L 09/06/21 13:24 Albumin/Globulin Ratio 0.5 % 09/06/21 13:24 Triglycerides 118 mg/dL (2-149) 09/06/21 13:24 Cholesterol 178 mg/dL (50-199) 09/06/21 13:24 LDL Cholesterol Direct 105 mg/dL (50-130) 09/06/21 13:24 HDL Cholesterol 60 mg/dL (40-59) H 09/06/21 13:24 Cholesterol/HDL Ratio 2.96 % 09/06/21 13:24 TSH 0.454 mlU/mL (0.270-4.200) 09/06/21 13:24 Sanabria/IV: Voiding Method Toilet Active Medications - Current Medications Current Medications: Generic Name Dose Route Start Last Admin Trade Name Freq PRN Reason Stop Dose Admin Allopurinol 100 mg 09/06/21 10:00 09/16/21 09:22 Allopurinol 100 Mg Tab PO 100 mg DAILY VANESSA Administration Aripiprazole 5 mg 09/12/21 11:00 09/16/21 09:22 Aripiprazole 5 Mg Tab PO 5 mg QDAY VANESSA Administration Atorvastatin Calcium 20 mg 09/06/21 22:00 09/15/21 21:11 Atorvastatin 20 Mg Tab PO 20 mg HS VANESSA Administration Buspirone HCl 5 mg 09/06/21 10:00 09/16/21 09:22 Buspirone 5 Mg Tab PO 5 mg DAILY VANESSA Administration Cetirizine HCl 10 mg 09/06/21 10:00 09/16/21 09:22 Cetirizine 10 Mg Tab PO 10 mg DAILY VANESSA Administration Divalproex Sodium 250 mg 09/13/21 10:00 09/16/21 09:[address] 250 Mg Tab PO 250 mg BID VANESSA Administration Escitalopram Oxalate 20 mg 09/07/21 10:00 09/16/21 09:21 Escitalopram 10 Mg Tab PO 20 mg QDAY VANESSA Administration Metformin HCl 500 mg 09/07/21 10:00 09/16/21 16:40 Metformin 500 Mg Tab PO 500 mg BIDDIAB VANESSA Administration Nifedipine 30 mg 09/09/21 10:00 09/16/21 09:21 Nifedipine Xl 30 Mg Tab PO 30 mg QDAY VANESSA Administration Trazodone HCl 50 mg 09/06/21 22:00 09/15/21 21:11 Trazodone 50 Mg Tab PO 50 mg QHS VANESSA Administration Ziprasidone 10 mg 09/10/21 11:00 Ziprasidone Mesylate 20 Mg Vial IM Q4H PRN Agitation Nutrition/Malnutrition Assess - Dietary Evaluation Nutrition/Malnutrition Findings: Nutrition Notes Start: 09/08/21 14:14 Freq: Status: Active Protocol: Document 09/12/21 14:58 GUY (Rec: 09/12/21 15:16 GUY [email or web address]) Nutrition Notes Need for Assessment generated from: LOS Initial or Follow up Assessment Current Diagnosis CKD(stage I-IV),Diabetes, Hypertension,Malnutrition, Hyperlipidemia Other Pertinent Diagnosis Major Depressive Disorder, Delusional Disorder, Allergic Rhinitis, Gout ... Current Diet Cardiac/Consistent Carbohydrates Diet (since ), D Suppl (09/08). Labs/Tests 09/12: N/A, HbA1c 6.7%. Pertinent Medications 09/12: Nutritionally unremarkable. Height 5 ft 10 in Weight 122.47 kg Gabbs Body Weight (kg) 68.18 BMI 38.7 Weight change and time frame No body weight reported in 4 days. Weight Status Obese Subjective/Other Information RD consult for LOS assessment. Pt's PO intake of meals and ONS has been changing on a daily basis from 0% to 100% depending on Pt's mood and appetite, according to ADL notes. Pt lives with family. Percent of energy/protein needs met: Prescribed Cardiac/Consistent Carbohydrates Diet provides for energy/protein needs (1, 977 Kcal/86 g) during LOS. Burn Absent Trauma Absent GI Symptoms None Food Allergy No Skin Integrity/Comment Assessment WNL. Current % PO Other Minimum of two criteria No #1 Nutrition Diagnosis No nutrition diagnosis at this time Is patient on ventilator? No Is Patient Ambulatory and/or Out of Bed Yes REE-([facility]-ambulatory/OOB) [ [id number] [id number]] Kcal/Kg value to use for calculation 17 Approximate Energy Requirements Using 2 kcal/Kg Calculation Used for Recommendations Kcal/kg Additional Notes Protein: 0.6-0.8 g/Kg AdjBW; 57-76 g/day. Fluids: 1 ml/Kcal, or as per MD. Nutrition Intervention Revisit per MD consult or patient Sign Off request: Additional Comments Continue monitoring food tolerance, %PO intake of meals , and BM.
[2021-09-16] MEDS: traZODone 50 MG TAB PO SCH (21:30)
--- NOTE | 2021-09-17 08:55 | Progress Note ---
Subjective Date of service: 09/17/21 Principal diagnosis: Major Depressive Disorder Subjective Comment: 09/17/21: The patient was seen today. She is pleasant. The patient states she is doing well. She reports sleep and appetite as good. She denies any current suicidal/homicidal ideation and denies hallucinations. 09/16/21: The patient was seen today.The patient states she is doing well. She is lucid. She denies any current suicidal/homicidal ideation and denies hallu cinations. 09/15/21:The patient was seen today.The patient states she is feeling better. " I did not kill my family right? then I'm good." She denies any current suicidal/homicidal ideation and denies hallucinations. 09/14/21: The patient was seen today. She presents with flat affect; the patient continues to endorse depression rates as 10/10. She reports suicidal ideation with no plan " I wish somebody can do it for me and get it over with." She endorses hallucinations "voices saying I killed my family." 09/13/21:The patient was seen today. She is sitting off to herself. She appears down. The patient says "I'm just here." She verbalizes feeling depressed and suicidal. She denies hallucinations. 09/12 The patient was seen today. She is in the dayroom with her head down. She easily arouses. She says "I'm just here." She verbalizes feeling depressed. I ask the patient why is she depressed, she replies "you know why." The patient says "I don't really want to live." She then says "I don't want to talk about it." 09/11 The patient was seen today. Staff and hospitalist with the patient. The patient's BP was initially low, but has normalized now. The patient was taken to the day room, she is shaking and asking to go back to bed. She is irritable and acting bizarre. I touch her and she shakes vigorously and tells me not to touch her. She says "I don't feel good." I ask the patient why she didn't feel good, she says "put me in my room. That chair is nasty." She refused to answer if she was having hallucinations or feeling suicidal. [facility] 09/10 The patient was seen today. She is lying in bed awake. Her thoughts are disorganized. The patient is acting bizarre. She is staring at the ceiling with her right arm stuck out. She says "my arm is still on the plane." She says "they are smoking on the plane." The patient says "my body is still on this plane. Get out of here." She says "get out of here." The patient then stops talking. 09/09 The patient was seen today. She is sleeping. She is irritable at me waking her up. She tells me to "shhhhhh" to silence me. She verbalizes being depressed. She says "I don't want to talk about it," when asking her was she suicidal. The nurse says the patient was given Geodon prn and it just started to take affect this morning. Nurse note states the patient was agitated, combative and hallucinating. 09/08 The patient was seen today. She is sitting in the dayroom. She is paranoid and delusional. She appears withdrawn. The patient says she is depressed. She then says "I killed my whole family, remember?" I tell the patient that none of that happened. She becomes upset, and says "just don't say nothing else." She refused to speak any further. REVIEW OF SYSTEMS Constitutional: Negative for weight loss ENT: Negative for stridor Respiratory: Negative for cough or hemoptysis All other systems reviewed and are negative MENTAL STATUS EXAMINATION General Appearance and Behavior: Age appropriate, good hygiene, wearing appropriate clothes, good eye contact, calm, cooperative Cooperation: Participating/engaged, but Guarded Psychomotor Behavior: Psychomotor normal Mood:good Affect and affective range: congruent Thought Process: Goal directed Thought Content: Reality oriented Speech: normal tone and pace Suicidal Ideation: Denies Homicidal Ideation: Denies Hallucinations: Denies Delusions: None elicited Impulse Control: Limited Insight and Judgment: Limited insight and judgment Memory: Limited Attention: attentive Orientation: Alert, oriented Assessment and Plan Delusional disorder Treatment Plan Patient admitted for inpatient psychiatric evaluation, medication adjustment and close monitoring The patient's behavior, mood, sleep and appetite will be closely monitored. Patient enrolled in individual and group therapeutic sessions and encouraged to attend. Patient provided with a safe and structured environment. Patient's physical health needs will be addressed by the Hospitalist. Hospitalist Consulted Labs including CBC, CMP, Lipid profile and Hemoglobin A1C levels ordered for baseline reference Social Assessment will be completed and the Study Specialist will work with patient and family to ensure a suitable and safe disposition Medication adjustment will be made as clinically indicated Continue Abilify 5mg po daily Continue Depakote DR 250mg po BID Usual Wellness Hindu/Preservation: - Start Trazodone 50 mg po QHS & 50 mg po QHS PRN between 10 PM & 2 AM for insomnia - Start Melatonin 5 mg po QHS to promote circadian rhythm The patient agreed on the treatment plan, understood the risk, benefit, alternative treatment, potential consequence of no treatment, and gave informed consent. Estimated days: 0 Post hospital care: primary care provider, psychiatric provider Case staffed with Dr. Christopher Medications and Allergies Medications and Allergies Allergies Allergy/AdvReac Type Severity Reaction Status Date / Time No Known Allergies Allergy Unverified 09/05/21 22:34 Home Medications Medication Instructions Recorded Confirmed Last Taken Type AtorvaSTATin [Lipitor] 20 mg PO HS 09/06/21 09/06/21 Unknown History Cetirizine HCl 10 mg PO DAILY 09/06/21 09/06/21 Unknown History Escitalopram [Lexapro] 10 mg PO DAILY 09/06/21 09/06/21 Unknown History Losartan Potassium 100 mg PO DAILY 09/06/21 09/06/21 Unknown History allopurinoL [Zyloprim] 100 mg PO DAILY 09/06/21 09/06/21 Unknown History busPIRone [Buspar] 5 mg PO DAILY 09/06/21 09/06/21 Unknown History cloNIDine [Catapres] 0.1 mg PO BID 09/06/21 09/06/21 Unknown History Active Meds: Active Medications Allopurinol (Allopurinol 100 Mg Tab) 100 mg PO DAILY [facility] Last Admin: 09/16/21 09:22 Dose: 100 mg Aripiprazole (Aripiprazole 5 Mg Tab) 5 mg PO QDAY [facility] Last Admin: 09/16/21 09:22 Dose: 5 mg Atorvastatin Calcium (Atorvastatin 20 Mg Tab) 20 mg PO [facility] Last Admin: 09/16/21 21:30 Dose: 20 mg Buspirone HCl (Buspirone 5 Mg Tab) 5 mg PO DAILY [facility] Last Admin: 09/16/21 09:22 Dose: 5 mg Cetirizine HCl (Cetirizine 10 Mg Tab) 10 mg PO DAILY [facility] Last Admin: 09/16/21 09:22 Dose: 10 mg Divalproex Sodium (Divalproex Dr 250 Mg Tab) 250 mg PO BID [facility] Last Admin: 09/16/21 21:30 Dose: 250 mg Escitalopram Oxalate (Escitalopram 10 Mg Tab) 20 mg PO QDAY [facility] Last Admin: 09/16/21 09:21 Dose: 20 mg Metformin HCl (Metformin 500 Mg Tab) 500 mg PO BIDDIAB [facility] Last Admin: 09/16/21 16:40 Dose: 500 mg Nifedipine (Nifedipine Xl 30 Mg Tab) 30 mg PO QDAY [facility] Last Admin: 09/16/21 09:21 Dose: 30 mg Trazodone HCl (Trazodone 50 Mg Tab) 50 mg PO QHS [facility] Last Admin: 09/16/21 21:30 Dose: 50 mg Ziprasidone (Ziprasidone Mesylate 20 Mg Vial) 10 mg IM Q4H PRN PRN Reason: Agitation Results - Results Labs/Vitals: Laboratory Last Values WBC 9.5 K/mm3 (4.5-11.0) 09/06/21 13:24 RBC 3.76 M/mm3 (3.65-5.03) 09/06/21 13:24 Hgb 11.6 gm/dl (10.1-14.3) 09/06/21 13:24 Hct 35.2 % (30.3-42.9) 09/06/21 13:24 MCV 94 fl (79-97) 09/06/21 13:24 MCH 31 pg (28-32) 09/06/21 13:24 MCHC 33 % (30-34) 09/06/21 13:24 RDW 14.1 % (13.2-15.2) 09/06/21 13:24 Plt Count 210 K/mm3 (140-440) 09/06/21 13:24 Lymph % (Auto) 19.3 % (13.4-35.0) 09/06/21 13:24 [place] % (Auto) 5.2 % (0.0-7.3) 09/06/21 13:24 Eos % (Auto) 1.7 % (0.0-4.3) 09/06/21 13:24 Baso % (Auto) 0.5 % (0.0-1.8) 09/06/21 13:24 Lymph # (Auto) 1.8 K/mm3 (1.2-5.4) 09/06/21 13:24 [place] # (Auto) 0.5 K/mm3 (0.0-0.8) 09/06/21 13:24 Eos # (Auto) 0.2 K/mm3 (0.0-0.4) 09/06/21 13:24 Baso # (Auto) 0.0 K/mm3 (0.0-0.1) 09/06/21 13:24 Seg Neutrophils % 73.3 % (40.0-70.0) H 09/06/21 13:24 Seg Neutrophils # 6.9 K/mm3 (1.8-7.7) 09/06/21 13:24 Sodium 133 mmol/L (137-145) L 09/06/21 13:24 Potassium 4.8 mmol/L (3.6-5.0) 09/06/21 13:24 Chloride 102.4 mmol/L (98-107) 09/06/21 13:24 Carbon Dioxide 20 mmol/L (22-30) L 09/06/21 13:24 Anion Gap 15 mmol/L 09/06/21 13:24 BUN 30 mg/dL (7-17) H 09/06/21 13:24 Creatinine 1.5 mg/dL (0.6-1.2) H 09/06/21 13:24 Estimated GFR 35 ml/min 09/06/21 13:24 BUN/Creatinine Ratio 20 % 09/06/21 13:24 Glucose 156 mg/dL (65-100) H 09/06/21 13:24 POC Glucose 88 mg/dL (70-105) 09/17/21 06:54 Hemoglobin A1c 6.7 % (4-6) H 09/06/21 13:24 Calcium 9.3 mg/dL (8.4-10.2) 09/06/21 13:24 Total Bilirubin 0.60 mg/dL (0.1-1.2) 09/06/21 13:24 AST 21 units/L (5-40) 09/06/21 13:24 ALT 10 units/L (7-56) 09/06/21 13:24 Alkaline Phosphatase 49 units/L (35-129) 09/06/21 13:24 Total Protein 7.1 g/dL (6.3-8.2) 09/06/21 13:24 Albumin 2.5 g/dL (3.9-5) L 09/06/21 13:24 Albumin/Globulin Ratio 0.5 % 09/06/21 13:24 Triglycerides 118 mg/dL (2-149) 09/06/21 13:24 Cholesterol 178 mg/dL (50-199) 09/06/21 13:24 LDL Cholesterol Direct 105 mg/dL (50-130) 09/06/21 13:24 HDL Cholesterol 60 mg/dL (40-59) H 09/06/21 13:24 Cholesterol/HDL Ratio 2.96 % 09/06/21 13:24 TSH 0.454 mlU/mL (0.270-4.200) 09/06/21 13:24 Last Vital Signs Temp 98.6 F 09/16/21 19:18 Pulse 82 09/16/21 19:18 Resp 17 09/16/21 19:18 BP 106/49 09/16/21 19:18 Pulse Ox 94 09/16/21 19:18
[2021-09-17] MEDS: NIFEdipine XL 30 MG TAB PO SCH (09:27)
[2021-09-17] MEDS: ESCITALOPRAM 10 MG TAB PO SCH (09:27)
[2021-09-17] MEDS: ARIPiprazole 5 MG TAB PO SCH (09:27)
[2021-09-17] MEDS: allopurinoL 100 MG TAB PO SCH (09:27)
[2021-09-17] MEDS: CETIRIZINE 10 MG TAB PO SCH (09:27)
[2021-09-17] MEDS: DIVALPROEX DR 250 MG TAB PO SCH ×2 (09:27→21:03)
[2021-09-17] MEDS: busPIRone 5 MG TAB PO SCH (09:27)
[2021-09-17] MEDS: metFORMIN 500 MG TAB PO SCH ×2 (09:27→17:11)
[2021-09-17] MEDS: traZODone 50 MG TAB PO SCH (21:03)
[2021-09-18] MEDS: metFORMIN 500 MG TAB PO SCH ×2 (07:56→16:48)
--- NOTE | 2021-09-18 10:01 | Progress Note ---
Subjective Date of service: 09/18/21 Principal diagnosis: Major Depressive Disorder Subjective Comment: 09/18/21:The patient was seen today. The patient states she is doing okay. She reports sleep and appetite as good. She denies any current suicidal/homicidal ideation and denies hallucinations. 09/17/21: The patient was seen today. She is pleasant. The patient states she is doing well. She reports sleep and appetite as good. She denies any current suicidal/homicidal ideation and denies hallucinations. 09/16/21: The patient was seen today.The patient states she is doing well. She is lucid. She denies any current suicidal/homicidal ideation and denies hallucinations. 09/15/21:The patient was seen today.The patient states she is feeling better. " I did not kill my family right? then I'm good." She denies any current suicidal/homicidal ideation and denies hallucinations. 09/14/21: The patient was seen today. She presents with flat affect; the patient continues to endorse depression rates as 10/10. She reports suicidal ideation with no plan " I wish somebody can do it for me and get it over with." She endorses hallucinations "voices saying I killed my family." 09/13/21:The patient was seen today. She is sitting off to herself. She appears down. The patient says "I'm just here." She verbalizes feeling depressed and suicidal. She denies hallucinations. 09/12 The patient was seen today. She is in the dayroom with her head down. She easily arouses. She says "I'm just here." She verbalizes feeling depressed. I ask the patient why is she depressed, she replies "you know why." The patient says "I don't really want to live." She then says "I don't want to talk about it." 09/11 The patient was seen today. Staff and hospitalist with the patient. The patient's BP was initially low, but has normalized now. The patient was taken to the day room, she is shaking and asking to go back to bed. She is irritable and acting bizarre. I touch her and she shakes vigorously and tells me not to touch her. She says "I don't feel good." I ask the patient why she didn't feel good, she says "put me in my room. That chair is nasty." She refused to answer if she was having hallucinations or feeling suicidal. She says "Shhhhhh, I want to go to my room." 09/10 The patient was seen today. She is lying in bed awake. Her thoughts are disorganized. The patient is acting bizarre. She is staring at the ceiling with her right arm stuck out. She says "my arm is still on the plane." She says "they are smoking on the plane." The patient says "my body is still on this plane. Get out of here." She says "get out of here." The patient then stops talking. 09/09 The patient was seen today. She is sleeping. She is irritable at me waking her up. She tells me to "shhhhhh" to silence me. She verbalizes being depressed. She says "I don't want to talk about it," when asking her was she suicidal. The nurse says the patient was given Geodon prn and it just started to take affect this morning. Nurse note states the patient was agitated, combative and hallucinating. 09/08 The patient was seen today. She is sitting in the dayroom. She is paranoid and delusional. She appears withdrawn. The patient says she is depressed. She then says "I killed my whole family, remember?" I tell the patient that none of that happened. She becomes upset, and says "just don't say nothing else." She refused to speak any further. REVIEW OF SYSTEMS Constitutional: Negative for weight loss ENT: Negative for stridor Respiratory: Negative for cough or hemoptysis All other systems reviewed and are negative MENTAL STATUS EXAMINATION General Appearance and Behavior: Age appropriate, good hygiene, wearing appropriate clothes, good eye contact, calm, cooperative Cooperation: Participating/engaged, but Guarded Psychomotor Behavior: Psychomotor normal Mood:OK Affect and affective range: congruent Thought Process: Goal directed Thought Content: Reality oriented Speech: normal tone and pace Suicidal Ideation: Denies Homicidal Ideation: Denies Hallucinations: Denies Delusions: None elicited Impulse Control: Limited Insight and Judgment: Limited insight and judgment Memory: Limited Attention: attentive Orientation: Alert, oriented Assessment and Plan Delusional disorder Treatment Plan Patient admitted for inpatient psychiatric evaluation, medication adjustment and close monitoring The patient's behavior, mood, sleep and appetite will be closely monitored. Patient enrolled in individual and group therapeutic sessions and encouraged to attend. Patient provided with a safe and structured environment. Patient's physical health needs will be addressed by the Hospitalist. Hospitalist Consulted Labs including CBC, CMP, Lipid profile and Hemoglobin A1C levels ordered for baseline reference Social Assessment will be completed and the Leader Tier will work with patient and family to ensure a suitable and safe disposition Medication adjustment will be made as clinically indicated Continue Abilify 5mg po daily Continue Depakote DR 250mg po BID Usual Wellness Mandaeism/Preservation: - Start Trazodone 50 mg po QHS & 50 mg po QHS PRN between 10 PM & 2 AM for insomnia - Start Melatonin 5 mg po QHS to promote circadian rhythm The patient agreed on the treatment plan, understood the risk, benefit, alternative treatment, potential consequence of no treatment, and gave informed consent. Estimated days: 0 Post hospital care: primary care provider, psychiatric provider Case staffed with Dr. Christopher Medications and Allergies Medications and Allergies Allergies Allergy/AdvReac Type Severity Reaction Status Date / Time No Known Allergies Allergy Unverified 09/05/21 22:34 Home Medications Medication Instructions Recorded Confirmed Last Taken Type AtorvaSTATin [Lipitor] 20 mg PO HS 09/06/21 09/06/21 Unknown History Cetirizine HCl 10 mg PO DAILY 09/06/21 09/06/21 Unknown History Escitalopram [Lexapro] 10 mg PO DAILY 09/06/21 09/06/21 Unknown History Losartan Potassium 100 mg PO DAILY 09/06/21 09/06/21 Unknown History allopurinoL [Zyloprim] 100 mg PO DAILY 09/06/21 09/06/21 Unknown History busPIRone [Buspar] 5 mg PO DAILY 09/06/21 09/06/21 Unknown History cloNIDine [Catapres] 0.1 mg PO BID 09/06/21 09/06/21 Unknown History Active Meds: Active Medications Allopurinol (Allopurinol 100 Mg Tab) 100 mg PO DAILY [facility] Last Admin: 09/17/21 09:27 Dose: 100 mg Aripiprazole (Aripiprazole 5 Mg Tab) 5 mg PO QDAY [facility] Last Admin: 09/17/21 09:27 Dose: 5 mg Atorvastatin Calcium (Atorvastatin 20 Mg Tab) 20 mg PO HS [facility] Last Admin: 09/17/21 21:03 Dose: 20 mg Buspirone HCl (Buspirone 5 Mg Tab) 5 mg PO DAILY [facility] Last Admin: 09/17/21 09:27 Dose: 5 mg Cetirizine HCl (Cetirizine 10 Mg Tab) 10 mg PO DAILY [facility] Last Admin: 09/17/21 09:27 Dose: 10 mg Divalproex Sodium (Divalproex Dr 250 Mg Tab) 250 mg PO BID [facility] Last Admin: 09/17/21 21:03 Dose: 250 mg Escitalopram Oxalate (Escitalopram 10 Mg Tab) 20 mg PO QDAY [facility] Last Admin: 09/17/21 09:27 Dose: 20 mg Metformin HCl (Metformin 500 Mg Tab) 500 mg PO BIDDIAB [facility] Last Admin: 09/18/21 07:56 Dose: Not Given Nifedipine (Nifedipine Xl 30 Mg Tab) 30 mg PO QDAY [facility] Last Admin: 09/17/21 09:27 Dose: 30 mg Trazodone HCl (Trazodone 50 Mg Tab) 50 mg PO QHS [facility] Last Admin: 09/17/21 21:03 Dose: 50 mg Ziprasidone (Ziprasidone Mesylate 20 Mg Vial) 10 mg IM Q4H PRN PRN Reason: Agitation Results - Results Labs/Vitals: Laboratory Last Values WBC 9.5 K/mm3 (4.5-11.0) 09/06/21 13:24 RBC 3.76 M/mm3 (3.65-5.03) 09/06/21 13:24 Hgb 11.6 gm/dl (10.1-14.3) 09/06/21 13:24 Hct 35.2 % (30.3-42.9) 09/06/21 13:24 MCV 94 fl (79-97) 09/06/21 13:24 MCH 31 pg (28-32) 09/06/21 13:24 MCHC 33 % (30-34) 09/06/21 13:24 RDW 14.1 % (13.2-15.2) 09/06/21 13:24 Plt Count 210 K/mm3 (140-440) 09/06/21 13:24 Lymph % (Auto) 19.3 % (13.4-35.0) 09/06/21 13:24 [place] % (Auto) 5.2 % (0.0-7.3) 09/06/21 13:24 Eos % (Auto) 1.7 % (0.0-4.3) 09/06/21 13:24 Baso % (Auto) 0.5 % (0.0-1.8) 09/06/21 13:24 Lymph # (Auto) 1.8 K/mm3 (1.2-5.4) 09/06/21 13:24 [place] # (Auto) 0.5 K/mm3 (0.0-0.8) 09/06/21 13:24 Eos # (Auto) 0.2 K/mm3 (0.0-0.4) 09/06/21 13:24 Baso # (Auto) 0.0 K/mm3 (0.0-0.1) 09/06/21 13:24 Seg Neutrophils % 73.3 % (40.0-70.0) H 09/06/21 13:24 Seg Neutrophils # 6.9 K/mm3 (1.8-7.7) 09/06/21 13:24 Sodium 133 mmol/L (137-145) L 09/06/21 13:24 Potassium 4.8 mmol/L (3.6-5.0) 09/06/21 13:24 Chloride 102.4 mmol/L (98-107) 09/06/21 13:24 Carbon Dioxide 20 mmol/L (22-30) L 09/06/21 13:24 Anion Gap 15 mmol/L 09/06/21 13:24 BUN 30 mg/dL (7-17) H 09/06/21 13:24 Creatinine 1.5 mg/dL (0.6-1.2) H 09/06/21 13:24 Estimated GFR 35 ml/min 09/06/21 13:24 BUN/Creatinine Ratio 20 % 09/06/21 13:24 Glucose 156 mg/dL (65-100) H 09/06/21 13:24 POC Glucose 88 mg/dL (70-105) 09/17/21 06:54 Hemoglobin A1c 6.7 % (4-6) H 09/06/21 13:24 Calcium 9.3 mg/dL (8.4-10.2) 09/06/21 13:24 Total Bilirubin 0.60 mg/dL (0.1-1.2) 09/06/21 13:24 AST 21 units/L (5-40) 09/06/21 13:24 ALT 10 units/L (7-56) 09/06/21 13:24 Alkaline Phosphatase 49 units/L (35-129) 09/06/21 13:24 Total Protein 7.1 g/dL (6.3-8.2) 09/06/21 13:24 Albumin 2.5 g/dL (3.9-5) L 09/06/21 13:24 Albumin/Globulin Ratio 0.5 % 09/06/21 13:24 Triglycerides 118 mg/dL (2-149) 09/06/21 13:24 Cholesterol 178 mg/dL (50-199) 09/06/21 13:24 LDL Cholesterol Direct 105 mg/dL (50-130) 09/06/21 13:24 HDL Cholesterol 60 mg/dL (40-59) H 09/06/21 13:24 Cholesterol/HDL Ratio 2.96 % 09/06/21 13:24 TSH 0.454 mlU/mL (0.270-4.200) 09/06/21 13:24 Last Vital Signs Temp 98.1 F 09/17/21 22:00 Pulse 77 09/17/21 22:00 Resp 18 09/17/21 22:00 BP 117/57 09/17/21 22:00 Pulse Ox 96 09/17/21 22:00
[2021-09-18] MEDS: NIFEdipine XL 30 MG TAB PO SCH (10:13)
[2021-09-18] MEDS: CETIRIZINE 10 MG TAB PO SCH (10:14)
[2021-09-18] MEDS: ESCITALOPRAM 10 MG TAB PO SCH (10:14)
[2021-09-18] MEDS: ARIPiprazole 5 MG TAB PO SCH (10:14)
[2021-09-18] MEDS: busPIRone 5 MG TAB PO SCH (10:14)
[2021-09-18] MEDS: allopurinoL 100 MG TAB PO SCH (10:14)
[2021-09-18] MEDS: DIVALPROEX DR 250 MG TAB PO SCH ×2 (10:14→21:37)
--- NOTE | 2021-09-18 11:07 | Progress Note ---
Assessment and Plan - Patient Problems (1) Vascular dementia with behavioral disturbance Current Visit: Yes Status: Acute Plan to address problem: Verbal prompting, verbal redirection, benzodiazepine therapy as clinically indicated. (2) Cerebral atherosclerosis Current Visit: Yes Status: Acute Plan to address problem: Risk factor reduction, antiplatelet therapy as clinically indicated. (3) Obesity hypoventilation syndrome Current Visit: Yes Status: Acute Plan to address problem: Balanced diet, increase physical activity discharge, outpatient pulmonary fo llow-up for sleep study. (4) Acute psychosis Current Visit: Yes Status: Acute Plan to address problem: Supportive care, continue medical management (5) Hypertension Current Visit: Yes Status: Acute Qualifiers: Hypertension type: primary hypertension Qualified Code(s): I10 - Essential (primary) hypertension Plan to address problem: Monitor blood pressure every shift, continue medical management (6) Hyperlipidemia Current Visit: Yes Status: Acute Qualifiers: Hyperlipidemia type: mixed hyperlipidemia Qualified Code(s): E78.2 - Mixed hyperlipidemia Plan to address problem: Low-cholesterol diet, supportive care, (7) Seasonal allergies Current Visit: Yes Status: Acute Plan to address problem: Continue oral antihistamine therapy as clinically indicated. (8) Advance care planning Current Visit: Yes Status: Acute Plan to address problem: Disease education conducted, care plan discussed, diagnoses discussed, prognosis discussed, patient is full code. Patient acknowledges understanding and agreeme nt with care plan, +30 minutes. History Interval history: 65 YO Female with Vascular Dementia with Behavioral Disturbance, Cerebral Atherosclerosis, HTN, HLD, Gout, Seasonal Allergies, Acute Psychosis admitted to [facility] for psychiatric stabilization. Consult placed with Dr. Pulido for medical management. Patient seen and evaluated in the recreation room. Patient resting comfortably. No reported nursing events. Patient denies pain. Patient is currently at baseline level of cognition and function. Hospitalist Physical - Constitutional Vitals: Temp Pulse Resp BP Pulse Ox 98.1 F 77 18 117/57 96 09/17/21 22:00 09/17/21 22:00 09/17/21 22:00 09/17/21 22:00 09/17/21 22:00 General appearance: Present: no acute distress, well-nourished, obese - EENT Eyes: Present: PERRL ENT: hearing decreased - Neck Neck: Present: supple - Respiratory Respiratory effort: normal Respiratory: bilateral: CTA - Cardiovascular Rhythm: regular Heart Sounds: Present: S1 & S2 - Extremities Extremities: no ischemia Peripheral Pulses: within normal limits - Abdominal General gastrointestinal: soft, non-tender, non-distended - Integumentary Integumentary: Present: clear, erythema - Psychiatric Psychiatric: cooperative - Neurologic Neurologic: CNII-XII intact Results - Labs CBC & Chem 7: 09/06/21 13:24 09/06/21 13:24 Labs: Laboratory Last Values WBC 9.5 K/mm3 (4.5-11.0) 09/06/21 13:24 RBC 3.76 M/mm3 (3.65-5.03) 09/06/21 13:24 Hgb 11.6 gm/dl (10.1-14.3) 09/06/21 13:24 Hct 35.2 % (30.3-42.9) 09/06/21 13:24 MCV 94 fl (79-97) 09/06/21 13:24 MCH 31 pg (28-32) 09/06/21 13:24 MCHC 33 % (30-34) 09/06/21 13:24 RDW 14.1 % (13.2-15.2) 09/06/21 13:24 Plt Count 210 K/mm3 (140-440) 09/06/21 13:24 Lymph % (Auto) 19.3 % (13.4-35.0) 09/06/21 13:24 [place] % (Auto) 5.2 % (0.0-7.3) 09/06/21 13:24 Eos % (Auto) 1.7 % (0.0-4.3) 09/06/21 13:24 Baso % (Auto) 0.5 % (0.0-1.8) 09/06/21 13:24 Lymph # (Auto) 1.8 K/mm3 (1.2-5.4) 09/06/21 13:24 [place] # (Auto) 0.5 K/mm3 (0.0-0.8) 09/06/21 13:24 Eos # (Auto) 0.2 K/mm3 (0.0-0.4) 09/06/21 13:24 Baso # (Auto) 0.0 K/mm3 (0.0-0.1) 09/06/21 13:24 Seg Neutrophils % 73.3 % (40.0-70.0) H 09/06/21 13:24 Seg Neutrophils # 6.9 K/mm3 (1.8-7.7) 09/06/21 13:24 Sodium 133 mmol/L (137-145) L 09/06/21 13:24 Potassium 4.8 mmol/L (3.6-5.0) 09/06/21 13:24 Chloride 102.4 mmol/L (98-107) 09/06/21 13:24 Carbon Dioxide 20 mmol/L (22-30) L 09/06/21 13:24 Anion Gap 15 mmol/L 09/06/21 13:24 BUN 30 mg/dL (7-17) H 09/06/21 13:24 Creatinine 1.5 mg/dL (0.6-1.2) H 09/06/21 13:24 Estimated GFR 35 ml/min 09/06/21 13:24 BUN/Creatinine Ratio 20 % 09/06/21 13:24 Glucose 156 mg/dL (65-100) H 09/06/21 13:24 POC Glucose 107 mg/dL (70-105) H 09/18/21 06:12 Hemoglobin A1c 6.7 % (4-6) H 09/06/21 13:24 Calcium 9.3 mg/dL (8.4-10.2) 09/06/21 13:24 Total Bilirubin 0.60 mg/dL (0.1-1.2) 09/06/21 13:24 AST 21 units/L (5-40) 09/06/21 13:24 ALT 10 units/L (7-56) 09/06/21 13:24 Alkaline Phosphatase 49 units/L (35-129) 09/06/21 13:24 Total Protein 7.1 g/dL (6.3-8.2) 09/06/21 13:24 Albumin 2.5 g/dL (3.9-5) L 09/06/21 13:24 Albumin/Globulin Ratio 0.5 % 09/06/21 13:24 Triglycerides 118 mg/dL (2-149) 09/06/21 13:24 Cholesterol 178 mg/dL (50-199) 09/06/21 13:24 LDL Cholesterol Direct 105 mg/dL (50-130) 09/06/21 13:24 HDL Cholesterol 60 mg/dL (40-59) H 09/06/21 13:24 Cholesterol/HDL Ratio 2.96 % 09/06/21 13:24 TSH 0.454 mlU/mL (0.270-4.200) 09/06/21 13:24 [place]/IV: Voiding Method Toilet Active Medications - Current Medications Current Medications: Generic Name Dose Route Start Last Admin Trade Name Freq PRN Reason Stop Dose Admin Allopurinol 100 mg 09/06/21 10:00 09/18/21 10:14 Allopurinol 100 Mg Tab PO 100 mg DAILY VANESSA Administration Aripiprazole 5 mg 09/12/21 11:00 09/18/21 10:14 Aripiprazole 5 Mg Tab PO 5 mg QDAY VANESSA Administration Atorvastatin Calcium 20 mg 09/06/21 22:00 09/17/21 21:03 Atorvastatin 20 Mg Tab PO 20 mg HS VANESSA Administration Buspirone HCl 5 mg 09/06/21 10:00 09/18/21 10:14 Buspirone 5 Mg Tab PO 5 mg DAILY VANESSA Administration Cetirizine HCl 10 mg 09/06/21 10:00 09/18/21 10:14 Cetirizine 10 Mg Tab PO 10 mg DAILY VANESSA Administration Divalproex Sodium 250 mg 09/13/21 10:00 09/18/21 10:[address] 250 Mg Tab PO 250 mg BID VANESSA Administration Escitalopram Oxalate 20 mg 09/07/21 10:00 09/18/21 10:14 Escitalopram 10 Mg Tab PO 20 mg QDAY VANESSA Administration Metformin HCl 500 mg 09/07/21 10:00 09/18/21 07:56 Metformin 500 Mg Tab PO Not Given BIDDIAB VANESSA Nifedipine 30 mg 09/09/21 10:00 09/18/21 10:13 Nifedipine Xl 30 Mg Tab PO Not Given QDAY VANESSA Trazodone HCl 50 mg 09/06/21 22:00 09/17/21 21:03 Trazodone 50 Mg Tab PO 50 mg QHS VANESSA Administration Ziprasidone 10 mg 09/10/21 11:00 Ziprasidone Mesylate 20 Mg Vial IM Q4H PRN Agitation Nutrition/Malnutrition Assess - Dietary Evaluation Nutrition/Malnutrition Findings: Nutrition Notes Start: 09/08/21 14:14 Freq: Status: Active Protocol: Document 09/12/21 14:58 GUY (Rec: 09/12/21 15:16 GUY [id number]) Nutrition Notes Need for Assessment generated from: LOS Initial or Follow up Assessment Current Diagnosis CKD(stage I-IV),Diabetes, Hypertension,Malnutrition, Hyperlipidemia Other Pertinent Diagnosis Major Depressive Disorder, Delusional Disorder, Allergic Rhinitis, Gout ... Current Diet Cardiac/Consistent Carbohydrates Diet (since ), D Suppl (09/08). Labs/Tests 09/12: N/A, HbA1c 6.7%. Pertinent Medications 09/12: Nutritionally unremarkable. Height 5 ft 10 in Weight 122.47 kg [place] Body Weight (kg) 68.18 BMI 38.7 Weight change and time frame No body weight reported in 4 days. Weight Status Obese Subjective/Other Information RD consult for LOS assessment. Pt's PO intake of meals and ONS has been changing on a daily basis from 0% to 100% depending on Pt's mood and appetite, according to ADL notes. Pt lives with family. Percent of energy/protein needs met: Prescribed Cardiac/Consistent Carbohydrates Diet provides for energy/protein needs (1, 977 Kcal/86 g) during LOS. Burn Absent Trauma Absent GI Symptoms None Food Allergy No Skin Integrity/Comment Assessment WNL. Current % PO Other Minimum of two criteria No #1 Nutrition Diagnosis No nutrition diagnosis at this time Is patient on ventilator? No Is Patient Ambulatory and/or Out of Bed Yes REE-([facility]-ambulatory/OOB) [ 2398.435 NUTR.MSJOOB] Kcal/Kg value to use for calculation 17 Approximate Energy Requirements Using 2 kcal/Kg Calculation Used for Recommendations Kcal/kg Additional Notes Protein: 0.6-0.8 g/Kg AdjBW; 57-76 g/day. Fluids: 1 ml/Kcal, or as per MD. Nutrition Intervention Revisit per MD consult or patient Sign Off request: Additional Comments Continue monitoring food tolerance, %PO intake of meals , and BM.
[2021-09-18] MEDS: traZODone 50 MG TAB PO SCH (21:37)
[2021-09-19] MEDS: metFORMIN 500 MG TAB PO SCH ×2 (08:57→16:45)
--- NOTE | 2021-09-19 09:09 | Discharge Summary ---
Providers - Providers Date of Admission: 09/05/21 23:47 Date of discharge: 09/19/21 Attending physician: JEANNE RENEE MD 09/05/21 22:34 Consult to Physician [CONS] Routine Comment: Consulting Provider: LINDA BARROW Physician Instructions: Reason For Exam: management of medical problems 09/07/21 21:01 Consult to Dietitian/Nutrition [CONS] Routine Physician Instructions: Reason For Exam: Reason for Consult: Malnutrition 09/15/21 08:45 [place] [facility] Consult Order [CONS] ONCE Comment: Consulting Provider: Reason For Exam: Mini mental total score of 3 Primary care physician: BALLISTICIAN Hospitalization Reason for admission: Delusions Admitting Diagnosis: F33.9 - MAJOR DEPRESSIVE DISORDER, RECURRENT, UNSPECIFIED Condition: Stable Hospital course: The patient was provided inpatient psychiatric treatment with safe and supportive environment, group/individual therapy, psychiatric medication, medication adjustment, adverse effect monitor, medical evaluation, medical treatment, social service assessment, social support meeting, placement assessment and psycho-education. The patients mood, cognition, behavior, motivation, compliance to treatment and appreciation on family/social support are improved and stabilized. At the time of discharge, the patient had no suicidal ideas, no homicidal ideas, no aggressive thoughts, no endangering behavior and no debilitating adverse effects. The patient agreed on the treatment plan, understood the risk, benefit, alternative treatment, potential consequence of no treatment, and gave informed consent. Progress Note: 09/18/21:The patient was seen today. The patient states she is doing okay. She reports sleep and appetite as good. She denies any current suicidal/homicidal ideation and denies hallucinations. 09/17/21: The patient was seen today. She is pleasant. The patient states she is doing well. She reports sleep and appetite as good. She denies any current suicidal/homicidal ideation and denies hallucinations. 09/16/21: The patient was seen today.The patient states she is doing well. She is lucid. She denies any current suicidal/homicidal ideation and denies hallucinations. 09/15/21:The patient was seen today.The patient states she is feeling better. " I did not kill my family right? then I'm good." She denies any current suicidal/homicidal ideation and denies hallucinations. 09/14/21: The patient was seen today. She presents with flat affect; the patient continues to endorse depression rates as 10/10. She reports suicidal ideation with no plan " I wish somebody can do it for me and get it over with." She endorses hallucinations "voices saying I killed my family." 09/13/21:The patient was seen today. She is sitting off to herself. She appears down. The patient says "I'm just here." She verbalizes feeling depressed and suicidal. She denies hallucinations. 09/12 The patient was seen today. She is in the dayroom with her head down. She easily arouses. She says "I'm just here." She verbalizes feeling depressed. I ask the patient why is she depressed, she replies "you know why." The patient says "I don't really want to live." She then says "I don't want to talk about it." 09/11 The patient was seen today. Staff and hospitalist with the patient. The patient's BP was initially low, but has normalized now. The patient was taken to the day room, she is shaking and asking to go back to bed. She is irritable and acting bizarre. I touch her and she shakes vigorously and tells me not to touch her. She says "I don't feel good." I ask the patient why she didn't feel good, she says "put me in my room. That chair is nasty." She refused to answer if she was having hallucinations or feeling suicidal. She says "Shhhhhh, I want to go to my room." 09/10 The patient was seen today. She is lying in bed awake. Her thoughts are disorganized. The patient is acting bizarre. She is staring at the ceiling with her right arm stuck out. She says "my arm is still on the plane." She says "they are smoking on the plane." The patient says "my body is still on this plane. Get out of here." She says "get out of here." The patient then stops talking. 09/09 The patient was seen today. She is sleeping. She is irritable at me waking her up. She tells me to "shhhhhh" to silence me. She verbalizes being depressed. She says "I don't want to talk about it," when asking her was she suicidal. The nurse says the patient was given Geodon prn and it just started to take affect this morning. Nurse note states the patient was agitated, combative and hallucinating. 09/08 The patient was seen today. She is sitting in the dayroom. She is paranoid and delusional. She appears withdrawn. The patient says she is depressed. She then says "I killed my whole family, remember?" I tell the patient that none of that happened. She becomes upset, and says "just don't say nothing else." She refused to speak any further. Disposition: 30 STILL A PATIENT Allergies/Adverse Reactions: Allergies No Known Allergies Allergy (Unverified 09/05/21 22:34) Vital Signs: Last Vital Signs Temp 97.3 F L 09/18/21 20:00 Pulse 84 09/18/21 20:00 Resp 16 09/18/21 20:00 BP 139/70 09/18/21 20:00 Pulse Ox 98 09/18/21 20:00 Last Lab: Laboratory Last Values WBC 9.5 K/mm3 (4.5-11.0) 09/06/21 13:24 RBC 3.76 M/mm3 (3.65-5.03) 09/06/21 13:24 Hgb 11.6 gm/dl (10.1-14.3) 09/06/21 13:24 Hct 35.2 % (30.3-42.9) 09/06/21 13:24 MCV 94 fl (79-97) 09/06/21 13:24 MCH 31 pg (28-32) 09/06/21 13:24 MCHC 33 % (30-34) 09/06/21 13:24 RDW 14.1 % (13.2-15.2) 09/06/21 13:24 Plt Count 210 K/mm3 (140-440) 09/06/21 13:24 Lymph % (Auto) 19.3 % (13.4-35.0) 09/06/21 13:24 [place] % (Auto) 5.2 % (0.0-7.3) 09/06/21 13:24 Eos % (Auto) 1.7 % (0.0-4.3) 09/06/21 13:24 Baso % (Auto) 0.5 % (0.0-1.8) 09/06/21 13:24 Lymph # (Auto) 1.8 K/mm3 (1.2-5.4) 09/06/21 13:24 [place] # (Auto) 0.5 K/mm3 (0.0-0.8) 09/06/21 13:24 Eos # (Auto) 0.2 K/mm3 (0.0-0.4) 09/06/21 13:24 Baso # (Auto) 0.0 K/mm3 (0.0-0.1) 09/06/21 13:24 Seg Neutrophils % 73.3 % (40.0-70.0) H 09/06/21 13:24 Seg Neutrophils # 6.9 K/mm3 (1.8-7.7) 09/06/21 13:24 Sodium 133 mmol/L (137-145) L 09/06/21 13:24 Potassium 4.8 mmol/L (3.6-5.0) 09/06/21 13:24 Chloride 102.4 mmol/L (98-107) 09/06/21 13:24 Carbon Dioxide 20 mmol/L (22-30) L 09/06/21 13:24 Anion Gap 15 mmol/L 09/06/21 13:24 BUN 30 mg/dL (7-17) H 09/06/21 13:24 Creatinine 1.5 mg/dL (0.6-1.2) H 09/06/21 13:24 Estimated GFR 35 ml/min 09/06/21 13:24 BUN/Creatinine Ratio 20 % 09/06/21 13:24 Glucose 156 mg/dL (65-100) H 09/06/21 13:24 POC Glucose 107 mg/dL (70-105) H 09/18/21 06:12 Hemoglobin A1c 6.7 % (4-6) H 09/06/21 13:24 Calcium 9.3 mg/dL (8.4-10.2) 09/06/21 13:24 Total Bilirubin 0.60 mg/dL (0.1-1.2) 09/06/21 13:24 AST 21 units/L (5-40) 09/06/21 13:24 ALT 10 units/L (7-56) 09/06/21 13:24 Alkaline Phosphatase 49 units/L (35-129) 09/06/21 13:24 Total Protein 7.1 g/dL (6.3-8.2) 09/06/21 13:24 Albumin 2.5 g/dL (3.9-5) L 09/06/21 13:24 Albumin/Globulin Ratio 0.5 % 09/06/21 13:24 Triglycerides 118 mg/dL (2-149) 09/06/21 13:24 Cholesterol 178 mg/dL (50-199) 09/06/21 13:24 LDL Cholesterol Direct 105 mg/dL (50-130) 09/06/21 13:24 HDL Cholesterol 60 mg/dL (40-59) H 09/06/21 13:24 Cholesterol/HDL Ratio 2.96 % 09/06/21 13:24 TSH 0.454 mlU/mL (0.270-4.200) 09/06/21 13:24 Core Measure Documentation - Palliative Care Palliative Care/ Comfort Measures: Not Applicable - Core Measures Any of the following diagnoses?: none - VTE Discharge Requirements Deep Vein Thrombosis/Pulmonary Embolism Present on Admission: No Exam - Constitutional Vitals: Temp Pulse Resp BP Pulse Ox 97.3 F L 84 16 139/70 98 09/18/21 20:00 09/18/21 20:00 09/18/21 20:00 09/18/21 20:00 09/18/21 20:00 Plan Activity: advance as tolerated Weight Bearing Status: Weight Bear as Tolerated Care Plan Goals: Maintain good and stable mental health. Plan of Treatment: The patient should be compliant with medications, not to use drugs and not to drink alcohol.The patient understands that if suicidal ideas, homicidal ideas, or any endangering thoughts/behavior arise, they should immediately seek for emergent assistance including but not limited to crisis hot line and emergency room. Follow up with outpatient Psychiatrist and PCP within 7 - 14 days of discharge. Follow up with: PRIMARY CARE,MD [Primary Care Provider] - 7 Days Prescriptions: traZODone [Desyrel] 50 mg PO QHS 30 Days #30 tablet ARIPiprazole 5 mg PO QDAY 30 Days #30 tablet busPIRone [Buspar] 5 mg PO DAILY 30 Days #[address] [Depakote Dr] 250 mg PO BID 30 Days #60 tablet Escitalopram [Lexapro] 20 mg PO QDAY 30 Days #30 tablet
[2021-09-19] MEDS: ARIPiprazole 5 MG TAB PO SCH (09:28)
[2021-09-19] MEDS: CETIRIZINE 10 MG TAB PO SCH (09:29)
[2021-09-19] MEDS: DIVALPROEX DR 250 MG TAB PO SCH ×2 (09:29→21:22)
[2021-09-19] MEDS: busPIRone 5 MG TAB PO SCH (09:29)
[2021-09-19] MEDS: ESCITALOPRAM 10 MG TAB PO SCH (09:29)
[2021-09-19] MEDS: NIFEdipine XL 30 MG TAB PO SCH (09:30)
[2021-09-19] MEDS: allopurinoL 100 MG TAB PO SCH (09:31)
--- NOTE | 2021-09-19 21:17 | Progress Note ---
Assessment and Plan - Patient Problems (1) Vascular dementia with behavioral disturbance Current Visit: Yes Status: Acute Plan to address problem: Verbal prompting, verbal redirection, benzodiazepine therapy as clinically indicated. (2) Cerebral atherosclerosis Current Visit: Yes Status: Acute Plan to address problem: Risk factor reduction, antiplatelet therapy as clinically indicated. (3) Obesity hypoventilation syndrome Current Visit: Yes Status: Acute Plan to address problem: Balanced diet, increase physical activity discharge, outpatient pulmonary fo llow-up for sleep study. (4) Acute psychosis Current Visit: Yes Status: Acute Plan to address problem: Supportive care, continue medical management (5) Hypertension Current Visit: Yes Status: Acute Qualifiers: Hypertension type: primary hypertension Qualified Code(s): I10 - Essential (primary) hypertension Plan to address problem: Monitor blood pressure every shift, continue medical management (6) Hyperlipidemia Current Visit: Yes Status: Acute Qualifiers: Hyperlipidemia type: mixed hyperlipidemia Qualified Code(s): E78.2 - Mixed hyperlipidemia Plan to address problem: Low-cholesterol diet, supportive care, (7) Seasonal allergies Current Visit: Yes Status: Acute Plan to address problem: Continue oral antihistamine therapy as clinically indicated. (8) Advance care planning Current Visit: Yes Status: Acute Plan to address problem: Disease education conducted, care plan discussed, diagnoses discussed, prognosis discussed, patient is full code. Patient acknowledges understanding and agreeme nt with care plan, +30 minutes. History Interval history: 65 YO Female with Vascular Dementia with Behavioral Disturbance, Cerebral Atherosclerosis, HTN, HLD, Gout, Seasonal Allergies, Acute Psychosis admitted to [facility] for psychiatric stabilization. Consult placed with Dr. Pulido for medical management. Patient seen and evaluated in the recreation room. Patient resting comfortably. No reported nursing events. Patient denies pain. Patient is currently at baseline level of cognition and function. Hospitalist Physical - Constitutional Vitals: Temp Pulse Resp BP Pulse Ox 98.4 F 88 16 141/70 95 09/19/21 20:23 09/19/21 20:23 09/19/21 20:23 09/19/21 20:23 09/19/21 20:23 General appearance: Present: no acute distress, well-nourished, obese - EENT Eyes: Present: PERRL ENT: hearing decreased - Neck Neck: Present: supple - Respiratory Respiratory effort: normal Respiratory: bilateral: CTA - Cardiovascular Rhythm: regular Heart Sounds: Present: S1 & S2 - Extremities Extremities: no ischemia Peripheral Pulses: within normal limits - Abdominal General gastrointestinal: soft, non-tender, non-distended - Integumentary Integumentary: Present: clear, dry - Psychiatric Psychiatric: cooperative - Neurologic Neurologic: CNII-XII intact Results - Labs CBC & Chem 7: 09/06/21 13:24 09/06/21 13:24 Labs: Laboratory Last Values WBC 9.5 K/mm3 (4.5-11.0) 09/06/21 13:24 RBC 3.76 M/mm3 (3.65-5.03) 09/06/21 13:24 Hgb 11.6 gm/dl (10.1-14.3) 09/06/21 13:24 Hct 35.2 % (30.3-42.9) 09/06/21 13:24 MCV 94 fl (79-97) 09/06/21 13:24 MCH 31 pg (28-32) 09/06/21 13:24 MCHC 33 % (30-34) 09/06/21 13:24 RDW 14.1 % (13.2-15.2) 09/06/21 13:24 Plt Count 210 K/mm3 (140-440) 09/06/21 13:24 Lymph % (Auto) 19.3 % (13.4-35.0) 09/06/21 13:24 [place] % (Auto) 5.2 % (0.0-7.3) 09/06/21 13:24 Eos % (Auto) 1.7 % (0.0-4.3) 09/06/21 13:24 Baso % (Auto) 0.5 % (0.0-1.8) 09/06/21 13:24 Lymph # (Auto) 1.8 K/mm3 (1.2-5.4) 09/06/21 13:24 [place] # (Auto) 0.5 K/mm3 (0.0-0.8) 09/06/21 13:24 Eos # (Auto) 0.2 K/mm3 (0.0-0.4) 09/06/21 13:24 Baso # (Auto) 0.0 K/mm3 (0.0-0.1) 09/06/21 13:24 Seg Neutrophils % 73.3 % (40.0-70.0) H 09/06/21 13:24 Seg Neutrophils # 6.9 K/mm3 (1.8-7.7) 09/06/21 13:24 Sodium 133 mmol/L (137-145) L 09/06/21 13:24 Potassium 4.8 mmol/L (3.6-5.0) 09/06/21 13:24 Chloride 102.4 mmol/L (98-107) 09/06/21 13:24 Carbon Dioxide 20 mmol/L (22-30) L 09/06/21 13:24 Anion Gap 15 mmol/L 09/06/21 13:24 BUN 30 mg/dL (7-17) H 09/06/21 13:24 Creatinine 1.5 mg/dL (0.6-1.2) H 09/06/21 13:24 Estimated GFR 35 ml/min 09/06/21 13:24 BUN/Creatinine Ratio 20 % 09/06/21 13:24 Glucose 156 mg/dL (65-100) H 09/06/21 13:24 POC Glucose 98 mg/dL (70-105) 09/19/21 06:42 Hemoglobin A1c 6.7 % (4-6) H 09/06/21 13:24 Calcium 9.3 mg/dL (8.4-10.2) 09/06/21 13:24 Total Bilirubin 0.60 mg/dL (0.1-1.2) 09/06/21 13:24 AST 21 units/L (5-40) 09/06/21 13:24 ALT 10 units/L (7-56) 09/06/21 13:24 Alkaline Phosphatase 49 units/L (35-129) 09/06/21 13:24 Total Protein 7.1 g/dL (6.3-8.2) 09/06/21 13:24 Albumin 2.5 g/dL (3.9-5) L 09/06/21 13:24 Albumin/Globulin Ratio 0.5 % 09/06/21 13:24 Triglycerides 118 mg/dL (2-149) 09/06/21 13:24 Cholesterol 178 mg/dL (50-199) 09/06/21 13:24 LDL Cholesterol Direct 105 mg/dL (50-130) 09/06/21 13:24 HDL Cholesterol 60 mg/dL (40-59) H 09/06/21 13:24 Cholesterol/HDL Ratio 2.96 % 09/06/21 13:24 TSH 0.454 mlU/mL (0.270-4.200) 09/06/21 13:24 [place]/IV: Voiding Method Toilet Active Medications - Current Medications Current Medications: Generic Name Dose Route Start Last Admin Trade Name Freq PRN Reason Stop Dose Admin Allopurinol 100 mg 09/06/21 10:00 09/19/21 09:31 Allopurinol 100 Mg Tab PO 100 mg DAILY VANESSA Administration Aripiprazole 5 mg 09/12/21 11:00 09/19/21 09:28 Aripiprazole 5 Mg Tab PO 5 mg QDAY VANESSA Administration Atorvastatin Calcium 20 mg 09/06/21 22:00 09/18/21 21:36 Atorvastatin 20 Mg Tab PO 20 mg HS VANESSA Administration Buspirone HCl 5 mg 09/06/21 10:00 09/19/21 09:29 Buspirone 5 Mg Tab PO 5 mg DAILY VANESSA Administration Cetirizine HCl 10 mg 09/06/21 10:00 09/19/21 09:29 Cetirizine 10 Mg Tab PO 10 mg DAILY VANESSA Administration Divalproex Sodium 250 mg 09/13/21 10:00 09/19/21 09:[address] 250 Mg Tab PO 250 mg BID VANESSA Administration Escitalopram Oxalate 20 mg 09/07/21 10:00 09/19/21 09:29 Escitalopram 10 Mg Tab PO 20 mg QDAY VANESSA Administration Metformin HCl 500 mg 09/07/21 10:00 09/19/21 16:45 Metformin 500 Mg Tab PO 500 mg BIDDIAB VANESSA Administration Nifedipine 30 mg 09/09/21 10:00 09/19/21 09:30 Nifedipine Xl 30 Mg Tab PO 30 mg QDAY VANESSA Administration Trazodone HCl 50 mg 09/06/21 22:00 09/18/21 21:37 Trazodone 50 Mg Tab PO 50 mg QHS VANESSA Administration Ziprasidone 10 mg 09/10/21 11:00 Ziprasidone Mesylate 20 Mg Vial IM Q4H PRN Agitation Nutrition/Malnutrition Assess - Dietary Evaluation Nutrition/Malnutrition Findings: Nutrition Notes Start: 09/08/21 14:14 Freq: Status: Active Protocol: Document 09/12/21 14:58 GUY (Rec: 09/12/21 15:16 GUY [id number]) Nutrition Notes Need for Assessment generated from: LOS Initial or Follow up Assessment Current Diagnosis CKD(stage I-IV),Diabetes, Hypertension,Malnutrition, Hyperlipidemia Other Pertinent Diagnosis Major Depressive Disorder, Delusional Disorder, Allergic Rhinitis, Gout ... Current Diet Cardiac/Consistent Carbohydrates Diet (since ), D Suppl (09/08). Labs/Tests 09/12: N/A, HbA1c 6.7%. Pertinent Medications 09/12: Nutritionally unremarkable. Height 5 ft 10 in Weight 122.47 kg Leonard Body Weight (kg) 68.18 BMI 38.7 Weight change and time frame No body weight reported in 4 days. Weight Status Obese Subjective/Other Information RD consult for LOS assessment. Pt's PO intake of meals and ONS has been changing on a daily basis from 0% to 100% depending on Pt's mood and appetite, according to ADL notes. Pt lives with family. Percent of energy/protein needs met: Prescribed Cardiac/Consistent Carbohydrates Diet provides for energy/protein needs (1, 977 Kcal/86 g) during LOS. Burn Absent Trauma Absent GI Symptoms None Food Allergy No Skin Integrity/Comment Assessment WNL. Current % PO Other Minimum of two criteria No #1 Nutrition Diagnosis No nutrition diagnosis at this time Is patient on ventilator? No Is Patient Ambulatory and/or Out of Bed Yes REE-([facility]-ambulatory/OOB) [ 2398.435 NUTR.[id number]] Kcal/Kg value to use for calculation 17 Approximate Energy Requirements Using 2 kcal/Kg Calculation Used for Recommendations Kcal/kg Additional Notes Protein: 0.6-0.8 g/Kg AdjBW; 57-76 g/day. Fluids: 1 ml/Kcal, or as per MD. Nutrition Intervention Revisit per MD consult or patient Sign Off request: Additional Comments Continue monitoring food tolerance, %PO intake of meals , and BM.
[2021-09-19] MEDS: traZODone 50 MG TAB PO SCH (21:22)
[2021-09-20] MEDS: busPIRone 5 MG TAB PO SCH (09:18)
[2021-09-20] MEDS: NIFEdipine XL 30 MG TAB PO SCH (09:18)
[2021-09-20] MEDS: metFORMIN 500 MG TAB PO SCH ×2 (09:18→16:28)
[2021-09-20] MEDS: allopurinoL 100 MG TAB PO SCH (09:18)
[2021-09-20] MEDS: ARIPiprazole 5 MG TAB PO SCH (09:18)
[2021-09-20] MEDS: CETIRIZINE 10 MG TAB PO SCH (09:18)
[2021-09-20] MEDS: ESCITALOPRAM 10 MG TAB PO SCH (09:18)
[2021-09-20] MEDS: DIVALPROEX DR 250 MG TAB PO SCH ×2 (09:18→21:45)
--- NOTE | 2021-09-20 09:31 | Progress Note ---
Subjective Date of service: 09/20/21 Principal diagnosis: Major Depressive Disorder Subjective Comment: 09/20/21:The patient was seen today. The patient states she is doing fine but states she is tired of waiting. She reports sleep and appetite as good. She denies any current suicidal/homicidal ideation and denies hallucinations. The patient is clear from psych point of view. 09/18/21:The patient was seen today. The patient states she is doing okay. She reports sleep and appetite as good. She denies any current suicidal/homicidal ideation and denies hallucinations. 09/17/21: The patient was seen today. She is pleasant. The patient states she is doing well. She reports sleep and appetite as good. She denies any current suicidal/homicidal ideation and denies hallucinations. 09/16/21: The patient was seen today.The patient states she is doing well. She is lucid. She denies any current suicidal/homicidal ideation and denies hallucinations. 09/15/21:The patient was seen today.The patient states she is feeling better. " I did not kill my family right? then I'm good." She denies any current suicidal/homicidal ideation and denies hallucinations. 09/14/21: The patient was seen today. She presents with flat affect; the patient continues to endorse depression rates as 10/10. She reports suicidal ideation with no plan " I wish somebody can do it for me and get it over with." She endorses hallucinations "voices saying I killed my family." 09/13/21:The patient was seen today. She is sitting off to herself. She appears down. The patient says "I'm just here." She verbalizes feeling depressed and suicidal. She denies hallucinations. 09/12 The patient was seen today. She is in the dayroom with her head down. She easily arouses. She says "I'm just here." She verbalizes feeling depressed. I ask the patient why is she depressed, she replies "you know why." The patient says "I don't really want to live." She then says "I don't want to talk about it." 09/11 The patient was seen today. Staff and hospitalist with the patient. The patient's BP was initially low, but has normalized now. The patient was taken to the day room, she is shaking and asking to go back to bed. She is irritable and acting bizarre. I touch her and she shakes vigorously and tells me not to touch her. She says "I don't feel good." I ask the patient why she didn't feel good, she says "put me in my room. That chair is nasty." She refused to answer if she was having hallucinations or feeling suicidal. She says "Shhhhhh, I want to go to my room." 09/10 The patient was seen today. She is lying in bed awake. Her thoughts are disorganized. The patient is acting bizarre. She is staring at the ceiling with her right arm stuck out. She says "my arm is still on the plane." She says "they are smoking on the plane." The patient says "my body is still on this plane. Get out of here." She says "get out of here." The patient then stops talking. 09/09 The patient was seen today. She is sleeping. She is irritable at me waking her up. She tells me to "shhhhhh" to silence me. She verbalizes being depressed. She says "I don't want to talk about it," when asking her was she suicidal. The nurse says the patient was given Geodon prn and it just started to take affect this morning. Nurse note states the patient was agitated, combative and hallucinating. 09/08 The patient was seen today. She is sitting in the dayroom. She is paranoid and delusional. She appears withdrawn. The patient says she is depressed. She then says "I killed my whole family, remember?" I tell the patient that none of that happened. She becomes upset, and says "just don't say nothing else." She refused to speak any further. REVIEW OF SYSTEMS Constitutional: Negative for weight loss ENT: Negative for stridor Respiratory: Negative for cough or hemoptysis All other systems reviewed and are negative MENTAL STATUS EXAMINATION General Appearance and Behavior: Age appropriate, good hygiene, wearing appropriate clothes, good eye contact, calm, cooperative Cooperation: Participating/engaged, but Guarded Psychomotor Behavior: Psychomotor normal Mood:OK Affect and affective range: congruent Thought Process: Goal directed Thought Content: Reality oriented Speech: normal tone and pace Suicidal Ideation: Denies Homicidal Ideation: Denies Hallucinations: Denies Delusions: None elicited Impulse Control: Limited Insight and Judgment: Limited insight and judgment Memory: Limited Attention: attentive Orientation: Alert, oriented Assessment and Plan Delusional disorder Treatment Plan Patient admitted for inpatient psychiatric evaluation, medication adjustment and close monitoring The patient's behavior, mood, sleep and appetite will be closely monitored. Patient enrolled in individual and group therapeutic sessions and encouraged to attend. Patient provided with a safe and structured environment. Patient's physical health needs will be addressed by the Hospitalist. Hospitalist Consulted Labs including CBC, CMP, Lipid profile and Hemoglobin A1C levels ordered for baseline reference Social Assessment will be completed and the Crm Specialist will work with patient and family to ensure a suitable and safe disposition Medication adjustment will be made as clinically indicated Continue Abilify 5mg po daily Continue Depakote DR 250mg po BID Usual Wellness Orthodox/Preservation: - Start Trazodone 50 mg po QHS & 50 mg po QHS PRN between 10 PM & 2 AM for insomnia - Start Melatonin 5 mg po QHS to promote circadian rhythm The patient agreed on the treatment plan, understood the risk, benefit, alternative treatment, potential consequence of no treatment, and gave informed consent. Estimated days: 0 Post hospital care: primary care provider, psychiatric provider Case staffed with Dr. Christopher Medications and Allergies Medications and Allergies Allergies Allergy/AdvReac Type Severity Reaction Status Date / Time No Known Allergies Allergy Unverified 09/05/21 22:34 Home Medications Medication Instructions Recorded Confirmed Last Taken Type AtorvaSTATin [Lipitor] 20 mg PO HS 09/06/21 09/06/21 Unknown History Cetirizine HCl 10 mg PO DAILY 09/06/21 09/06/21 Unknown History Losartan Potassium 100 mg PO DAILY 09/06/21 09/06/21 Unknown History allopurinoL [Zyloprim] 100 mg PO DAILY 09/06/21 09/06/21 Unknown History cloNIDine [Catapres] 0.1 mg PO BID 09/06/21 09/06/21 Unknown History ARIPiprazole 5 mg PO QDAY 30 Days #30 tablet 09/19/[address] [Depakote Dr] 250 mg PO BID 30 Days #60 tablet 09/19/21 Unknown Rx Escitalopram [Lexapro] 20 mg PO QDAY 30 Days #30 tablet 09/19/21 Unknown Rx NIFEdipine XL [Procardia Xl] 30 mg PO QDAY tablet 09/19/21 Unknown Rx busPIRone [Buspar] 5 mg PO DAILY 30 Days #30 09/19/21 Unknown Rx metFORMIN [Glucophage] 500 mg PO BIDDIAB tablet 09/19/21 Unknown Rx traZODone [Desyrel] 50 mg PO QHS 30 Days #30 tablet 09/19/21 Unknown Rx Active Meds: Active Medications Allopurinol (Allopurinol 100 Mg Tab) 100 mg PO DAILY [facility] Last Admin: 09/20/21 09:18 Dose: 100 mg Aripiprazole (Aripiprazole 5 Mg Tab) 5 mg PO QDAY [facility] Last Admin: 09/20/21 09:18 Dose: 5 mg Atorvastatin Calcium (Atorvastatin 20 Mg Tab) 20 mg PO HS [facility] Last Admin: 09/19/21 21:22 Dose: 20 mg Buspirone HCl (Buspirone 5 Mg Tab) 5 mg PO DAILY [facility] Last Admin: 09/20/21 09:18 Dose: 5 mg Cetirizine HCl (Cetirizine 10 Mg Tab) 10 mg PO DAILY [facility] Last Admin: 09/20/21 09:18 Dose: 10 mg Divalproex Sodium (Divalproex Dr 250 Mg Tab) 250 mg PO BID [facility] Last Admin: 09/20/21 09:18 Dose: 250 mg Escitalopram Oxalate (Escitalopram 10 Mg Tab) 20 mg PO QDAY [facility] Last Admin: 09/20/21 09:18 Dose: 20 mg Metformin HCl (Metformin 500 Mg Tab) 500 mg PO BIDDIAB [facility] Last Admin: 09/20/21 09:18 Dose: 500 mg Nifedipine (Nifedipine Xl 30 Mg Tab) 30 mg PO QDAY [facility] Last Admin: 09/20/21 09:18 Dose: 30 mg Trazodone HCl (Trazodone 50 Mg Tab) 50 mg PO QHS [facility] Last Admin: 09/19/21 21:22 Dose: 50 mg Ziprasidone (Ziprasidone Mesylate 20 Mg Vial) 10 mg IM Q4H PRN PRN Reason: Agitation Results - Results Labs/Vitals: Laboratory Last Values WBC 9.5 K/mm3 (4.5-11.0) 09/06/21 13:24 RBC 3.76 M/mm3 (3.65-5.03) 09/06/21 13:24 Hgb 11.6 gm/dl (10.1-14.3) 09/06/21 13:24 Hct 35.2 % (30.3-42.9) 09/06/21 13:24 MCV 94 fl (79-97) 09/06/21 13:24 MCH 31 pg (28-32) 09/06/21 13:24 MCHC 33 % (30-34) 09/06/21 13:24 RDW 14.1 % (13.2-15.2) 09/06/21 13:24 Plt Count 210 K/mm3 (140-440) 09/06/21 13:24 Lymph % (Auto) 19.3 % (13.4-35.0) 09/06/21 13:24 [place] % (Auto) 5.2 % (0.0-7.3) 09/06/21 13:24 Eos % (Auto) 1.7 % (0.0-4.3) 09/06/21 13:24 Baso % (Auto) 0.5 % (0.0-1.8) 09/06/21 13:24 Lymph # (Auto) 1.8 K/mm3 (1.2-5.4) 09/06/21 13:24 [place] # (Auto) 0.5 K/mm3 (0.0-0.8) 09/06/21 13:24 Eos # (Auto) 0.2 K/mm3 (0.0-0.4) 09/06/21 13:24 Baso # (Auto) 0.0 K/mm3 (0.0-0.1) 09/06/21 13:24 Seg Neutrophils % 73.3 % (40.0-70.0) H 09/06/21 13:24 Seg Neutrophils # 6.9 K/mm3 (1.8-7.7) 09/06/21 13:24 Sodium 133 mmol/L (137-145) L 09/06/21 13:24 Potassium 4.8 mmol/L (3.6-5.0) 09/06/21 13:24 Chloride 102.4 mmol/L (98-107) 09/06/21 13:24 Carbon Dioxide 20 mmol/L (22-30) L 09/06/21 13:24 Anion Gap 15 mmol/L 09/06/21 13:24 BUN 30 mg/dL (7-17) H 09/06/21 13:24 Creatinine 1.5 mg/dL (0.6-1.2) H 09/06/21 13:24 Estimated GFR 35 ml/min 09/06/21 13:24 BUN/Creatinine Ratio 20 % 09/06/21 13:24 Glucose 156 mg/dL (65-100) H 09/06/21 13:24 POC Glucose 108 mg/dL (70-105) H 09/20/21 06:28 Hemoglobin A1c 6.7 % (4-6) H 09/06/21 13:24 Calcium 9.3 mg/dL (8.4-10.2) 09/06/21 13:24 Total Bilirubin 0.60 mg/dL (0.1-1.2) 09/06/21 13:24 AST 21 units/L (5-40) 09/06/21 13:24 ALT 10 units/L (7-56) 09/06/21 13:24 Alkaline Phosphatase 49 units/L (35-129) 09/06/21 13:24 Total Protein 7.1 g/dL (6.3-8.2) 09/06/21 13:24 Albumin 2.5 g/dL (3.9-5) L 09/06/21 13:24 Albumin/Globulin Ratio 0.5 % 09/06/21 13:24 Triglycerides 118 mg/dL (2-149) 09/06/21 13:24 Cholesterol 178 mg/dL (50-199) 09/06/21 13:24 LDL Cholesterol Direct 105 mg/dL (50-130) 09/06/21 13:24 HDL Cholesterol 60 mg/dL (40-59) H 09/06/21 13:24 Cholesterol/HDL Ratio 2.96 % 09/06/21 13:24 TSH 0.454 mlU/mL (0.270-4.200) 09/06/21 13:24 Last Vital Signs Temp 97.6 F 09/20/21 08:36 Pulse 99 H 09/20/21 08:36 Resp 18 09/20/21 08:36 BP 117/63 09/20/21 08:36 Pulse Ox 90 09/20/21 08:36
[2021-09-20] MEDS: traZODone 50 MG TAB PO SCH (21:45)
--- NOTE | 2021-09-21 00:59 | Progress Note ---
Subjective Date of service: 09/20/21 Principal diagnosis: Major Depressive Disorder Objective - Constitutional Vitals: Vital Signs - 12hr 09/20/21 19:21 Temperature 98.6 F Pulse Rate 88 Respiratory 17 Rate Blood Pressure 134/66 O2 Sat by Pulse 95 Oximetry General appearance: Present: no acute distress, well-nourished - EENT Eyes: PERRL, EOM intact ENT: hearing intact, clear oral mucosa Ears: bilateral: normal - Neck Neck: supple, normal ROM - Respiratory Respiratory effort: normal Respiratory: bilateral: CTA - Breasts Breasts: normal - Cardiovascular Rhythm: regular Heart Sounds: Present: S1 & S2. Absent: gallop, rub Extremities: pulses intact, No edema, normal color, Full ROM - Gastrointestinal General gastrointestinal: Present: soft, non-tender, non-distended, normal bowel sounds - Genitourinary Female genitourinary: normal - Integumentary Integumentary: clear, warm, dry - Musculoskeletal Musculoskeletal: 1, strength equal bilaterally - Neurologic Neurologic: moves all extremities - Psychiatric Psychiatric: memory intact, appropriate mood/affect, intact judgment & insight - Labs CBC & Chem 7: 09/06/21 13:24 09/06/21 13:24 Labs: Abnormal lab results 09/20/21 Range/Units 06:28 POC Glucose 108 H (70-105) mg/dL
[2021-09-21] MEDS: ARIPiprazole 5 MG TAB PO SCH (10:03)
[2021-09-21] MEDS: ESCITALOPRAM 10 MG TAB PO SCH (10:03)
[2021-09-21] MEDS: NIFEdipine XL 30 MG TAB PO SCH (10:03)
[2021-09-21] MEDS: busPIRone 5 MG TAB PO SCH (10:03)
[2021-09-21] MEDS: allopurinoL 100 MG TAB PO SCH (10:03)
[2021-09-21] MEDS: CETIRIZINE 10 MG TAB PO SCH (10:03)
[2021-09-21] MEDS: metFORMIN 500 MG TAB PO SCH ×2 (10:03→17:22)
[2021-09-21] MEDS: DIVALPROEX DR 250 MG TAB PO SCH ×2 (10:03→21:10)
--- NOTE | 2021-09-21 10:23 | Progress Note ---
Subjective Date of service: 09/21/21 Principal diagnosis: Major Depressive Disorder Subjective Comment: The patient was seen today. She is sitting in the day room. She presents as better than why I evaluated her last week. She verbalizes feeling depressed, but denies SI/HI or hallucinations of any kind. The patient is awaiting placement. 09/20/21:The patient was seen today. The patient states she is doing fine but states she is tired of waiting. She reports sleep and appetite as good. She denies any current suicidal/homicidal ideation and denies hallucinations. The patient is clear from psych point of view. 09/18/21:The patient was seen today. The patient states she is doing okay. She reports sleep and appetite as good. She denies any current suicidal/homicidal ideation and denies hallucinations. 09/17/21: The patient was seen today. She is pleasant. The patient states she is doing well. She reports sleep and appetite as good. She denies any current suicidal/homicidal ideation and denies hallucinations. 09/16/21: The patient was seen today.The patient states she is doing well. She is lucid. She denies any current suicidal/homicidal ideation and denies hallucinations. 09/15/21:The patient was seen today.The patient states she is feeling better. " I did not kill my family right? then I'm good." She denies any current suicidal/homicidal ideation and denies hallucinations. 09/14/21: The patient was seen today. She presents with flat affect; the patient continues to endorse depression rates as 10/10. She reports suicidal ideation with no plan " I wish somebody can do it for me and get it over with." She endorses hallucinations "voices saying I killed my family." 09/13/21:The patient was seen today. She is sitting off to herself. She appears down. The patient says "I'm just here." She verbalizes feeling depressed and suicidal. She denies hallucinations. 09/12 The patient was seen today. She is in the dayroom with her head down. She easily arouses. She says "I'm just here." She verbalizes feeling depressed. I ask the patient why is she depressed, she replies "you know why." The patient says "I don't really want to live." She then says "I don't want to talk about it." 09/11 The patient was seen today. Staff and hospitalist with the patient. The patient's BP was initially low, but has normalized now. The patient was taken to the day room, she is shaking and asking to go back to bed. She is irritable and acting bizarre. I touch her and she shakes vigorously and tells me not to touch her. She says "I don't feel good." I ask the patient why she didn't feel good, she says "put me in my room. That chair is nasty." She refused to answer if she was having hallucinations or feeling suicidal. She says "Shhhhhh, I want to go to my room." 09/10 The patient was seen today. She is lying in bed awake. Her thoughts are disorganized. The patient is acting bizarre. She is staring at the ceiling with her right arm stuck out. She says "my arm is still on the plane." She says "they are smoking on the plane." The patient says "my body is still on this plane. Get out of here." She says "get out of here." The patient then stops talking. 09/09 The patient was seen today. She is sleeping. She is irritable at me waking her up. She tells me to "shhhhhh" to silence me. She verbalizes being depressed. She says "I don't want to talk about it," when asking her was she suicidal. The nurse says the patient was given Geodon prn and it just started to take affect this morning. Nurse note states the patient was agitated, combative and hallucinating. 09/08 The patient was seen today. She is sitting in the dayroom. She is paranoid and delusional. She appears withdrawn. The patient says she is depressed. She then says "I killed my whole family, remember?" I tell the patient that none of that happened. She becomes upset, and says "just don't say nothing else." She refused to speak any further. 09/13 The patient was seen today. She is sitting off to herself. She appears down. The patient says "I'm just here." She verbalizes feeling depressed and suicidal. She denies hallucinations. 09/12 The patient was seen today. She is in the dayroom with her head down. She easily arouses. She says "I'm just here." She verbalizes feeling depressed. I ask the patient why is she depressed, she replies "you know why." The patient says "I don't really want to live." She then says "I don't want to talk about it." 09/11 The patient was seen today. Staff and hospitalist with the patient. The patient's BP was initially low, but has normalized now. The patient was taken to the day room, she is shaking and asking to go back to bed. She is irritable and acting bizarre. I touch her and she shakes vigorously and tells me not to touch her. She says "I don't feel good." I ask the patient why she didn't feel good, she says "put me in my room. That chair is nasty." She refused to answer if she was having hallucinations or feeling suicidal. She says "Shhhhhh, I want to go to my room." 09/10 The patient was seen today. She is lying in bed awake. Her thoughts are disorganized. The patient is acting bizarre. She is staring at the ceiling with her right arm stuck out. She says "my arm is still on the plane." She says "they are smoking on the plane." The patient says "my body is still on this plane. Get out of here." She says "get out of here." The patient then stops talking. 09/09 The patient was seen today. She is sleeping. She is irritable at me waking her up. She tells me to "shhhhhh" to silence me. She verbalizes being depressed. She says "I don't want to talk about it," when asking her was she suicidal. The nurse says the patient was given Geodon prn and it just started to take affect this morning. Nurse note states the patient was agitated, combative and hallucinating. 09/08 The patient was seen today. She is sitting in the dayroom. She is paranoid and delusional. She appears withdrawn. The patient says she is depressed. She then says "I killed my whole family, remember?" I tell the patient that none of that happened. She becomes upset, and says "just don't say nothing else." She refused to speak any further. REVIEW OF SYSTEMS Constitutional: Negative for weight loss ENT: Negative for stridor Respiratory: Negative for cough or hemoptysis All other systems reviewed and are negative MENTAL STATUS EXAMINATION General Appearance and Behavior: Age appropriate, good hygiene, wearing appropriate clothes, good eye contact, calm, cooperative Cooperation: Participating/engaged, but Guarded Psychomotor Behavior: Psychomotor normal Mood: confused Affect and affective range: congruent with stated mood Thought Process: Circumstantial Thought Content: paranoid Speech: normal tone and pace Suicidal Ideation: Denies Homicidal Ideation: Denies Hallucinations: Denies Delusions: None elicited Impulse Control: Limited Insight and Judgment: Limited insight and judgment Memory: Limited Attention: attentive Orientation: Alert, oriented Assessment and Plan Delusional disorder Treatment Plan Patient admitted for inpatient psychiatric evaluation, medication adjustment and close monitoring The patient's behavior, mood, sleep and appetite will be closely monitored. Patient enrolled in individual and group therapeutic sessions and encouraged to attend. Patient provided with a safe and structured environment. Patient's physical health needs will be addressed by the Hospitalist. Hospitalist Consulted Labs including CBC, CMP, Lipid profile and Hemoglobin A1C levels ordered for baseline reference Social Assessment will be completed and the Respiratory Manager will work with patient and family to ensure a suitable and safe disposition Medication adjustment will be made as clinically indicated Continue meds Usual Wellness [employer]/Preservation: - Start Trazodone 50 mg po QHS & 50 mg po QHS PRN between 10 PM & 2 AM for i nsomnia - Start Melatonin 5 mg po QHS to promote circadian rhythm The patient agreed on the treatment plan, understood the risk, benefit, alternative treatment, potential consequence of no treatment, and gave informed consent. Estimated days: 7 Post hospital care: primary care provider, psychiatric provider Case staffed with Dr. Christopher Medications and Allergies Allergies Allergy/AdvReac Type Severity Reaction Status Date / Time No Known Allergies Allergy Unverified 09/05/21 22:34 Home Medications Medication Instructions Recorded Confirmed Last Taken Type AtorvaSTATin [Lipitor] 20 mg PO HS 09/06/21 09/06/21 Unknown History Cetirizine HCl 10 mg PO DAILY 09/06/21 09/06/21 Unknown History Losartan Potassium 100 mg PO DAILY 09/06/21 09/06/21 Unknown History allopurinoL [Zyloprim] 100 mg PO DAILY 09/06/21 09/06/21 Unknown History cloNIDine [Catapres] 0.1 mg PO BID 09/06/21 09/06/21 Unknown History ARIPiprazole 5 mg PO QDAY 30 Days #30 tablet 09/19/[address] [Depakote Dr] 250 mg PO BID 30 Days #60 tablet 09/19/21 Unknown Rx Escitalopram [Lexapro] 20 mg PO QDAY 30 Days #30 tablet 09/19/21 Unknown Rx NIFEdipine XL [Procardia Xl] 30 mg PO QDAY tablet 09/19/21 Unknown Rx busPIRone [Buspar] 5 mg PO DAILY 30 Days #30 09/19/21 Unknown Rx metFORMIN [Glucophage] 500 mg PO BIDDIAB tablet 09/19/21 Unknown Rx traZODone [Desyrel] 50 mg PO QHS 30 Days #30 tablet 09/19/21 Unknown Rx Active Meds: Active Medications Allopurinol (Allopurinol 100 Mg Tab) 100 mg PO DAILY [facility] Last Admin: 09/21/21 10:03 Dose: 100 mg Aripiprazole (Aripiprazole 5 Mg Tab) 5 mg PO QDAY [facility] Last Admin: 09/21/21 10:03 Dose: 5 mg Atorvastatin Calcium (Atorvastatin 20 Mg Tab) 20 mg PO [facility] Last Admin: 09/20/21 21:45 Dose: 20 mg Buspirone HCl (Buspirone 5 Mg Tab) 5 mg PO DAILY [facility] Last Admin: 09/21/21 10:03 Dose: 5 mg Cetirizine HCl (Cetirizine 10 Mg Tab) 10 mg PO DAILY [facility] Last Admin: 09/21/21 10:03 Dose: 10 mg Divalproex Sodium (Divalproex Dr 250 Mg Tab) 250 mg PO BID [facility] Last Admin: 09/21/21 10:03 Dose: 250 mg Escitalopram Oxalate (Escitalopram 10 Mg Tab) 20 mg PO QDAY [facility] Last Admin: 09/21/21 10:03 Dose: 20 mg Metformin HCl (Metformin 500 Mg Tab) 500 mg PO BIDDIAB [facility] Last Admin: 09/21/21 10:03 Dose: 500 mg Nifedipine (Nifedipine Xl 30 Mg Tab) 30 mg PO QDAY [facility] Last Admin: 09/21/21 10:03 Dose: 30 mg Trazodone HCl (Trazodone 50 Mg Tab) 50 mg PO QHS [facility] Last Admin: 09/20/21 21:45 Dose: 50 mg Ziprasidone (Ziprasidone Mesylate 20 Mg Vial) 10 mg IM Q4H PRN PRN Reason: Agitation Results - Results Labs/Vitals: Laboratory Last Values WBC 9.5 K/mm3 (4.5-11.0) 09/06/21 13:24 RBC 3.76 M/mm3 (3.65-5.03) 09/06/21 13:24 Hgb 11.6 gm/dl (10.1-14.3) 09/06/21 13:24 Hct 35.2 % (30.3-42.9) 09/06/21 13:24 MCV 94 fl (79-97) 09/06/21 13:24 MCH 31 pg (28-32) 09/06/21 13:24 MCHC 33 % (30-34) 09/06/21 13:24 RDW 14.1 % (13.2-15.2) 09/06/21 13:24 Plt Count 210 K/mm3 (140-440) 09/06/21 13:24 Lymph % (Auto) 19.3 % (13.4-35.0) 09/06/21 13:24 [place] % (Auto) 5.2 % (0.0-7.3) 09/06/21 13:24 Eos % (Auto) 1.7 % (0.0-4.3) 09/06/21 13:24 Baso % (Auto) 0.5 % (0.0-1.8) 09/06/21 13:24 Lymph # (Auto) 1.8 K/mm3 (1.2-5.4) 09/06/21 13:24 [place] # (Auto) 0.5 K/mm3 (0.0-0.8) 09/06/21 13:24 Eos # (Auto) 0.2 K/mm3 (0.0-0.4) 09/06/21 13:24 Baso # (Auto) 0.0 K/mm3 (0.0-0.1) 09/06/21 13:24 Seg Neutrophils % 73.3 % (40.0-70.0) H 09/06/21 13:24 Seg Neutrophils # 6.9 K/mm3 (1.8-7.7) 09/06/21 13:24 Sodium 133 mmol/L (137-145) L 09/06/21 13:24 Potassium 4.8 mmol/L (3.6-5.0) 09/06/21 13:24 Chloride 102.4 mmol/L (98-107) 09/06/21 13:24 Carbon Dioxide 20 mmol/L (22-30) L 09/06/21 13:24 Anion Gap 15 mmol/L 09/06/21 13:24 BUN 30 mg/dL (7-17) H 09/06/21 13:24 Creatinine 1.5 mg/dL (0.6-1.2) H 09/06/21 13:24 Estimated GFR 35 ml/min 09/06/21 13:24 BUN/Creatinine Ratio 20 % 09/06/21 13:24 Glucose 156 mg/dL (65-100) H 09/06/21 13:24 POC Glucose 108 mg/dL (70-105) H 09/20/21 06:28 Hemoglobin A1c 6.7 % (4-6) H 09/06/21 13:24 Calcium 9.3 mg/dL (8.4-10.2) 09/06/21 13:24 Total Bilirubin 0.60 mg/dL (0.1-1.2) 09/06/21 13:24 AST 21 units/L (5-40) 09/06/21 13:24 ALT 10 units/L (7-56) 09/06/21 13:24 Alkaline Phosphatase 49 units/L (35-129) 09/06/21 13:24 Total Protein 7.1 g/dL (6.3-8.2) 09/06/21 13:24 Albumin 2.5 g/dL (3.9-5) L 09/06/21 13:24 Albumin/Globulin Ratio 0.5 % 09/06/21 13:24 Triglycerides 118 mg/dL (2-149) 09/06/21 13:24 Cholesterol 178 mg/dL (50-199) 09/06/21 13:24 LDL Cholesterol Direct 105 mg/dL (50-130) 09/06/21 13:24 HDL Cholesterol 60 mg/dL (40-59) H 09/06/21 13:24 Cholesterol/HDL Ratio 2.96 % 09/06/21 13:24 TSH 0.454 mlU/mL (0.270-4.200) 09/06/21 13:24 Valproic Acid 38.1 ug/mL (50-100) L 09/21/21 09:45 Last Vital Signs Temp 98.5 F 09/21/21 09:19 Pulse 84 09/21/21 09:19 Resp 18 09/21/21 09:19 BP 134/71 09/21/21 09:19 Pulse Ox 96 09/21/21 09:19
[2021-09-21] MEDS: traZODone 50 MG TAB PO SCH (21:11)
--- NOTE | 2021-09-22 00:37 | Progress Note ---
Subjective Date of service: 09/21/21 Principal diagnosis: Major Depressive Disorder Objective - Constitutional Vitals: Vital Signs - 12hr 09/21/21 20:35 Temperature 98.6 F Pulse Rate 77 Respiratory 18 Rate Blood Pressure 121/63 O2 Sat by Pulse 96 Oximetry General appearance: Present: no acute distress, well-nourished - EENT Eyes: PERRL, EOM intact ENT: hearing intact, clear oral mucosa Ears: bilateral: normal - Neck Neck: supple, normal ROM - Respiratory Respiratory effort: normal Respiratory: bilateral: CTA - Breasts Breasts: normal - Cardiovascular Rhythm: regular Heart Sounds: Present: S1 & S2. Absent: gallop, rub Extremities: pulses intact, No edema, normal color, Full ROM - Gastrointestinal General gastrointestinal: Present: soft, non-tender, non-distended, normal bowel sounds - Genitourinary Female genitourinary: normal - Integumentary Integumentary: clear, warm, dry - Musculoskeletal Musculoskeletal: 1, strength equal bilaterally - Neurologic Neurologic: moves all extremities - Psychiatric Psychiatric: memory intact, appropriate mood/affect, intact judgment & insight - Labs CBC & Chem 7: 09/06/21 13:24 09/06/21 13:24 Labs: Abnormal lab results 09/21/21 09/21/21 Range/Units 07:35 09:45 POC Glucose 117 H (70-105) mg/dL Valproic Acid 38.1 L (50-100) ug/mL
--- NOTE | 2021-09-22 08:41 | Progress Note ---
Subjective Date of service: 09/22/21 Principal diagnosis: Major Depressive Disorder Subjective Comment: The patient was seen today. She is sitting with another patient. She appears withdrawn. She states she is a little sad, but better. She denies SI/HI or hallucinations of any kind. 09/21 The patient was seen today. She is sitting in the day room. She presents as better than why I evaluated her last week. She verbalizes feeling depressed, but denies SI/HI or hallucinations of any kind. The patient is awaiting placement. 09/20/21: The patient was seen today. The patient states she is doing fine but states she is tired of waiting. She reports sleep and appetite as good. She denies any current suicidal/homicidal ideation and denies hallucinations. The patient is clear from psych point of view. 09/18/21: The patient was seen today. The patient states she is doing okay. She reports sleep and appetite as good. She denies any current suicidal/homicidal ideation and denies hallucinations. 09/17/21: The patient was seen today. She is pleasant. The patient states she is doing well. She reports sleep and appetite as good. She denies any current suicidal/homicidal ideation and denies hallucinations. 09/16/21: The patient was seen today.The patient states she is doing well. She is lucid. She denies any current suicidal/homicidal ideation and denies h allucinations. 09/15/21: The patient was seen today.The patient states she is feeling better. " I did not kill my family right? then I'm good." She denies any current suicida l/homicidal ideation and denies hallucinations. 09/14/21: The patient was seen today. She presents with flat affect; the patient continues to endorse depression rates as 10/10. She reports suicidal ideation with no plan " I wish somebody can do it for me and get it over with." She endorses hallucinations "voices saying I killed my family." 09/13/21: The patient was seen today. She is sitting off to herself. She appears down. The patient says "I'm just here." She verbalizes feeling depressed and suicidal. She denies hallucinations. 09/12 The patient was seen today. She is in the dayroom with her head down. She easily arouses. She says "I'm just here." She verbalizes feeling depressed. I ask the patient why is she depressed, she replies "you know why." The patient says "I don't really want to live." She then says "I don't want to talk about it." 09/11 The patient was seen today. Staff and hospitalist with the patient. The patient's BP was initially low, but has normalized now. The patient was taken to the day room, she is shaking and asking to go back to bed. She is irritable and acting bizarre. I touch her and she shakes vigorously and tells me not to touch her. She says "I don't feel good." I ask the patient why she didn't feel good, she says "put me in my room. That chair is nasty." She refused to answer if she was having hallucinations or feeling suicidal. She says "Shhhhhh, I want to go to my room." 09/10 The patient was seen today. She is lying in bed awake. Her thoughts are disorganized. The patient is acting bizarre. She is staring at the ceiling with her right arm stuck out. She says "my arm is still on the plane." She says "they are smoking on the plane." The patient says "my body is still on this plane. Get out of here." She says "get out of here." The patient then stops talking. 09/09 The patient was seen today. She is sleeping. She is irritable at me waking her up. She tells me to "shhhhhh" to silence me. She verbalizes being depressed. She says "I don't want to talk about it," when asking her was she suicidal. The nurse says the patient was given Geodon prn and it just started to take affect this morning. Nurse note states the patient was agitated, combative and hallucinating. 09/08 The patient was seen today. She is sitting in the dayroom. She is paranoid and delusional. She appears withdrawn. The patient says she is depressed. She then says "I killed my whole family, remember?" I tell the patient that none of that happened. She becomes upset, and says "just don't say nothing else." She refused to speak any further. 09/13 The patient was seen today. She is sitting off to herself. She appears down. The patient says "I'm just here." She verbalizes feeling depressed and suicidal. She denies hallucinations. 09/12 The patient was seen today. She is in the dayroom with her head down. She easily arouses. She says "I'm just here." She verbalizes feeling depressed. I ask the patient why is she depressed, she replies "you know why." The patient says "I don't really want to live." She then says "I don't want to talk about it." 09/11 The patient was seen today. Staff and hospitalist with the patient. The patient's BP was initially low, but has normalized now. The patient was taken to the day room, she is shaking and asking to go back to bed. She is irritable and acting bizarre. I touch her and she shakes vigorously and tells me not to touch her. She says "I don't feel good." I ask the patient why she didn't feel good, she says "put me in my room. That chair is nasty." She refused to answer if she was having hallucinations or feeling suicidal. She says "Shhhhhh, I want to go to my room." 09/10 The patient was seen today. She is lying in bed awake. Her thoughts are disorganized. The patient is acting bizarre. She is staring at the ceiling with her right arm stuck out. She says "my arm is still on the plane." She says "they are smoking on the plane." The patient says "my body is still on this plane. Get out of here." She says "get out of here." The patient then stops talking. 09/09 The patient was seen today. She is sleeping. She is irritable at me waking her up. She tells me to "shhhhhh" to silence me. She verbalizes being depressed. She says "I don't want to talk about it," when asking her was she suicidal. The nurse says the patient was given Geodon prn and it just started to take affect this morning. Nurse note states the patient was agitated, combative and hallucinating. 09/08 The patient was seen today. She is sitting in the dayroom. She is paranoid and delusional. She appears withdrawn. The patient says she is depressed. She then says "I killed my whole family, remember?" I tell the patient that none of that happened. She becomes upset, and says "just don't say nothing else." She refused to speak any further. REVIEW OF SYSTEMS Constitutional: Negative for weight loss ENT: Negative for stridor Respiratory: Negative for cough or hemoptysis All other systems reviewed and are negative MENTAL STATUS EXAMINATION General Appearance and Behavior: Age appropriate, good hygiene, wearing appropriate clothes, good eye contact, calm, cooperative Cooperation: Participating/engaged, but Guarded Psychomotor Behavior: Psychomotor normal Mood: sad, but better Affect and affective range: congruent with stated mood Thought Process: Circumstantial Thought Content: None Speech: normal tone and pace Suicidal Ideation: Denies Homicidal Ideation: Denies Hallucinations: Denies Delusions: None elicited Impulse Control: Limited Insight and Judgment: Limited insight and judgment Memory: Limited Attention: attentive Orientation: Alert, oriented Assessment and Plan Delusional disorder Treatment Plan Patient admitted for inpatient psychiatric evaluation, medication adjustment and close monitoring The patient's behavior, mood, sleep and appetite will be closely monitored. Patient enrolled in individual and group therapeutic sessions and encouraged to attend. Patient provided with a safe and structured environment. Patient's physical health needs will be addressed by the Hospitalist. Hospitalist Consulted Labs including CBC, CMP, Lipid profile and Hemoglobin A1C levels ordered for baseline reference Social Assessment will be completed and the Story Teller will work with patient and family to ensure a suitable and safe disposition Medication adjustment will be made as clinically indicated Continue meds Usual Wellness Religious/Preservation: - Start Trazodone 50 mg po QHS & 50 mg po QHS PRN between 10 PM & 2 AM for insomnia - Start Melatonin 5 mg po QHS to promote circadian rhythm The patient agreed on the treatment plan, understood the risk, benefit, alternative treatment, potential consequence of no treatment, and gave informed consent. Estimated days: 7 Post hospital care: primary care provider, psychiatric provider Case staffed with Dr. Christopher Medications and Allergies Allergies Allergy/AdvReac Type Severity Reaction Status Date / Time No Known Allergies Allergy Unverified 09/05/21 22:34 Home Medications Medication Instructions Recorded Confirmed Last Taken Type AtorvaSTATin [Lipitor] 20 mg PO HS 09/06/21 09/06/21 Unknown History Cetirizine HCl 10 mg PO DAILY 09/06/21 09/06/21 Unknown History Losartan Potassium 100 mg PO DAILY 09/06/21 09/06/21 Unknown History allopurinoL [Zyloprim] 100 mg PO DAILY 09/06/21 09/06/21 Unknown History cloNIDine [Catapres] 0.1 mg PO BID 09/06/21 09/06/21 Unknown History ARIPiprazole 5 mg PO QDAY 30 Days #30 tablet 09/19/[address] [Depakote Dr] 250 mg PO BID 30 Days #60 tablet 09/19/21 Unknown Rx Escitalopram [Lexapro] 20 mg PO QDAY 30 Days #30 tablet 09/19/21 Unknown Rx NIFEdipine XL [Procardia Xl] 30 mg PO QDAY tablet 09/19/21 Unknown Rx busPIRone [Buspar] 5 mg PO DAILY 30 Days #30 09/19/21 Unknown Rx metFORMIN [Glucophage] 500 mg PO BIDDIAB tablet 09/19/21 Unknown Rx traZODone [Desyrel] 50 mg PO QHS 30 Days #30 tablet 09/19/21 Unknown Rx Active Meds: Active Medications Allopurinol (Allopurinol 100 Mg Tab) 100 mg PO DAILY [facility] Last Admin: 09/21/21 10:03 Dose: 100 mg Aripiprazole (Aripiprazole 5 Mg Tab) 5 mg PO QDAY [facility] Last Admin: 09/21/21 10:03 Dose: 5 mg Atorvastatin Calcium (Atorvastatin 20 Mg Tab) 20 mg PO [facility] Last Admin: 09/21/21 21:11 Dose: 20 mg Buspirone HCl (Buspirone 5 Mg Tab) 5 mg PO DAILY [facility] Last Admin: 09/21/21 10:03 Dose: 5 mg Cetirizine HCl (Cetirizine 10 Mg Tab) 10 mg PO DAILY [facility] Last Admin: 09/21/21 10:03 Dose: 10 mg Divalproex Sodium (Divalproex Dr 250 Mg Tab) 250 mg PO BID [facility] Last Admin: 09/21/21 21:10 Dose: 250 mg Escitalopram Oxalate (Escitalopram 10 Mg Tab) 20 mg PO QDAY [facility] Last Admin: 09/21/21 10:03 Dose: 20 mg Metformin HCl (Metformin 500 Mg Tab) 500 mg PO BIDDIAB [facility] Last Admin: 09/21/21 17:22 Dose: 500 mg Nifedipine (Nifedipine Xl 30 Mg Tab) 30 mg PO QDAY [facility] Last Admin: 09/21/21 10:03 Dose: 30 mg Trazodone HCl (Trazodone 50 Mg Tab) 50 mg PO QHS [facility] Last Admin: 09/21/21 21:11 Dose: 50 mg Ziprasidone (Ziprasidone Mesylate 20 Mg Vial) 10 mg IM Q4H PRN PRN Reason: Agitation Results - Results Labs/Vitals: Laboratory Last Values WBC 9.5 K/mm3 (4.5-11.0) 09/06/21 13:24 RBC 3.76 M/mm3 (3.65-5.03) 09/06/21 13:24 Hgb 11.6 gm/dl (10.1-14.3) 09/06/21 13:24 Hct 35.2 % (30.3-42.9) 09/06/21 13:24 MCV 94 fl (79-97) 09/06/21 13:24 MCH 31 pg (28-32) 09/06/21 13:24 MCHC 33 % (30-34) 09/06/21 13:24 RDW 14.1 % (13.2-15.2) 09/06/21 13:24 Plt Count 210 K/mm3 (140-440) 09/06/21 13:24 Lymph % (Auto) 19.3 % (13.4-35.0) 09/06/21 13:24 Williamson % (Auto) 5.2 % (0.0-7.3) 09/06/21 13:24 Eos % (Auto) 1.7 % (0.0-4.3) 09/06/21 13:24 Baso % (Auto) 0.5 % (0.0-1.8) 09/06/21 13:24 Lymph # (Auto) 1.8 K/mm3 (1.2-5.4) 09/06/21 13:24 Williamson # (Auto) 0.5 K/mm3 (0.0-0.8) 09/06/21 13:24 Eos # (Auto) 0.2 K/mm3 (0.0-0.4) 09/06/21 13:24 Baso # (Auto) 0.0 K/mm3 (0.0-0.1) 09/06/21 13:24 Seg Neutrophils % 73.3 % (40.0-70.0) H 09/06/21 13:24 Seg Neutrophils # 6.9 K/mm3 (1.8-7.7) 09/06/21 13:24 Sodium 133 mmol/L (137-145) L 09/06/21 13:24 Potassium 4.8 mmol/L (3.6-5.0) 09/06/21 13:24 Chloride 102.4 mmol/L (98-107) 09/06/21 13:24 Carbon Dioxide 20 mmol/L (22-30) L 09/06/21 13:24 Anion Gap 15 mmol/L 09/06/21 13:24 BUN 30 mg/dL (7-17) H 09/06/21 13:24 Creatinine 1.5 mg/dL (0.6-1.2) H 09/06/21 13:24 Estimated GFR 35 ml/min 09/06/21 13:24 BUN/Creatinine Ratio 20 % 09/06/21 13:24 Glucose 156 mg/dL (65-100) H 09/06/21 13:24 POC Glucose 117 mg/dL (70-105) H 09/21/21 07:35 Hemoglobin A1c 6.7 % (4-6) H 09/06/21 13:24 Calcium 9.3 mg/dL (8.4-10.2) 09/06/21 13:24 Total Bilirubin 0.60 mg/dL (0.1-1.2) 09/06/21 13:24 AST 21 units/L (5-40) 09/06/21 13:24 ALT 10 units/L (7-56) 09/06/21 13:24 Alkaline Phosphatase 49 units/L (35-129) 09/06/21 13:24 Total Protein 7.1 g/dL (6.3-8.2) 09/06/21 13:24 Albumin 2.5 g/dL (3.9-5) L 09/06/21 13:24 Albumin/Globulin Ratio 0.5 % 09/06/21 13:24 Triglycerides 118 mg/dL (2-149) 09/06/21 13:24 Cholesterol 178 mg/dL (50-199) 09/06/21 13:24 LDL Cholesterol Direct 105 mg/dL (50-130) 09/06/21 13:24 HDL Cholesterol 60 mg/dL (40-59) H 09/06/21 13:24 Cholesterol/HDL Ratio 2.96 % 09/06/21 13:24 TSH 0.454 mlU/mL (0.270-4.200) 09/06/21 13:24 Valproic Acid 38.1 ug/mL (50-100) L 09/21/21 09:45 Last Vital Signs Temp 98.6 F 09/21/21 20:35 Pulse 77 09/21/21 20:35 Resp 18 09/21/21 20:35 BP 121/63 09/21/21 20:35 Pulse Ox 96 09/21/21 20:35
[2021-09-22] MEDS: busPIRone 5 MG TAB PO SCH (09:34)
[2021-09-22] MEDS: DIVALPROEX DR 250 MG TAB PO SCH ×2 (09:34→21:33)
[2021-09-22] MEDS: ESCITALOPRAM 10 MG TAB PO SCH (09:34)
[2021-09-22] MEDS: CETIRIZINE 10 MG TAB PO SCH (09:34)
[2021-09-22] MEDS: metFORMIN 500 MG TAB PO SCH ×2 (09:34→17:19)
[2021-09-22] MEDS: ARIPiprazole 5 MG TAB PO SCH (09:34)
[2021-09-22] MEDS: allopurinoL 100 MG TAB PO SCH (09:35)
[2021-09-22] MEDS: NIFEdipine XL 30 MG TAB PO SCH (09:36)
[2021-09-22] MEDS: traZODone 50 MG TAB PO SCH (21:32)
[2021-09-23] MEDS: metFORMIN 500 MG TAB PO SCH ×2 (09:00→16:28)
--- NOTE | 2021-09-23 10:12 | Progress Note ---
Subjective Date of service: 09/23/21 Principal diagnosis: Major Depressive Disorder Subjective Comment: The patient was seen today. She says she's feels better. She denies SI/HI or hallucinations of any kind. The patient will need placement to ensure a safe discharge. 09/22 The patient was seen today. She is sitting with another patient. She appears withdrawn. She states she is a little sad, but better. She denies SI/HI or hallucinations of any kind. 09/21 The patient was seen today. She is sitting in the day room. She presents as better than why I evaluated her last week. She verbalizes feeling depressed, but denies SI/HI or hallucinations of any kind. The patient is awaiting placement. 09/20/21: The patient was seen today. The patient states she is doing fine but states she is tired of waiting. She reports sleep and appetite as good. She denies any current suicidal/homicidal ideation and denies hallucinations. The patient is clear from psych point of view. 09/18/21: The patient was seen today. The patient states she is doing okay. She reports sleep and appetite as good. She denies any current suicidal/homicidal ideation and denies hallucinations. 09/17/21: The patient was seen today. She is pleasant. The patient states she is doing well. She reports sleep and appetite as good. She denies any current suicidal/homicidal ideation and denies hallucinations. 09/16/21: The patient was seen today.The patient states she is doing well. She is lucid. She denies any current suicidal/homicidal ideation and denies julito lucinations. 09/15/21: The patient was seen today.The patient states she is feeling better. " I did not kill my family right? then I'm good." She denies any current suicidal/ homicidal ideation and denies hallucinations. 09/14/21: The patient was seen today. She presents with flat affect; the patient continues to endorse depression rates as 10/10. She reports suicidal ideation with no plan " I wish somebody can do it for me and get it over with." She endorses hallucinations "voices saying I killed my family." 09/13/21: The patient was seen today. She is sitting off to herself. She appears down. The patient says "I'm just here." She verbalizes feeling depressed and suicidal. She denies hallucinations. 09/12 The patient was seen today. She is in the dayroom with her head down. She easily arouses. She says "I'm just here." She verbalizes feeling depressed. I ask the patient why is she depressed, she replies "you know why." The patient says "I don't really want to live." She then says "I don't want to talk about it." 09/11 The patient was seen today. Staff and hospitalist with the patient. The patient's BP was initially low, but has normalized now. The patient was taken to the day room, she is shaking and asking to go back to bed. She is irritable and acting bizarre. I touch her and she shakes vigorously and tells me not to touch her. She says "I don't feel good." I ask the patient why she didn't feel good, she says "put me in my room. That chair is nasty." She refused to answer if she was having hallucinations or feeling suicidal. She says "Shhhhhh, I want to go to my room." 09/10 The patient was seen today. She is lying in bed awake. Her thoughts are disorganized. The patient is acting bizarre. She is staring at the ceiling with her right arm stuck out. She says "my arm is still on the plane." She says "they are smoking on the plane." The patient says "my body is still on this plane. Get out of here." She says "get out of here." The patient then stops talking. 09/09 The patient was seen today. She is sleeping. She is irritable at me waking her up. She tells me to "shhhhhh" to silence me. She verbalizes being depressed. She says "I don't want to talk about it," when asking her was she suicidal. The nurse says the patient was given Geodon prn and it just started to take affect this morning. Nurse note states the patient was agitated, combative and hallucinating. 09/08 The patient was seen today. She is sitting in the dayroom. She is paranoid and delusional. She appears withdrawn. The patient says she is depressed. She then says "I killed my whole family, remember?" I tell the patient that none of that happened. She becomes upset, and says "just don't say nothing else." She refused to speak any further. 09/13 The patient was seen today. She is sitting off to herself. She appears down. The patient says "I'm just here." She verbalizes feeling depressed and suicidal. She denies hallucinations. 09/12 The patient was seen today. She is in the dayroom with her head down. She easily arouses. She says "I'm just here." She verbalizes feeling depressed. I ask the patient why is she depressed, she replies "you know why." The patient says "I don't really want to live." She then says "I don't want to talk about it." 09/11 The patient was seen today. Staff and hospitalist with the patient. The patient's BP was initially low, but has normalized now. The patient was taken to the day room, she is shaking and asking to go back to bed. She is irritable and acting bizarre. I touch her and she shakes vigorously and tells me not to touch her. She says "I don't feel good." I ask the patient why she didn't feel good, she says "put me in my room. That chair is nasty." She refused to answer if she was having hallucinations or feeling suicidal. She says "Shhhhhh, I want to go to my room." 09/10 The patient was seen today. She is lying in bed awake. Her thoughts are disorganized. The patient is acting bizarre. She is staring at the ceiling with her right arm stuck out. She says "my arm is still on the plane." She says "they are smoking on the plane." The patient says "my body is still on this plane. Get out of here." She says "get out of here." The patient then stops talking. 09/09 The patient was seen today. She is sleeping. She is irritable at me waking her up. [facility] to [facility] me. She verbalizes being depressed. She says "I don't want to talk about it," when asking her was she suicidal. The nurse says the patient was given Geodon prn and it just started to take affect this morning. Nurse note states the patient was agitated, combative and hallucinating. 09/08 The patient was seen today. She is sitting in the dayroom. She is paranoid and delusional. She appears withdrawn. The patient says she is depressed. She then says "I killed my whole family, remember?" I tell the patient that none of that happened. She becomes upset, and says "just don't say nothing else." She refused to speak any further. REVIEW OF SYSTEMS Constitutional: Negative for weight loss ENT: Negative for stridor Respiratory: Negative for cough or hemoptysis All other systems reviewed and are negative MENTAL STATUS EXAMINATION General Appearance and Behavior: Age appropriate, good hygiene, wearing appropriate clothes, good eye contact, calm, cooperative Cooperation: Participating/engaged, but Guarded Psychomotor Behavior: Psychomotor normal Mood: sad, but better Affect and affective range: congruent with stated mood Thought Process: Circumstantial Thought Content: None Speech: normal tone and pace Suicidal Ideation: Denies Homicidal Ideation: Denies Hallucinations: Denies Delusions: None elicited Impulse Control: Limited Insight and Judgment: Limited insight and judgment Memory: Limited Attention: attentive Orientation: Alert, oriented Assessment and Plan Delusional disorder Treatment Plan Patient admitted for inpatient psychiatric evaluation, medication adjustment and close monitoring The patient's behavior, mood, sleep and appetite will be closely monitored. Patient enrolled in individual and group therapeutic sessions and encouraged to attend. Patient provided with a safe and structured environment. Patient's physical health needs will be addressed by the Hospitalist. Hospitalist Consulted Labs including CBC, CMP, Lipid profile and Hemoglobin A1C levels ordered for baseline reference Social Assessment will be completed and the Certified Industrial Hygienist will work with patient and family to ensure a suitable and safe disposition Medication adjustment will be made as clinically indicated Continue meds [facility]ual [facility]: - Start Trazodone 50 mg po QHS & 50 mg po QHS PRN between 10 PM & 2 AM for insomnia - Start Melatonin 5 mg po QHS to promote circadian rhythm The patient agreed on the treatment plan, understood the risk, benefit, alternative treatment, potential consequence of no treatment, and gave informed consent. Estimated days: 7 Post hospital care: primary care provider, psychiatric provider Case staffed with Dr. Christopher Medications and Allergies Allergies Allergy/AdvReac Type Severity Reaction Status Date / Time No Known Allergies Allergy Unverified 09/05/21 22:34 Home Medications Medication Instructions Recorded Confirmed Last Taken Type AtorvaSTATin [Lipitor] 20 mg PO HS 09/06/21 09/06/21 Unknown History Cetirizine HCl 10 mg PO DAILY 09/06/21 09/06/21 Unknown History Losartan Potassium 100 mg PO DAILY 09/06/21 09/06/21 Unknown History allopurinoL [Zyloprim] 100 mg PO DAILY 09/06/21 09/06/21 Unknown History cloNIDine [Catapres] 0.1 mg PO BID 09/06/21 09/06/21 Unknown History ARIPiprazole 5 mg PO QDAY 30 Days #30 tablet 09/19/[address] [Depakote Dr] 250 mg PO BID 30 Days #60 tablet 09/19/21 Unknown Rx Escitalopram [Lexapro] 20 mg PO QDAY 30 Days #30 tablet 09/19/21 Unknown Rx NIFEdipine XL [Procardia Xl] 30 mg PO QDAY tablet 09/19/21 Unknown Rx busPIRone [Buspar] 5 mg PO DAILY 30 Days #30 09/19/21 Unknown Rx metFORMIN [Glucophage] 500 mg PO BIDDIAB tablet 09/19/21 Unknown Rx traZODone [Desyrel] 50 mg PO QHS 30 Days #30 tablet 09/19/21 Unknown Rx Active Meds: Active Medications Allopurinol (Allopurinol 100 Mg Tab) 100 mg PO DAILY [facility] Last Admin: 09/22/21 09:35 Dose: 100 mg Aripiprazole (Aripiprazole 5 Mg Tab) 5 mg PO QDAY [facility] Last Admin: 09/22/21 09:34 Dose: 5 mg Atorvastatin Calcium (Atorvastatin 20 Mg Tab) 20 mg PO [facility] Last Admin: 09/22/21 21:33 Dose: 20 mg Buspirone HCl (Buspirone 5 Mg Tab) 5 mg PO DAILY [facility] Last Admin: 09/22/21 09:34 Dose: 5 mg Cetirizine HCl (Cetirizine 10 Mg Tab) 10 mg PO DAILY [facility] Last Admin: 09/22/21 09:34 Dose: 10 mg Divalproex Sodium (Divalproex Dr 250 Mg Tab) 250 mg PO BID [facility] Last Admin: 09/22/21 21:33 Dose: 250 mg Escitalopram Oxalate (Escitalopram 10 Mg Tab) 20 mg PO QDAY [facility] Last Admin: 09/22/21 09:34 Dose: 20 mg Metformin HCl (Metformin 500 Mg Tab) 500 mg PO BIDDIAB [facility] Last Admin: 09/22/21 17:19 Dose: 500 mg Nifedipine (Nifedipine Xl 30 Mg Tab) 30 mg PO QDAY [facility] Last Admin: 09/22/21 09:36 Dose: Not Given Trazodone HCl (Trazodone 50 Mg Tab) 50 mg PO QHS [facility] Last Admin: 09/22/21 21:32 Dose: 50 mg Ziprasidone (Ziprasidone Mesylate 20 Mg Vial) 10 mg IM Q4H PRN PRN Reason: Agitation Results - Results Labs/Vitals: Laboratory Last Values WBC 9.5 K/mm3 (4.5-11.0) 09/06/21 13:24 RBC 3.76 M/mm3 (3.65-5.03) 09/06/21 13:24 Hgb 11.6 gm/dl (10.1-14.3) 09/06/21 13:24 Hct 35.2 % (30.3-42.9) 09/06/21 13:24 MCV 94 fl (79-97) 09/06/21 13:24 MCH 31 pg (28-32) 09/06/21 13:24 MCHC 33 % (30-34) 09/06/21 13:24 RDW 14.1 % (13.2-15.2) 09/06/21 13:24 Plt Count 210 K/mm3 (140-440) 09/06/21 13:24 Lymph % (Auto) 19.3 % (13.4-35.0) 09/06/21 13:24 Prentiss % (Auto) 5.2 % (0.0-7.3) 09/06/21 13:24 Eos % (Auto) 1.7 % (0.0-4.3) 09/06/21 13:24 Baso % (Auto) 0.5 % (0.0-1.8) 09/06/21 13:24 Lymph # (Auto) 1.8 K/mm3 (1.2-5.4) 09/06/21 13:24 Prentiss # (Auto) 0.5 K/mm3 (0.0-0.8) 09/06/21 13:24 Eos # (Auto) 0.2 K/mm3 (0.0-0.4) 09/06/21 13:24 Baso # (Auto) 0.0 K/mm3 (0.0-0.1) 09/06/21 13:24 Seg Neutrophils % 73.3 % (40.0-70.0) H 09/06/21 13:24 Seg Neutrophils # 6.9 K/mm3 (1.8-7.7) 09/06/21 13:24 Sodium 133 mmol/L (137-145) L 09/06/21 13:24 Potassium 4.8 mmol/L (3.6-5.0) 09/06/21 13:24 Chloride 102.4 mmol/L (98-107) 09/06/21 13:24 Carbon Dioxide 20 mmol/L (22-30) L 09/06/21 13:24 Anion Gap 15 mmol/L 09/06/21 13:24 BUN 30 mg/dL (7-17) H 09/06/21 13:24 Creatinine 1.5 mg/dL (0.6-1.2) H 09/06/21 13:24 Estimated GFR 35 ml/min 09/06/21 13:24 BUN/Creatinine Ratio 20 % 09/06/21 13:24 Glucose 156 mg/dL (65-100) H 09/06/21 13:24 POC Glucose 110 mg/dL (70-105) H 09/23/21 06:16 Hemoglobin A1c 6.7 % (4-6) H 09/06/21 13:24 Calcium 9.3 mg/dL (8.4-10.2) 09/06/21 13:24 Total Bilirubin 0.60 mg/dL (0.1-1.2) 09/06/21 13:24 AST 21 units/L (5-40) 09/06/21 13:24 ALT 10 units/L (7-56) 09/06/21 13:24 Alkaline Phosphatase 49 units/L (35-129) 09/06/21 13:24 Total Protein 7.1 g/dL (6.3-8.2) 09/06/21 13:24 Albumin 2.5 g/dL (3.9-5) L 09/06/21 13:24 Albumin/Globulin Ratio 0.5 % 09/06/21 13:24 Triglycerides 118 mg/dL (2-149) 09/06/21 13:24 Cholesterol 178 mg/dL (50-199) 09/06/21 13:24 LDL Cholesterol Direct 105 mg/dL (50-130) 09/06/21 13:24 HDL Cholesterol 60 mg/dL (40-59) H 09/06/21 13:24 Cholesterol/HDL Ratio 2.96 % 09/06/21 13:24 TSH 0.454 mlU/mL (0.270-4.200) 09/06/21 13:24 Valproic Acid 38.1 ug/mL (50-100) L 09/21/21 09:45 Last Vital Signs Temp 98.4 F 09/23/21 08:46 Pulse 84 09/23/21 08:46 Resp 17 09/23/21 08:46 BP 133/82 09/23/21 08:46 Pulse Ox 97 09/23/21 08:46
[2021-09-23] MEDS: busPIRone 5 MG TAB PO SCH (10:20)
[2021-09-23] MEDS: ESCITALOPRAM 10 MG TAB PO SCH (10:21)
[2021-09-23] MEDS: CETIRIZINE 10 MG TAB PO SCH (10:21)
[2021-09-23] MEDS: ARIPiprazole 5 MG TAB PO SCH (10:22)
[2021-09-23] MEDS: NIFEdipine XL 30 MG TAB PO SCH (10:22)
[2021-09-23] MEDS: allopurinoL 100 MG TAB PO SCH (10:22)
[2021-09-23] MEDS: DIVALPROEX DR 250 MG TAB PO SCH ×2 (10:22→21:06)
[2021-09-23] MEDS: traZODone 50 MG TAB PO SCH (21:05)
[2021-09-24] MEDS: metFORMIN 500 MG TAB PO SCH ×2 (07:57→16:59)
[2021-09-24] MEDS: allopurinoL 100 MG TAB PO SCH (09:46)
[2021-09-24] MEDS: ARIPiprazole 5 MG TAB PO SCH (09:46)
[2021-09-24] MEDS: ESCITALOPRAM 10 MG TAB PO SCH (09:46)
[2021-09-24] MEDS: busPIRone 5 MG TAB PO SCH (09:47)
[2021-09-24] MEDS: CETIRIZINE 10 MG TAB PO SCH (09:47)
[2021-09-24] MEDS: DIVALPROEX DR 250 MG TAB PO SCH ×2 (10:17→21:32)
[2021-09-24] MEDS: NIFEdipine XL 30 MG TAB PO SCH (10:19)
--- NOTE | 2021-09-24 10:33 | Progress Note ---
Subjective Date of service: 09/24/21 Principal diagnosis: Major Depressive Disorder Subjective Comment: The patient was seen today. She says she is ready to go. I informed her that we're trying to find her a safe place to discharge so she will be able to maintain her mental health. The patient denies SI/HI or hallucinations of any kind. 09/23 The patient was seen today. She says she's feels better. She denies SI/HI or hallucinations of any kind. The patient will need placement to ensure a safe discharge. 09/22 The patient was seen today. She is sitting with another patient. She appears withdrawn. She states she is a little sad, but better. She denies SI/HI or hallucinations of any kind. 09/21 The patient was seen today. She is sitting in the day room. She presents as better than why I evaluated her last week. She verbalizes feeling depressed, but denies SI/HI or hallucinations of any kind. The patient is awaiting placement. 09/20/21: The patient was seen today. The patient states she is doing fine but states she is tired of waiting. She reports sleep and appetite as good. She denies any current suicidal/homicidal ideation and denies hallucinations. The patient is clear from psych point of view. 09/18/21: The patient was seen today. The patient states she is doing okay. She reports sleep and appetite as good. She denies any current suici halina/homicidal ideation and denies hallucinations. 09/17/21: The patient was seen today. She is pleasant. The patient states she is doing well. She reports sleep and appetite as good. She denies any current suicidal/homicidal ideation and denies hallucinations. 09/16/21: The patient was seen today.The patient states she is doing well. She is lucid. She denies any current suicidal/homicidal ideation and denies hallucinations. 09/15/21: The patient was seen today.The patient states she is feeling better. " I did not kill my family right? then I'm good." She denies any current suicidal/homicidal ideation and denies hallucinations. 09/14/21: The patient was seen today. She presents with flat affect; the patient continues to endorse depression rates as 10/10. She reports suicidal ideation with no plan " I wish somebody can do it for me and get it over with." She endorses hallucinations "voices saying I killed my family." 09/13/21: The patient was seen today. She is sitting off to herself. She appears down. The patient says "I'm just here." She verbalizes feeling depressed and suicidal. She denies hallucinations. 09/12 The patient was seen today. She is in the dayroom with her head down. She easily arouses. She says "I'm just here." She verbalizes feeling depressed. I ask the patient why is she depressed, she replies "you know why." The patient says "I don't really want to live." She then says "I don't want to talk about it ." 09/11 The patient was seen today. Staff and hospitalist with the patient. The patient's BP was initially low, but has normalized now. The patient was taken to the day room, she is shaking and asking to go back to bed. She is irritable and acting bizarre. I touch her and she shakes vigorously and tells me not to touch her. She says "I don't feel good." I ask the patient why she didn't feel good, she says "put me in my room. That chair is nasty." She refused to answer if she was having hallucinations or feeling suicidal. She says "Shhhhhh, I want to go to my room." 09/10 The patient was seen today. She is lying in bed awake. Her thoughts are disorganized. The patient is acting bizarre. She is staring at the ceiling with her right arm stuck out. She says "my arm is still on the plane." She says "they are smoking on the plane." The patient says "my body is still on this plane. Get out of here." She says "get out of here." The patient then stops talking. 09/09 The patient was seen today. She is sleeping. She is irritable at me waking her up. She tells me to "shhhhhh" to silence me. She verbalizes being depressed. She says "I don't want to talk about it," when asking her was she suicidal. The nurse says the patient was given Geodon prn and it just started to take affect this morning. Nurse note states the patient was agitated, combative and hallucinating. 09/08 The patient was seen today. She is sitting in the dayroom. She is paranoid and delusional. She appears withdrawn. The patient says she is depressed. She then says "I killed my whole family, remember?" I tell the patient that none of that happened. She becomes upset, and says "just don't say nothing else." She refused to speak any further. 09/13 The patient was seen today. She is sitting off to herself. She appears down. The patient says "I'm just here." She verbalizes feeling depressed and suicidal. She denies hallucinations. 09/12 The patient was seen today. She is in the dayroom with her head down. She easily arouses. She says "I'm just here." She verbalizes feeling depressed. I ask the patient why is she depressed, she replies "you know why." The patient says "I don't really want to live." She then says "I don't want to talk about it." 09/11 The patient was seen today. Staff and hospitalist with the patient. The patient's BP was initially low, but has normalized now. The patient was taken to the day room, she is shaking and asking to go back to bed. She is irritable and acting bizarre. I touch her and she shakes vigorously and tells me not to touch her. She says "I don't feel good." I ask the patient why she didn't feel good, she says "put me in my room. That chair is nasty." She refused to answer if she was having hallucinations or feeling suicidal. She says "Shhhhhh, I want to go to my room." 09/10 The patient was seen today. She is lying in bed awake. Her thoughts are disorganized. The patient is acting bizarre. She is staring at the ceiling with her right arm stuck out. She says "my arm is still on the plane." She says "they are smoking on the plane." The patient says "my body is still on this plane. Get out of here." She says "get out of here." The patient then stops talking. 09/09 The patient was seen today. She is sleeping. She is irritable at me waking her up. [facility] to [facility] me. She verbalizes being depressed. She says "I don't want to talk about it," when asking her was she suicidal. The nurse says the patient was given Geodon prn and it just started to take affect this morning. Nurse note states the patient was agitated, combative and hallucinating. 09/08 The patient was seen today. She is sitting in the dayroom. She is paranoid and delusional. She appears withdrawn. The patient says she is depressed. She then says "I killed my whole family, remember?" I tell the patient that none of that happened. She becomes upset, and says "just don't say nothing else." She refused to speak any further. REVIEW OF SYSTEMS Constitutional: Negative for weight loss ENT: Negative for stridor Respiratory: Negative for cough or hemoptysis All other systems reviewed and are negative MENTAL STATUS EXAMINATION General Appearance and Behavior: Age appropriate, good hygiene, wearing appropriate clothes, good eye contact, calm, cooperative Cooperation: Participating/engaged, but Guarded Psychomotor Behavior: Psychomotor normal Mood: sad, but better Affect and affective range: congruent with stated mood Thought Process: Circumstantial Thought Content: None Speech: normal tone and pace Suicidal Ideation: Denies Homicidal Ideation: Denies Hallucinations: Denies Delusions: None elicited Impulse Control: Limited Insight and Judgment: Limited insight and judgment Memory: Limited Attention: attentive Orientation: Alert, oriented Assessment and Plan Delusional disorder Treatment Plan Patient admitted for inpatient psychiatric evaluation, medication adjustment and close monitoring The patient's behavior, mood, sleep and appetite will be closely monitored. Patient enrolled in individual and group therapeutic sessions and encouraged to attend. Patient provided with a safe and structured environment. Patient's physical health needs will be addressed by the Hospitalist. Hospitalist Consulted Labs including CBC, CMP, Lipid profile and Hemoglobin A1C levels ordered for baseline reference Social Assessment will be completed and the Pomology Teacher will work with patient and family to ensure a suitable and safe disposition Medication adjustment will be made as clinically indicated Continue meds Usual Wellness Synagogue/Preservation: - Start Trazodone 50 mg po QHS & 50 mg po QHS PRN between 10 PM & 2 AM for insomnia - Start Melatonin 5 mg po QHS to promote circadian rhythm The patient agreed on the treatment plan, understood the risk, benefit, alternative treatment, potential consequence of no treatment, and gave informed consent. Estimated days: 7 Post hospital care: primary care provider, psychiatric provider Case staffed with Dr. Christopher Medications and Allergies Allergies Allergy/AdvReac Type Severity Reaction Status Date / Time No Known Allergies Allergy Unverified 09/05/21 22:34 Home Medications Medication Instructions Recorded Confirmed Last Taken Type AtorvaSTATin [Lipitor] 20 mg PO HS 09/06/21 09/06/21 Unknown History Cetirizine HCl 10 mg PO DAILY 09/06/21 09/06/21 Unknown History Losartan Potassium 100 mg PO DAILY 09/06/21 09/06/21 Unknown History allopurinoL [Zyloprim] 100 mg PO DAILY 09/06/21 09/06/21 Unknown History cloNIDine [Catapres] 0.1 mg PO BID 09/06/21 09/06/21 Unknown History ARIPiprazole 5 mg PO QDAY 30 Days #30 tablet 09/19/[address] [Depakote Dr] 250 mg PO BID 30 Days #60 tablet 09/19/21 Unknown Rx Escitalopram [Lexapro] 20 mg PO QDAY 30 Days #30 tablet 09/19/21 Unknown Rx NIFEdipine XL [Procardia Xl] 30 mg PO QDAY tablet 09/19/21 Unknown Rx busPIRone [Buspar] 5 mg PO DAILY 30 Days #30 09/19/21 Unknown Rx metFORMIN [Glucophage] 500 mg PO BIDDIAB tablet 09/19/21 Unknown Rx traZODone [Desyrel] 50 mg PO QHS 30 Days #30 tablet 09/19/21 Unknown Rx Active Meds: Active Medications Allopurinol (Allopurinol 100 Mg Tab) 100 mg PO DAILY [facility] Last Admin: 09/24/21 09:46 Dose: 100 mg Aripiprazole (Aripiprazole 5 Mg Tab) 5 mg PO QDAY [facility] Last Admin: 09/24/21 09:46 Dose: 5 mg Atorvastatin Calcium (Atorvastatin 20 Mg Tab) 20 mg PO HS [facility] Last Admin: 09/23/21 21:05 Dose: 20 mg Buspirone HCl (Buspirone 5 Mg Tab) 5 mg PO DAILY [facility] Last Admin: 09/24/21 09:47 Dose: 5 mg Cetirizine HCl (Cetirizine 10 Mg Tab) 10 mg PO DAILY [facility] Last Admin: 09/24/21 09:47 Dose: 10 mg Divalproex Sodium (Divalproex Dr 250 Mg Tab) 250 mg PO BID [facility] Last Admin: 09/24/21 10:17 Dose: 250 mg Escitalopram Oxalate (Escitalopram 10 Mg Tab) 20 mg PO QDAY [facility] Last Admin: 09/24/21 09:46 Dose: 20 mg Metformin HCl (Metformin 500 Mg Tab) 500 mg PO BIDDIAB [facility] Last Admin: 09/24/21 07:57 Dose: 500 mg Nifedipine (Nifedipine Xl 30 Mg Tab) 30 mg PO QDAY [facility] Last Admin: 09/24/21 10:19 Dose: Not Given Trazodone HCl (Trazodone 50 Mg Tab) 50 mg PO QHS [facility] Last Admin: 09/23/21 21:05 Dose: 50 mg Ziprasidone (Ziprasidone Mesylate 20 Mg Vial) 10 mg IM Q4H PRN PRN Reason: Agitation Results - Results Labs/Vitals: Laboratory Last Values WBC 9.5 K/mm3 (4.5-11.0) 09/06/21 13:24 RBC 3.76 M/mm3 (3.65-5.03) 09/06/21 13:24 Hgb 11.6 gm/dl (10.1-14.3) 09/06/21 13:24 Hct 35.2 % (30.3-42.9) 09/06/21 13:24 MCV 94 fl (79-97) 09/06/21 13:24 MCH 31 pg (28-32) 09/06/21 13:24 MCHC 33 % (30-34) 09/06/21 13:24 RDW 14.1 % (13.2-15.2) 09/06/21 13:24 Plt Count 210 K/mm3 (140-440) 09/06/21 13:24 Lymph % (Auto) 19.3 % (13.4-35.0) 09/06/21 13:24 [place] % (Auto) 5.2 % (0.0-7.3) 09/06/21 13:24 Eos % (Auto) 1.7 % (0.0-4.3) 09/06/21 13:24 Baso % (Auto) 0.5 % (0.0-1.8) 09/06/21 13:24 Lymph # (Auto) 1.8 K/mm3 (1.2-5.4) 09/06/21 13:24 [place] # (Auto) 0.5 K/mm3 (0.0-0.8) 09/06/21 13:24 Eos # (Auto) 0.2 K/mm3 (0.0-0.4) 09/06/21 13:24 Baso # (Auto) 0.0 K/mm3 (0.0-0.1) 09/06/21 13:24 Seg Neutrophils % 73.3 % (40.0-70.0) H 09/06/21 13:24 Seg Neutrophils # 6.9 K/mm3 (1.8-7.7) 09/06/21 13:24 Sodium 133 mmol/L (137-145) L 09/06/21 13:24 Potassium 4.8 mmol/L (3.6-5.0) 09/06/21 13:24 Chloride 102.4 mmol/L (98-107) 09/06/21 13:24 Carbon Dioxide 20 mmol/L (22-30) L 09/06/21 13:24 Anion Gap 15 mmol/L 09/06/21 13:24 BUN 30 mg/dL (7-17) H 09/06/21 13:24 Creatinine 1.5 mg/dL (0.6-1.2) H 09/06/21 13:24 Estimated GFR 35 ml/min 09/06/21 13:24 BUN/Creatinine Ratio 20 % 09/06/21 13:24 Glucose 156 mg/dL (65-100) H 09/06/21 13:24 POC Glucose 116 mg/dL (70-105) H 09/24/21 06:23 Hemoglobin A1c 6.7 % (4-6) H 09/06/21 13:24 Calcium 9.3 mg/dL (8.4-10.2) 09/06/21 13:24 Total Bilirubin 0.60 mg/dL (0.1-1.2) 09/06/21 13:24 AST 21 units/L (5-40) 09/06/21 13:24 ALT 10 units/L (7-56) 09/06/21 13:24 Alkaline Phosphatase 49 units/L (35-129) 09/06/21 13:24 Total Protein 7.1 g/dL (6.3-8.2) 09/06/21 13:24 Albumin 2.5 g/dL (3.9-5) L 09/06/21 13:24 Albumin/Globulin Ratio 0.5 % 09/06/21 13:24 Triglycerides 118 mg/dL (2-149) 09/06/21 13:24 Cholesterol 178 mg/dL (50-199) 09/06/21 13:24 LDL Cholesterol Direct 105 mg/dL (50-130) 09/06/21 13:24 HDL Cholesterol 60 mg/dL (40-59) H 09/06/21 13:24 Cholesterol/HDL Ratio 2.96 % 09/06/21 13:24 TSH 0.454 mlU/mL (0.270-4.200) 09/06/21 13:24 Valproic Acid 38.1 ug/mL (50-100) L 09/21/21 09:45 Last Vital Signs Temp 98.3 F 09/23/21 21:00 Pulse 76 09/23/21 21:00 Resp 17 09/23/21 21:00 BP 138/75 09/23/21 21:00 Pulse Ox 99 09/23/21 21:00
[2021-09-24] MEDS: traZODone 50 MG TAB PO SCH (21:32)
--- NOTE | 2021-09-25 06:10 | Progress Note ---
Subjective Date of service: 09/22/21 Principal diagnosis: Major Depressive Disorder Objective - Constitutional Vitals: Vital Signs - 12hr 09/24/21 19:41 Temperature 97.8 F Pulse Rate 82 Respiratory 16 Rate Blood Pressure 123/61 O2 Sat by Pulse 97 Oximetry General appearance: Present: no acute distress, well-nourished - EENT Eyes: PERRL, EOM intact ENT: hearing intact, clear oral mucosa Ears: bilateral: normal - Neck Neck: supple, normal ROM - Respiratory Respiratory effort: normal Respiratory: bilateral: CTA - Breasts Breasts: normal - Cardiovascular Rhythm: regular Heart Sounds: Present: S1 & S2. Absent: gallop, rub Extremities: pulses intact, No edema, normal color, Full ROM - Gastrointestinal General gastrointestinal: Present: soft, non-tender, non-distended, normal bowel sounds - Genitourinary Female genitourinary: normal - Integumentary Integumentary: clear, warm, dry - Musculoskeletal Musculoskeletal: 1, strength equal bilaterally - Neurologic Neurologic: moves all extremities - Psychiatric Psychiatric: memory intact, appropriate mood/affect, intact judgment & insight - Labs CBC & Chem 7: 09/06/21 13:24 09/06/21 13:24 Labs: Abnormal lab results 09/24/21 Range/Units 06:23 POC Glucose 116 H (70-105) mg/dL
--- NOTE | 2021-09-25 07:23 | Progress Note ---
Assessment and Plan Assessment and plan: 65 YO Female with Vascular Dementia with Behavioral Disturbance, Cerebral Atherosclerosis, HTN, HLD, Gout, Seasonal Allergies, Acute Psychosis admitted to [facility] for psychiatric stabilization. Consult placed with Dr. Pulido for medical management. Patient seen and evaluated in the recreation room. Patient resting comfortably. No reported nursing events. Patient denies pain. Patient is currently at baseline level of cognition and function. 09/25: Continue supportive care, BP is stable, will continue to follow if patient remains inhouse. Will monitor renal function. Also noted with Mild Hyponatremia. (1) Vascular dementia with behavioral disturbance Current Visit: Yes Status: Acute Plan to address problem: Verbal prompting, verbal redirection, benzodiazepine therapy as clinically in dicated. (2) Cerebral atherosclerosis Current Visit: Yes Status: Acute Plan to address problem: Risk factor reduction, antiplatelet therapy as clinically indicated. (3) Obesity hypoventilation syndrome Current Visit: Yes Status: Acute Plan to address problem: Balanced diet, increase physical activity discharge, outpatient pulmonary follow-up for sleep study. (4) Acute psychosis Current Visit: Yes Status: Acute Plan to address problem: Supportive care, continue medical management (5) Hypertension Current Visit: Yes Status: Acute Qualifiers: Hypertension type: primary hypertension Qualified Code(s): I10 - Essential (primary) hypertension Plan to address problem: Monitor blood pressure every shift, continue medical management (6) Hyperlipidemia Current Visit: Yes Status: Acute Qualifiers: Hyperlipidemia type: mixed hyperlipidemia Qualified Code(s): E78.2 - Mixed hyperlipidemia Plan to address problem: Low-cholesterol diet, supportive care, (7) CKD (8) Seasonal allergies Current Visit: Yes Status: Acute Plan to address problem: Continue oral antihistamine therapy as clinically indicated. (9) Advance care planning Current Visit: Yes Status: Acute Plan to address problem: Disease education conducted, care plan discussed, diagnoses discussed, prognosis discussed, patient is full code. Patient acknowledges understanding and agreement with care plan, +30 minutes. History Interval history: Patient seen and examined, she is concerned about going home today. Hospitalist Physical - Physical exam Narrative exam: General appearance: Present: no acute distress, well-nourished, obese, sitting up eating - EENT Eyes: Present: PERRL ENT: hearing intact - Neck Neck: Present: supple - Respiratory Respiratory effort: normal Respiratory: bilateral: CTA - Cardiovascular Rhythm: regular - Extremities Extremities: no ischemia Peripheral Pulses: within normal limits - Abdominal General gastrointestinal: soft, non-tender, non-distended - Integumentary Integumentary: Present: clear, dry - Psychiatric Psychiatric: cooperative - Neurologic Neurologic: CNII-XII intact - Constitutional Vitals: Temp Pulse Resp BP Pulse Ox 97.8 F 82 16 123/61 97 09/24/21 19:41 09/24/21 19:41 09/24/21 19:41 09/24/21 19:41 09/24/21 19:41 General appearance: Present: no acute distress, well-nourished Results - Labs CBC & Chem 7: 09/06/21 13:24 09/06/21 13:24 Labs: Laboratory Last Values WBC 9.5 K/mm3 (4.5-11.0) 09/06/21 13:24 RBC 3.76 M/mm3 (3.65-5.03) 09/06/21 13:24 Hgb 11.6 gm/dl (10.1-14.3) 09/06/21 13:24 Hct 35.2 % (30.3-42.9) 09/06/21 13:24 MCV 94 fl (79-97) 09/06/21 13:24 MCH 31 pg (28-32) 09/06/21 13:24 MCHC 33 % (30-34) 09/06/21 13:24 RDW 14.1 % (13.2-15.2) 09/06/21 13:24 Plt Count 210 K/mm3 (140-440) 09/06/21 13:24 Lymph % (Auto) 19.3 % (13.4-35.0) 09/06/21 13:24 [place] % (Auto) 5.2 % (0.0-7.3) 09/06/21 13:24 Eos % (Auto) 1.7 % (0.0-4.3) 09/06/21 13:24 Baso % (Auto) 0.5 % (0.0-1.8) 09/06/21 13:24 Lymph # (Auto) 1.8 K/mm3 (1.2-5.4) 09/06/21 13:24 [place] # (Auto) 0.5 K/mm3 (0.0-0.8) 09/06/21 13:24 Eos # (Auto) 0.2 K/mm3 (0.0-0.4) 09/06/21 13:24 Baso # (Auto) 0.0 K/mm3 (0.0-0.1) 09/06/21 13:24 Seg Neutrophils % 73.3 % (40.0-70.0) H 09/06/21 13:24 Seg Neutrophils # 6.9 K/mm3 (1.8-7.7) 09/06/21 13:24 Sodium 133 mmol/L (137-145) L 09/06/21 13:24 Potassium 4.8 mmol/L (3.6-5.0) 09/06/21 13:24 Chloride 102.4 mmol/L (98-107) 09/06/21 13:24 Carbon Dioxide 20 mmol/L (22-30) L 09/06/21 13:24 Anion Gap 15 mmol/L 09/06/21 13:24 BUN 30 mg/dL (7-17) H 09/06/21 13:24 Creatinine 1.5 mg/dL (0.6-1.2) H 09/06/21 13:24 Estimated GFR 35 ml/min 09/06/21 13:24 BUN/Creatinine Ratio 20 % 09/06/21 13:24 Glucose 156 mg/dL (65-100) H 09/06/21 13:24 POC Glucose 116 mg/dL (70-105) H 09/24/21 06:23 Hemoglobin A1c 6.7 % (4-6) H 09/06/21 13:24 Calcium 9.3 mg/dL (8.4-10.2) 09/06/21 13:24 Total Bilirubin 0.60 mg/dL (0.1-1.2) 09/06/21 13:24 AST 21 units/L (5-40) 09/06/21 13:24 ALT 10 units/L (7-56) 09/06/21 13:24 Alkaline Phosphatase 49 units/L (35-129) 09/06/21 13:24 Total Protein 7.1 g/dL (6.3-8.2) 09/06/21 13:24 Albumin 2.5 g/dL (3.9-5) L 09/06/21 13:24 Albumin/Globulin Ratio 0.5 % 09/06/21 13:24 Triglycerides 118 mg/dL (2-149) 09/06/21 13:24 Cholesterol 178 mg/dL (50-199) 09/06/21 13:24 LDL Cholesterol Direct 105 mg/dL (50-130) 09/06/21 13:24 HDL Cholesterol 60 mg/dL (40-59) H 09/06/21 13:24 Cholesterol/HDL Ratio 2.96 % 09/06/21 13:24 TSH 0.454 mlU/mL (0.270-4.200) 09/06/21 13:24 Valproic Acid 38.1 ug/mL (50-100) L 09/21/21 09:45 [place]/IV: Voiding Method Toilet Active Medications - Current Medications Current Medications: Generic Name Dose Route Start Last Admin Trade Name Freq PRN Reason Stop Dose Admin Allopurinol 100 mg 09/06/21 10:00 09/24/21 09:46 Allopurinol 100 Mg Tab PO 100 mg DAILY VANESSA Administration Aripiprazole 5 mg 09/12/21 11:00 09/24/21 09:46 Aripiprazole 5 Mg Tab PO 5 mg QDAY VANESSA Administration Atorvastatin Calcium 20 mg 09/06/21 22:00 09/24/21 21:32 Atorvastatin 20 Mg Tab PO 20 mg HS VANESSA Administration Buspirone HCl 5 mg 09/06/21 10:00 09/24/21 09:47 Buspirone 5 Mg Tab PO 5 mg DAILY VANESSA Administration Cetirizine HCl 10 mg 09/06/21 10:00 09/24/21 09:47 Cetirizine 10 Mg Tab PO 10 mg DAILY VANESSA Administration Divalproex Sodium 250 mg 09/13/21 10:00 09/24/21 21:[address] 250 Mg Tab PO 250 mg BID VANESSA Administration Escitalopram Oxalate 20 mg 09/07/21 10:00 09/24/21 09:46 Escitalopram 10 Mg Tab PO 20 mg QDAY VANESSA Administration Metformin HCl 500 mg 09/07/21 10:00 09/24/21 16:59 Metformin 500 Mg Tab PO 500 mg BIDDIAB VANESSA Administration Nifedipine 30 mg 09/09/21 10:00 09/24/21 10:19 Nifedipine Xl 30 Mg Tab PO Not Given QDAY VANESSA Trazodone HCl 50 mg 09/06/21 22:00 09/24/21 21:32 Trazodone 50 Mg Tab PO 50 mg QHS VANESSA Administration Ziprasidone 10 mg 09/10/21 11:00 Ziprasidone Mesylate 20 Mg Vial IM Q4H PRN Agitation Nutrition/Malnutrition Assess - Dietary Evaluation Nutrition/Malnutrition Findings: Nutrition Notes Start: 09/08/21 14:14 Freq: Status: Active Protocol: Document 09/12/21 14:58 GUY (Rec: 09/12/21 15:16 GUY [id number]) Nutrition Notes Need for Assessment generated from: LOS Initial or Follow up Assessment Current Diagnosis CKD(stage I-IV),Diabetes, Hypertension,Malnutrition, Hyperlipidemia Other Pertinent Diagnosis Major Depressive Disorder, Delusional Disorder, Allergic Rhinitis, Gout ... Current Diet Cardiac/Consistent Carbohydrates Diet (since B ), D Suppl (B 09/08). Labs/Tests 09/12: N/A, HbA1c 6.7%. Pertinent Medications 09/12: Nutritionally unremarkable. Height 5 ft 10 in Weight 122.47 kg [place] Body Weight (kg) 68.18 BMI 38.7 Weight change and time frame No body weight reported in 4 days. Weight Status Obese Subjective/Other Information RD consult for LOS assessment. Pt's PO intake of meals and ONS has been changing on a daily basis from 0% to 100% depending on Pt's mood and appetite, according to ADL notes. Pt lives with family. Percent of energy/protein needs met: Prescribed Cardiac/Consistent Carbohydrates Diet provides for energy/protein needs (1, 977 Kcal/86 g) during LOS. Burn Absent Trauma Absent GI Symptoms None Food Allergy No Skin Integrity/Comment Assessment WNL. Current % PO Other Minimum of two criteria No #1 Nutrition Diagnosis No nutrition diagnosis at this time Is patient on ventilator? No Is Patient Ambulatory and/or Out of Bed Yes REE-([place] or-ambulatory/OOB) [ 2398.435 [id number]] Kcal/Kg value to use for calculation 17 Approximate Energy Requirements Using 2081 kcal/Kg Calculation Used for Recommendations Kcal/kg Additional Notes Protein: 0.6-0.8 g/Kg AdjBW; 57-76 g/day. Fluids: 1 ml/Kcal, or as per MD. Nutrition Intervention Revisit per MD consult or patient Sign Off request: Additional Comments Continue monitoring food tolerance, %PO intake of meals , and BM.
[2021-09-25] MEDS: ESCITALOPRAM 10 MG TAB PO SCH (09:33)
[2021-09-25] MEDS: DIVALPROEX DR 250 MG TAB PO SCH ×2 (09:33→21:23)
[2021-09-25] MEDS: busPIRone 5 MG TAB PO SCH (09:33)
[2021-09-25] MEDS: CETIRIZINE 10 MG TAB PO SCH (09:33)
[2021-09-25] MEDS: allopurinoL 100 MG TAB PO SCH (09:33)
[2021-09-25] MEDS: ARIPiprazole 5 MG TAB PO SCH (09:33)
[2021-09-25] MEDS: NIFEdipine XL 30 MG TAB PO SCH (09:33)
[2021-09-25] MEDS: metFORMIN 500 MG TAB PO SCH ×2 (09:33→17:04)
--- NOTE | 2021-09-25 11:25 | Progress Note ---
Subjective Date of service: 09/25/21 Principal diagnosis: Major Depressive Disorder Subjective Comment: The patient was seen today. She is calm and cooperative. Not much has changed in the last few days. The patent says she's been sleeping well with a good appetite. She denies SI/HI or hallucinations. She says "I'll be a lot better when I get out of here." She is awaiting placement. 09/24 The patient was seen today. She says she is ready to go. I informed her that we're trying to find her a safe place to discharge so she will be able to maintain her mental health. The patient denies SI/HI or hallucinations of any kind. 09/23 The patient was seen today. She says she's feels better. She denies SI/HI or hallucinations of any kind. The patient will need placement to ensure a safe discharge. 09/22 The patient was seen today. She is sitting with another patient. She appears withdrawn. She states she is a little sad, but better. She denies SI/HI or hallucinations of any kind. 09/21 The patient was seen today. She is sitting in the day room. She presents as better than why I evaluated her last week. She verbalizes feeling depressed, but denies SI/HI or hallucinations of any kind. The patient is awaiting placement. 09/20/21: The patient was seen today. The patient states she is doing fine but states she is tired of waiting. She reports sleep and appetite as good. She denies any current suicidal/homicidal ideation and denies hallucinations. The patient is clear from psych point of view. 09/18/21: The patient was seen today. The patient states she is doing okay. She reports sleep and appetite as good. She denies any current suicidal/homicidal ideation and denies hallucinations. 09/17/21: The patient was seen today. She is pleasant. The patient states she is doing well. She reports sleep and appetite as good. She denies any current suicidal/homicidal ideation and denies hallucinations. 09/16/21: The patient was seen today.The patient states she is doing well. She is lucid. She denies any current suicidal/homicidal ideation and denies hallucinations. 09/15/21: The patient was seen today.The patient states she is feeling better. " I did not kill my family right? then I'm good." She denies any current suicidal/homicidal ideation and denies hallucinations. 09/14/21: The patient was seen today. She presents with flat affect; the patient continues to endorse depression rates as 10/10. She reports suicidal ideation with no plan " I wish somebody can do it for me and get it over with." She endorses hallucinations "voices saying I killed my family." 09/13/21: The patient was seen today. She is sitting off to herself. She appears down. The patient says "I'm just here." She verbalizes feeling depressed and suicidal. She denies hallucinations. 09/12 The patient was seen today. She is in the dayroom with her head down. She easily arouses. She says "I'm just here." She verbalizes feeling depressed. I ask the patient why is she depressed, she replies "you know why." The patient says "I don't really want to live." She then says "I don't want to talk about it." 09/11 The patient was seen today. Staff and hospitalist with the patient. The patient's BP was initially low, but has normalized now. The patient was taken to the day room, she is shaking and asking to go back to bed. She is irritable and acting bizarre. I touch her and she shakes vigorously and tells me not to touch her. She says "I don't feel good." I ask the patient why she didn't feel good, she says "put me in my room. That chair is nasty." She refused to answer if she was having hallucinations or feeling suicidal. [facility] 09/10 The patient was seen today. She is lying in bed awake. Her thoughts are disorganized. The patient is acting bizarre. She is staring at the ceiling with her right arm stuck out. She says "my arm is still on the plane." She says "they are smoking on the plane." The patient says "my body is still on this plane. Get out of here." She says "get out of here." The patient then stops talking. 09/09 The patient was seen today. She is sleeping. She is irritable at me waking her up. She tells me to "shhhhhh" to silence me. She verbalizes being depressed. She says "I don't want to talk about it," when asking her was she suicidal. The nurse says the patient was given Geodon prn and it just started to take affect this morning. Nurse note states the patient was agitated, combative and hallucinating. 09/08 The patient was seen today. She is sitting in the dayroom. She is paranoid and delusional. She appears withdrawn. The patient says she is depressed. She then says "I killed my whole family, remember?" I tell the patient that none of that happened. She becomes upset, and says "just don't say nothing else." She refused to speak any further. 09/13 The patient was seen today. She is sitting off to herself. She appears down. The patient says "I'm just here." She verbalizes feeling depressed and suicidal. She denies hallucinations. 09/12 The patient was seen today. She is in the dayroom with her head down. She easily arouses. She says "I'm just here." She verbalizes feeling depressed. I ask the patient why is she depressed, she replies "you know why." The patient says "I don't really want to live." She then says "I don't want to talk about it." 09/11 The patient was seen today. Staff and hospitalist with the patient. The patient's BP was initially low, but has normalized now. The patient was taken to the day room, she is shaking and asking to go back to bed. She is irritable and acting bizarre. I touch her and she shakes vigorously and tells me not to touch her. She says "I don't feel good." I ask the patient why she didn't feel good, she says "put me in my room. That chair is nasty." She refused to answer if she was having hallucinations or feeling suicidal. She says "Shhhhhh, I want to go to my room." 09/10 The patient was seen today. She is lying in bed awake. Her thoughts are disorganized. The patient is acting bizarre. She is staring at the ceiling with her right arm stuck out. She says "my arm is still on the plane." She says "they are smoking on the plane." The patient says "my body is still on this plane. Get out of here." She says "get out of here." The patient then stops talking. 09/09 The patient was seen today. She is sleeping. She is irritable at me waking her up. [facility]. She verbalizes being depressed. She says "I don't want to talk about it," when asking her was she suicidal. The nurse says the patient was given Geodon prn and it just started to take affect this morning. Nurse note states the patient was agitated, combative and hallucinating. 09/08 The patient was seen today. She is sitting in the dayroom. She is paranoid and delusional. She appears withdrawn. The patient says she is depressed. She then says "I killed my whole family, remember?" I tell the patient that none of that happened. She becomes upset, and says "just don't say nothing else." She refused to speak any further. REVIEW OF SYSTEMS Constitutional: Negative for weight loss ENT: Negative for stridor Respiratory: Negative for cough or hemoptysis All other systems reviewed and are negative MENTAL STATUS EXAMINATION General Appearance and Behavior: Age appropriate, good hygiene, wearing appropriate clothes, good eye contact, calm, cooperative Cooperation: Participating/engaged, but Guarded Psychomotor Behavior: Psychomotor normal Mood: sad, but better Affect and affective range: congruent with stated mood Thought Process: Circumstantial Thought Content: None Speech: normal tone and pace Suicidal Ideation: Denies Homicidal Ideation: Denies Hallucinations: Denies Delusions: None elicited Impulse Control: Limited Insight and Judgment: Limited insight and judgment Memory: Limited Attention: attentive Orientation: Alert, oriented Assessment and Plan Delusional disorder Treatment Plan Patient admitted for inpatient psychiatric evaluation, medication adjustment and close monitoring The patient's behavior, mood, sleep and appetite will be closely monitored. Patient enrolled in individual and group therapeutic sessions and encouraged to attend. Patient provided with a safe and structured environment. Patient's physical health needs will be addressed by the Hospitalist. Hospitalist Consulted Labs including CBC, CMP, Lipid profile and Hemoglobin A1C levels ordered for baseline reference Social Assessment will be completed and the [employer] will work with patient and family to ensure a suitable and safe disposition Medication adjustment will be made as clinically indicated Continue meds Usual Wellness Gnosticist/Preservation: - Start Trazodone 50 mg po QHS & 50 mg po QHS PRN between 10 PM & 2 AM for insomnia - Start Melatonin 5 mg po QHS to promote circadian rhythm The patient agreed on the treatment plan, understood the risk, benefit, alternative treatment, potential consequence of no treatment, and gave informed consent. Estimated days: 7 Post hospital care: primary care provider, psychiatric provider Case staffed with Dr. Christopher Medications and Allergies Allergies Allergy/AdvReac Type Severity Reaction Status Date / Time No Known Allergies Allergy Unverified 09/05/21 22:34 Home Medications Medication Instructions Recorded Confirmed Last Taken Type AtorvaSTATin [Lipitor] 20 mg PO HS 09/06/21 09/06/21 Unknown History Cetirizine HCl 10 mg PO DAILY 09/06/21 09/06/21 Unknown History Losartan Potassium 100 mg PO DAILY 09/06/21 09/06/21 Unknown History allopurinoL [Zyloprim] 100 mg PO DAILY 09/06/21 09/06/21 Unknown History cloNIDine [Catapres] 0.1 mg PO BID 09/06/21 09/06/21 Unknown History ARIPiprazole 5 mg PO QDAY 30 Days #30 tablet 09/19/21 Unknown Rx Divalproex [Cipriano Dr] 250 mg PO BID 30 Days #60 tablet 09/19/21 Unknown Rx Escitalopram [Lexapro] 20 mg PO QDAY 30 Days #30 tablet 09/19/21 Unknown Rx NIFEdipine XL [Procardia Xl] 30 mg PO QDAY tablet 09/19/21 Unknown Rx busPIRone [Buspar] 5 mg PO DAILY 30 Days #30 09/19/21 Unknown Rx metFORMIN [Glucophage] 500 mg PO BIDDIAB tablet 09/19/21 Unknown Rx traZODone [Desyrel] 50 mg PO QHS 30 Days #30 tablet 09/19/21 Unknown Rx Active Meds: Active Medications Allopurinol (Allopurinol 100 Mg Tab) 100 mg PO DAILY [facility] Last Admin: 09/25/21 09:33 Dose: 100 mg Aripiprazole (Aripiprazole 5 Mg Tab) 5 mg PO QDAY [facility] Last Admin: 09/25/21 09:33 Dose: 5 mg Atorvastatin Calcium (Atorvastatin 20 Mg Tab) 20 mg PO HS [facility] Last Admin: 09/24/21 21:32 Dose: 20 mg Buspirone HCl (Buspirone 5 Mg Tab) 5 mg PO DAILY [facility] Last Admin: 09/25/21 09:33 Dose: 5 mg Cetirizine HCl (Cetirizine 10 Mg Tab) 10 mg PO DAILY [facility] Last Admin: 09/25/21 09:33 Dose: 10 mg Divalproex Sodium (Divalproex Dr 250 Mg Tab) 250 mg PO BID [facility] Last Admin: 09/25/21 09:33 Dose: 250 mg Escitalopram Oxalate (Escitalopram 10 Mg Tab) 20 mg PO QDAY [facility] Last Admin: 09/25/21 09:33 Dose: 20 mg Metformin HCl (Metformin 500 Mg Tab) 500 mg PO BIDDIAB [facility] Last Admin: 09/25/21 09:33 Dose: 500 mg Nifedipine (Nifedipine Xl 30 Mg Tab) 30 mg PO QDAY [facility] Last Admin: 09/25/21 09:33 Dose: 30 mg Trazodone HCl (Trazodone 50 Mg Tab) 50 mg PO QHS [facility] Last Admin: 09/24/21 21:32 Dose: 50 mg Ziprasidone (Ziprasidone Mesylate 20 Mg Vial) 10 mg IM Q4H PRN PRN Reason: Agitation Results - Results Labs/Vitals: Laboratory Last Values WBC 9.5 K/mm3 (4.5-11.0) 09/06/21 13:24 RBC 3.76 M/mm3 (3.65-5.03) 09/06/21 13:24 Hgb 11.6 gm/dl (10.1-14.3) 09/06/21 13:24 Hct 35.2 % (30.3-42.9) 09/06/21 13:24 MCV 94 fl (79-97) 09/06/21 13:24 MCH 31 pg (28-32) 09/06/21 13:24 MCHC 33 % (30-34) 09/06/21 13:24 RDW 14.1 % (13.2-15.2) 09/06/21 13:24 Plt Count 210 K/mm3 (140-440) 09/06/21 13:24 Lymph % (Auto) 19.3 % (13.4-35.0) 09/06/21 13:24 [place] % (Auto) 5.2 % (0.0-7.3) 09/06/21 13:24 Eos % (Auto) 1.7 % (0.0-4.3) 09/06/21 13:24 Baso % (Auto) 0.5 % (0.0-1.8) 09/06/21 13:24 Lymph # (Auto) 1.8 K/mm3 (1.2-5.4) 09/06/21 13:24 [place] # (Auto) 0.5 K/mm3 (0.0-0.8) 09/06/21 13:24 Eos # (Auto) 0.2 K/mm3 (0.0-0.4) 09/06/21 13:24 Baso # (Auto) 0.0 K/mm3 (0.0-0.1) 09/06/21 13:24 Seg Neutrophils % 73.3 % (40.0-70.0) H 09/06/21 13:24 Seg Neutrophils # 6.9 K/mm3 (1.8-7.7) 09/06/21 13:24 Sodium 133 mmol/L (137-145) L 09/06/21 13:24 Potassium 4.8 mmol/L (3.6-5.0) 09/06/21 13:24 Chloride 102.4 mmol/L (98-107) 09/06/21 13:24 Carbon Dioxide 20 mmol/L (22-30) L 09/06/21 13:24 Anion Gap 15 mmol/L 09/06/21 13:24 BUN 30 mg/dL (7-17) H 09/06/21 13:24 Creatinine 1.5 mg/dL (0.6-1.2) H 09/06/21 13:24 Estimated GFR 35 ml/min 09/06/21 13:24 BUN/Creatinine Ratio 20 % 09/06/21 13:24 Glucose 156 mg/dL (65-100) H 09/06/21 13:24 POC Glucose 123 mg/dL (70-105) H 09/25/21 07:32 Hemoglobin A1c 6.7 % (4-6) H 09/06/21 13:24 Calcium 9.3 mg/dL (8.4-10.2) 09/06/21 13:24 Total Bilirubin 0.60 mg/dL (0.1-1.2) 09/06/21 13:24 AST 21 units/L (5-40) 09/06/21 13:24 ALT 10 units/L (7-56) 09/06/21 13:24 Alkaline Phosphatase 49 units/L (35-129) 09/06/21 13:24 Total Protein 7.1 g/dL (6.3-8.2) 09/06/21 13:24 Albumin 2.5 g/dL (3.9-5) L 09/06/21 13:24 Albumin/Globulin Ratio 0.5 % 09/06/21 13:24 Triglycerides 118 mg/dL (2-149) 09/06/21 13:24 Cholesterol 178 mg/dL (50-199) 09/06/21 13:24 LDL Cholesterol Direct 105 mg/dL (50-130) 09/06/21 13:24 HDL Cholesterol 60 mg/dL (40-59) H 09/06/21 13:24 Cholesterol/HDL Ratio 2.96 % 09/06/21 13:24 TSH 0.454 mlU/mL (0.270-4.200) 09/06/21 13:24 Valproic Acid 38.1 ug/mL (50-100) L 09/21/21 09:45 Last Vital Signs Temp 98.7 F 09/25/21 09:06 Pulse 108 H 09/25/21 09:06 Resp 18 09/25/21 09:06 BP 127/64 09/25/21 09:06 Pulse Ox 95 09/25/21 09:06
[2021-09-25 14:34] LABS: Calcium 9.9 mg/dL (8.4-10.2)
[2021-09-25] MEDS: traZODone 50 MG TAB PO SCH (21:23)
[2021-09-26] MEDS ORDERED: SODIUM POLYSTYRENE 15 GM/60 ML ORAL LIQD PO NR (08:29)
[2021-09-26 08:39] VITALS: BP 115/72
[2021-09-26] MEDS: DIVALPROEX DR 250 MG TAB PO SCH (09:38)
[2021-09-26] MEDS: busPIRone 5 MG TAB PO SCH (09:38)
[2021-09-26] MEDS: CETIRIZINE 10 MG TAB PO SCH (09:38)
[2021-09-26] MEDS: ARIPiprazole 5 MG TAB PO SCH (09:38)
[2021-09-26] MEDS: allopurinoL 100 MG TAB PO SCH (09:38)
[2021-09-26] MEDS: NIFEdipine XL 30 MG TAB PO SCH (09:38)
[2021-09-26] MEDS: ESCITALOPRAM 10 MG TAB PO SCH (09:38)
[2021-09-26] MEDS: metFORMIN 500 MG TAB PO SCH ×2 (09:38→16:40)
--- NOTE | 2021-09-26 10:50 | Progress Note ---
Subjective Date of service: 09/26/21 Principal diagnosis: Major Depressive Disorder Subjective Comment: The patient was seen today. She is calm, and cooperative. She denies SI/HI or hallucinations. She says she's ready to go home to see her grandchildren. SW unable to reach family. 09/25 The patient was seen today. She is calm and cooperative. Not much has changed in the last few days. The patent says she's been sleeping well with a good appetite. She denies SI/HI or hallucinations. She says "I'll be a lot better when I get out of here." She is awaiting placement. 09/24 The patient was seen today. She says she is ready to go. I informed her that we're trying to find her a safe place to discharge so she will be able to maintain her mental health. The patient denies SI/HI or hallucinations of any kind. 09/23 The patient was seen today. She says she's feels better. She denies SI/HI or hallucinations of any kind. The patient will need placement to ensure a safe discharge. 09/22 The patient was seen today. She is sitting with another patient. She appears withdrawn. She states she is a little sad, but better. She denies SI/HI or hallucinations of any kind. 09/21 The patient was seen today. She is sitting in the day room. She presents as better than why I evaluated her last week. She verbalizes feeling depressed, but denies SI/HI or hallucinations of any kind. The patient is awaiting placement. 09/20/21: The patient was seen today. The patient states she is doing fine but states she is tired of waiting. She reports sleep and appetite as good. She denies any current suicidal/homicidal ideation and denies hallucinations. The patient is clear from psych point of view. 09/18/21: The patient was seen today. The patient states she is doing okay. She reports sleep and appetite as good. She denies any current suicidal/homicidal ideation and denies hallucinations. 09/17/21: The patient was seen today. She is pleasant. The patient states she is doing well. She reports sleep and appetite as good. She denies any current suicidal/homicidal ideation and denies hallucinations. 09/16/21: The patient was seen today.The patient states she is doing well. She is lucid. She denies any current suicidal/homicidal ideation and denies hallucin ations. 09/15/21: The patient was seen today.The patient states she is feeling better. " I did not kill my family right? then I'm good." She denies any current suicidal/homicidal ideation and denies hallucinations. 09/14/21: The patient was seen today. She presents with flat affect; the patient continues to endorse depression rates as 10/10. She reports suicidal ideation with no plan " I wish somebody can do it for me and get it over with." She endorses hallucinations "voices saying I killed my family." 09/13/21: The patient was seen today. She is sitting off to herself. She appears down. The patient says "I'm just here." She verbalizes feeling depressed and suicidal. She denies hallucinations. 09/12 The patient was seen today. She is in the dayroom with her head down. She easily arouses. She says "I'm just here." She verbalizes feeling depressed. I ask the patient why is she depressed, she replies "you know why." The patient says "I don't really want to live." She then says "I don't want to talk about it." 09/11 The patient was seen today. Staff and hospitalist with the patient. The patient's BP was initially low, but has normalized now. The patient was taken to the day room, she is shaking and asking to go back to bed. She is irritable and acting bizarre. I touch her and she shakes vigorously and tells me not to touch her. She says "I don't feel good." I ask the patient why she didn't feel good, she says "put me in my room. That chair is nasty." She refused to answer if she was having hallucinations or feeling suicidal. [facility] 09/10 The patient was seen today. She is lying in bed awake. Her thoughts are disorganized. The patient is acting bizarre. She is staring at the ceiling with her right arm stuck out. She says "my arm is still on the plane." She says "they are smoking on the plane." The patient says "my body is still on this plane. Get out of here." She says "get out of here." The patient then stops talking. 09/09 The patient was seen today. She is sleeping. She is irritable at me waking her up. She tells me to "shhhhhh" to silence me. She verbalizes being depressed. She says "I don't want to talk about it," when asking her was she suicidal. The nurse says the patient was given Geodon prn and it just started to take affect this morning. Nurse note states the patient was agitated, combative and hallucinating. 09/08 The patient was seen today. She is sitting in the dayroom. She is paranoid and delusional. She appears withdrawn. The patient says she is depressed. She then says "I killed my whole family, remember?" I tell the patient that none of that happened. She becomes upset, and says "just don't say nothing else." She refused to speak any further. 09/13 The patient was seen today. She is sitting off to herself. She appears down. The patient says "I'm just here." She verbalizes feeling depressed and suicidal. She denies hallucinations. 09/12 The patient was seen today. She is in the dayroom with her head down. She easily arouses. She says "I'm just here." She verbalizes feeling depressed. I ask the patient why is she depressed, she replies "you know why." The patient says "I don't really want to live." She then says "I don't want to talk about it." 09/11 The patient was seen today. Staff and hospitalist with the patient. The patient's BP was initially low, but has normalized now. The patient was taken to the day room, she is shaking and asking to go back to bed. She is irritable and acting bizarre. I touch her and she shakes vigorously and tells me not to touch her. She says "I don't feel good." I ask the patient why she didn't feel good, she says "put me in my room. That chair is nasty." She refused to answer if she was having hallucinations or feeling suicidal. She says "Shhhhhh, I want to go to my room." 09/10 The patient was seen today. She is lying in bed awake. Her thoughts are disorganized. The patient is acting bizarre. She is staring at the ceiling with her right arm stuck out. She says "my arm is still on the plane." She says "they are smoking on the plane." The patient says "my body is still on this plane. Get out of here." She says "get out of here." The patient then stops talking. 09/09 The patient was seen today. She is sleeping. She is irritable at me waking her up. She tells me to "shhhhhh" to silence me. She verbalizes being depressed. She says "I don't want to talk about it," when asking her was she suicidal. The nurse says the patient was given Geodon prn and it just started to take affect this morning. Nurse note states the patient was agitated, combative and hallucinating. 09/08 The patient was seen today. She is sitting in the dayroom. She is paranoid and delusional. She appears withdrawn. The patient says she is depressed. She then says "I killed my whole family, remember?" I tell the patient that none of that happened. She becomes upset, and says "just don't say nothing else." She refused to speak any further. REVIEW OF SYSTEMS Constitutional: Negative for weight loss ENT: Negative for stridor Respiratory: Negative for cough or hemoptysis All other systems reviewed and are negative MENTAL STATUS EXAMINATION General Appearance and Behavior: Age appropriate, good hygiene, wearing appropriate clothes, good eye contact, calm, cooperative Cooperation: Participating/engaged, but Guarded Psychomotor Behavior: Psychomotor normal Mood: sad, but better Affect and affective range: congruent with stated mood Thought Process: Circumstantial Thought Content: None Speech: normal tone and pace Suicidal Ideation: Denies Homicidal Ideation: Denies Hallucinations: Denies Delusions: None elicited Impulse Control: Limited Insight and Judgment: Limited insight and judgment Memory: Limited Attention: attentive Orientation: Alert, oriented Assessment and Plan Delusional disorder Treatment Plan Patient admitted for inpatient psychiatric evaluation, medication adjustment and close monitoring The patient's behavior, mood, sleep and appetite will be closely monitored. Patient enrolled in individual and group therapeutic sessions and encouraged to attend. Patient provided with a safe and structured environment. Patient's physical health needs will be addressed by the Hospitalist. Hospitalist Consulted Labs including CBC, CMP, Lipid profile and Hemoglobin A1C levels ordered for baseline reference Social Assessment will be completed and the Health Information Systems Technician will work with patient and family to ensure a suitable and safe disposition Medication adjustment will be made as clinically indicated Continue meds Usual Wellness Taoist/Preservation: - Start Trazodone 50 mg po QHS & 50 mg po QHS PRN between 10 PM & 2 AM for insomnia - Start Melatonin 5 mg po QHS to promote circadian rhythm The patient agreed on the treatment plan, understood the risk, benefit, alternative treatment, potential consequence of no treatment, and gave informed consent. Estimated days: 7 Post hospital care: primary care provider, psychiatric provider Case staffed with Dr. Christopher Medications and Allergies Allergies Allergy/AdvReac Type Severity Reaction Status Date / Time No Known Allergies Allergy Unverified 09/05/21 22:34 Home Medications Medication Instructions Recorded Confirmed Last Taken Type AtorvaSTATin [Lipitor] 20 mg PO HS 09/06/21 09/06/21 Unknown History Cetirizine HCl 10 mg PO DAILY 09/06/21 09/06/21 Unknown History Losartan Potassium 100 mg PO DAILY 09/06/21 09/06/21 Unknown History allopurinoL [Zyloprim] 100 mg PO DAILY 09/06/21 09/06/21 Unknown History cloNIDine [Catapres] 0.1 mg PO BID 09/06/21 09/06/21 Unknown History ARIPiprazole 5 mg PO QDAY 30 Days #30 tablet 09/19/21 Unknown Rx Divalproex [Cipriano Harrison] 250 mg PO BID 30 Days #60 tablet 09/19/21 Unknown Rx Escitalopram [Lexapro] 20 mg PO QDAY 30 Days #30 tablet 09/19/21 Unknown Rx NIFEdipine XL [Procardia Xl] 30 mg PO QDAY tablet 09/19/21 Unknown Rx busPIRone [Buspar] 5 mg PO DAILY 30 Days #30 09/19/21 Unknown Rx metFORMIN [Glucophage] 500 mg PO BIDDIAB tablet 09/19/21 Unknown Rx traZODone [Desyrel] 50 mg PO QHS 30 Days #30 tablet 09/19/21 Unknown Rx Active Meds: Active Medications Allopurinol (Allopurinol 100 Mg Tab) 100 mg PO DAILY [facility] Last Admin: 09/26/21 09:38 Dose: 100 mg Aripiprazole (Aripiprazole 5 Mg Tab) 5 mg PO QDAY [facility] Last Admin: 09/26/21 09:38 Dose: 5 mg Atorvastatin Calcium (Atorvastatin 20 Mg Tab) 20 mg PO HS [facility] Last Admin: 09/25/21 21:24 Dose: 20 mg Buspirone HCl (Buspirone 5 Mg Tab) 5 mg PO DAILY [facility] Last Admin: 09/26/21 09:38 Dose: 5 mg Cetirizine HCl (Cetirizine 10 Mg Tab) 10 mg PO DAILY [facility] Last Admin: 09/26/21 09:38 Dose: 10 mg Divalproex Sodium (Divalproex Dr 250 Mg Tab) 250 mg PO BID [facility] Last Admin: 09/26/21 09:38 Dose: 250 mg Escitalopram Oxalate (Escitalopram 10 Mg Tab) 20 mg PO QDAY [facility] Last Admin: 09/26/21 09:38 Dose: 20 mg Metformin HCl (Metformin 500 Mg Tab) 500 mg PO BIDDIAB [facility] Last Admin: 09/26/21 09:38 Dose: 500 mg Nifedipine (Nifedipine Xl 30 Mg Tab) 30 mg PO QDAY [facility] Last Admin: 09/26/21 09:38 Dose: 30 mg Trazodone HCl (Trazodone 50 Mg Tab) 50 mg PO QHS [facility] Last Admin: 09/25/21 21:23 Dose: 50 mg Ziprasidone (Ziprasidone Mesylate 20 Mg Vial) 10 mg IM Q4H PRN PRN Reason: Agitation Results - Results Labs/Vitals: Laboratory Last Values WBC 9.5 K/mm3 (4.5-11.0) 09/06/21 13:24 RBC 3.76 M/mm3 (3.65-5.03) 09/06/21 13:24 Hgb 11.6 gm/dl (10.1-14.3) 09/06/21 13:24 Hct 35.2 % (30.3-42.9) 09/06/21 13:24 MCV 94 fl (79-97) 09/06/21 13:24 MCH 31 pg (28-32) 09/06/21 13:24 MCHC 33 % (30-34) 09/06/21 13:24 RDW 14.1 % (13.2-15.2) 09/06/21 13:24 Plt Count 210 K/mm3 (140-440) 09/06/21 13:24 Lymph % (Auto) 19.3 % (13.4-35.0) 09/06/21 13:24 [place] % (Auto) 5.2 % (0.0-7.3) 09/06/21 13:24 Eos % (Auto) 1.7 % (0.0-4.3) 09/06/21 13:24 Baso % (Auto) 0.5 % (0.0-1.8) 09/06/21 13:24 Lymph # (Auto) 1.8 K/mm3 (1.2-5.4) 09/06/21 13:24 [place] # (Auto) 0.5 K/mm3 (0.0-0.8) 09/06/21 13:24 Eos # (Auto) 0.2 K/mm3 (0.0-0.4) 09/06/21 13:24 Baso # (Auto) 0.0 K/mm3 (0.0-0.1) 09/06/21 13:24 Seg Neutrophils % 73.3 % (40.0-70.0) H 09/06/21 13:24 Seg Neutrophils # 6.9 K/mm3 (1.8-7.7) 09/06/21 13:24 Sodium 138 mmol/L (137-145) 09/25/21 13:42 Potassium 5.2 mmol/L (3.6-5.0) H 09/25/21 13:42 Chloride 100.6 mmol/L (98-107) 09/25/21 13:42 Carbon Dioxide 24 mmol/L (22-30) 09/25/21 13:42 Anion Gap 19 mmol/L 09/25/21 13:42 BUN 32 mg/dL (7-17) H 09/25/21 13:42 Creatinine 1.3 mg/dL (0.6-1.2) H 09/25/21 13:42 Estimated GFR 41 ml/min 09/25/21 13:42 BUN/Creatinine Ratio 25 % 09/25/21 13:42 Glucose 118 mg/dL (65-100) H 09/25/21 13:42 POC Glucose 97 mg/dL (70-105) 09/26/21 06:27 Hemoglobin A1c 6.7 % (4-6) H 09/06/21 13:24 Calcium 9.9 mg/dL (8.4-10.2) 09/25/21 13:42 Total Bilirubin 0.60 mg/dL (0.1-1.2) 09/06/21 13:24 AST 21 units/L (5-40) 09/06/21 13:24 ALT 10 units/L (7-56) 09/06/21 13:24 Alkaline Phosphatase 49 units/L (35-129) 09/06/21 13:24 Total Protein 7.1 g/dL (6.3-8.2) 09/06/21 13:24 Albumin 2.5 g/dL (3.9-5) L 09/06/21 13:24 Albumin/Globulin Ratio 0.5 % 09/06/21 13:24 Triglycerides 118 mg/dL (2-149) 09/06/21 13:24 Cholesterol 178 mg/dL (50-199) 09/06/21 13:24 LDL Cholesterol Direct 105 mg/dL (50-130) 09/06/21 13:24 HDL Cholesterol 60 mg/dL (40-59) H 09/06/21 13:24 Cholesterol/HDL Ratio 2.96 % 09/06/21 13:24 TSH 0.454 mlU/mL (0.270-4.200) 09/06/21 13:24 Valproic Acid 38.1 ug/mL (50-100) L 09/21/21 09:45 Last Vital Signs Temp 98.2 F 09/26/21 08:23 Pulse 90 09/26/21 08:23 Resp 16 09/26/21 08:23 BP 115/72 09/26/21 08:23 Pulse Ox 96 09/26/21 08:23
--- NOTE | 2021-09-26 11:18 | Progress Note ---
Assessment and Plan Assessment and plan: 65 YO Female with Vascular Dementia with Behavioral Disturbance, Cerebral Atherosclerosis, HTN, HLD, Gout, Seasonal Allergies, Acute Psychosis admitted to [facility] for psychiatric stabilization. Consult placed with Dr. Pulido for medical management. Patient seen and evaluated in the recreation room. Patient resting comfortably. No reported nursing events. Patient denies pain. Patient is currently at baseline level of cognition and function. 09/25: Continue supportive care, BP is stable, will continue to follow if patient remains inhouse. Will monitor renal function. Also noted with Mild Hyponatremia. 09/26: No new complaints, Ok with removal of suture. Continue supportive care. Wi ll give kayxalate for Hyperkalemia, recheck in AM. Creatnine is improving (1) Vascular dementia with behavioral disturbance Current Visit: Yes Status: Acute Plan to address problem: Verbal prompting, verbal redirection, benzodiazepine therapy as clinically indicated. (2) Cerebral atherosclerosis Current Visit: Yes Status: Acute Plan to address problem: Risk factor reduction, antiplatelet therapy as clinically indicated. (3) Obesity hypoventilation syndrome Current Visit: Yes Status: Acute Plan to address problem: Balanced diet, increase physical activity discharge, outpatient pulmonary follow-up for sleep study. (4) Acute psychosis Current Visit: Yes Status: Acute Plan to address problem: Supportive care, continue medical management (5) Hypertension Current Visit: Yes Status: Acute Qualifiers: Hypertension type: primary hypertension Qualified Code(s): I10 - Essential (primary) hypertension Plan to address problem: Monitor blood pressure every shift, continue medical management (6) Hyperlipidemia Current Visit: Yes Status: Acute Qualifiers: Hyperlipidemia type: mixed hyperlipidemia Qualified Code(s): E78.2 - Mixed hyperlipidemia Plan to address problem: Low-cholesterol diet, supportive care, (7) CKD (8) Seasonal allergies Current Visit: Yes Status: Acute Plan to address problem: Continue oral antihistamine therapy as clinically indicated. (9) Advance care planning Current Visit: Yes Status: Acute Plan to address problem: Disease education conducted, care plan discussed, diagnoses discussed, prognosis discussed, patient is full code. Patient acknowledges understanding and agreement with care plan, +30 minutes. History Interval history: Patient seen and examined, No new complaints. Discussed with Nursing staff, planning to remove suture from arm Hospitalist Physical - Physical exam Narrative exam: General appearance: Present: no acute distress, well-nourished, obese, sitting up eating - EENT Eyes: Present: PERRL ENT: hearing intact - Neck Neck: Present: supple - Respiratory Respiratory effort: normal Respiratory: bilateral: CTA - Cardiovascular Rhythm: regular - Extremities Extremities: no ischemia Peripheral Pulses: within normal limits - Abdominal General gastrointestinal: soft, non-tender, non-distended - Integumentary Integumentary: Present: clear, dry - Psychiatric Psychiatric: cooperative - Neurologic Neurologic: CNII-XII intact - Constitutional Vitals: Temp Pulse Resp BP Pulse Ox 98.2 F 90 16 115/72 96 09/26/21 08:23 09/26/21 08:23 09/26/21 08:23 09/26/21 08:23 09/26/21 08:23 General appearance: Present: no acute distress, well-nourished Results - Labs CBC & Chem 7: 09/06/21 13:24 09/25/21 13:42 Labs: Laboratory Last Values WBC 9.5 K/mm3 (4.5-11.0) 09/06/21 13:24 RBC 3.76 M/mm3 (3.65-5.03) 09/06/21 13:24 Hgb 11.6 gm/dl (10.1-14.3) 09/06/21 13:24 Hct 35.2 % (30.3-42.9) 09/06/21 13:24 MCV 94 fl (79-97) 09/06/21 13:24 MCH 31 pg (28-32) 09/06/21 13:24 MCHC 33 % (30-34) 09/06/21 13:24 RDW 14.1 % (13.2-15.2) 09/06/21 13:24 Plt Count 210 K/mm3 (140-440) 09/06/21 13:24 Lymph % (Auto) 19.3 % (13.4-35.0) 09/06/21 13:24 [place] % (Auto) 5.2 % (0.0-7.3) 09/06/21 13:24 Eos % (Auto) 1.7 % (0.0-4.3) 09/06/21 13:24 Baso % (Auto) 0.5 % (0.0-1.8) 09/06/21 13:24 Lymph # (Auto) 1.8 K/mm3 (1.2-5.4) 09/06/21 13:24 [place] # (Auto) 0.5 K/mm3 (0.0-0.8) 09/06/21 13:24 Eos # (Auto) 0.2 K/mm3 (0.0-0.4) 09/06/21 13:24 Baso # (Auto) 0.0 K/mm3 (0.0-0.1) 09/06/21 13:24 Seg Neutrophils % 73.3 % (40.0-70.0) H 09/06/21 13:24 Seg Neutrophils # 6.9 K/mm3 (1.8-7.7) 09/06/21 13:24 Sodium 138 mmol/L (137-145) 09/25/21 13:42 Potassium 5.2 mmol/L (3.6-5.0) H 09/25/21 13:42 Chloride 100.6 mmol/L (98-107) 09/25/21 13:42 Carbon Dioxide 24 mmol/L (22-30) 09/25/21 13:42 Anion Gap 19 mmol/L 09/25/21 13:42 BUN 32 mg/dL (7-17) H 09/25/21 13:42 Creatinine 1.3 mg/dL (0.6-1.2) H 09/25/21 13:42 Estimated GFR 41 ml/min 09/25/21 13:42 BUN/Creatinine Ratio 25 % 09/25/21 13:42 Glucose 118 mg/dL (65-100) H 09/25/21 13:42 POC Glucose 97 mg/dL (70-105) 09/26/21 06:27 Hemoglobin A1c 6.7 % (4-6) H 09/06/21 13:24 Calcium 9.9 mg/dL (8.4-10.2) 09/25/21 13:42 Total Bilirubin 0.60 mg/dL (0.1-1.2) 09/06/21 13:24 AST 21 units/L (5-40) 09/06/21 13:24 ALT 10 units/L (7-56) 09/06/21 13:24 Alkaline Phosphatase 49 units/L (35-129) 09/06/21 13:24 Total Protein 7.1 g/dL (6.3-8.2) 09/06/21 13:24 Albumin 2.5 g/dL (3.9-5) L 09/06/21 13:24 Albumin/Globulin Ratio 0.5 % 09/06/21 13:24 Triglycerides 118 mg/dL (2-149) 09/06/21 13:24 Cholesterol 178 mg/dL (50-199) 09/06/21 13:24 LDL Cholesterol Direct 105 mg/dL (50-130) 09/06/21 13:24 HDL Cholesterol 60 mg/dL (40-59) H 09/06/21 13:24 Cholesterol/HDL Ratio 2.96 % 09/06/21 13:24 TSH 0.454 mlU/mL (0.270-4.200) 09/06/21 13:24 Valproic Acid 38.1 ug/mL (50-100) L 09/21/21 09:45 [place]/IV: Voiding Method Toilet Active Medications - Current Medications Current Medications: Generic Name Dose Route Start Last Admin Trade Name Freq PRN Reason Stop Dose Admin Allopurinol 100 mg 09/06/21 10:00 09/26/21 09:38 Allopurinol 100 Mg Tab PO 100 mg DAILY VANESSA Administration Aripiprazole 5 mg 09/12/21 11:00 09/26/21 09:38 Aripiprazole 5 Mg Tab PO 5 mg QDAY VANESSA Administration Atorvastatin Calcium 20 mg 09/06/21 22:00 09/25/21 21:24 Atorvastatin 20 Mg Tab PO 20 mg HS VANESSA Administration Buspirone HCl 5 mg 09/06/21 10:00 09/26/21 09:38 Buspirone 5 Mg Tab PO 5 mg DAILY VANESSA Administration Cetirizine HCl 10 mg 09/06/21 10:00 09/26/21 09:38 Cetirizine 10 Mg Tab PO 10 mg DAILY VANESSA Administration Divalproex Sodium 250 mg 09/13/21 10:00 09/26/21 09:[address] 250 Mg Tab PO 250 mg BID VANESSA Administration Escitalopram Oxalate 20 mg 09/07/21 10:00 09/26/21 09:38 Escitalopram 10 Mg Tab PO 20 mg QDAY VANESSA Administration Metformin HCl 500 mg 09/07/21 10:00 09/26/21 09:38 Metformin 500 Mg Tab PO 500 mg BIDDIAB VANESSA Administration Nifedipine 30 mg 09/09/21 10:00 09/26/21 09:38 Nifedipine Xl 30 Mg Tab PO 30 mg QDAY VANESSA Administration Trazodone HCl 50 mg 09/06/21 22:00 09/25/21 21:23 Trazodone 50 Mg Tab PO 50 mg QHS VANESSA Administration Ziprasidone 10 mg 09/10/21 11:00 Ziprasidone Mesylate 20 Mg Vial IM Q4H PRN Agitation Nutrition/Malnutrition Assess - Dietary Evaluation Nutrition/Malnutrition Findings: Nutrition Notes Start: 09/08/21 14:14 Freq: Status: Active Protocol: Document 09/12/21 14:58 GUY (Rec: 09/12/21 15:16 GUY [id number]) Nutrition Notes Need for Assessment generated from: LOS Initial or Follow up Assessment Current Diagnosis CKD(stage I-IV),Diabetes, Hypertension,Malnutrition, Hyperlipidemia Other Pertinent Diagnosis Major Depressive Disorder, Delusional Disorder, Allergic Rhinitis, Gout ... Current Diet Cardiac/Consistent Carbohydrates Diet (since B ), D Suppl (09/08). Labs/Tests 09/12: N/A, HbA1c 6.7%. Pertinent Medications 09/12: Nutritionally unremarkable. Height 5 ft 10 in Weight 122.47 kg [place] Body Weight (kg) 68.18 BMI 38.7 Weight change and time frame No body weight reported in 4 days. Weight Status Obese Subjective/Other Information RD consult for LOS assessment. Pt's PO intake of meals and ONS has been changing on a daily basis from 0% to 100% depending on Pt's mood and appetite, according to ADL notes. Pt lives with family. Percent of energy/protein needs met: Prescribed Cardiac/Consistent Carbohydrates Diet provides for energy/protein needs (1, 977 Kcal/86 g) during LOS. Burn Absent Trauma Absent GI Symptoms None Food Allergy No Skin Integrity/Comment Assessment WNL. Current % PO Other Minimum of two criteria No #1 Nutrition Diagnosis No nutrition diagnosis at this time Is patient on ventilator? No Is Patient Ambulatory and/or Out of Bed Yes REE-([facility]-ambulatory/OOB) [ [id number] [id number]] Kcal/Kg value to use for calculation 17 Approximate Energy Requirements Using 2 kcal/Kg Calculation Used for Recommendations Kcal/kg Additional Notes Protein: 0.6-0.8 g/Kg AdjBW; 57-76 g/day. Fluids: 1 ml/Kcal, or as per MD. Nutrition Intervention Revisit per MD consult or patient Sign Off request: Additional Comments Continue monitoring food tolerance, %PO intake of meals , and BM.
== END 2021-09-26 17:30 | disposition home or self-care (01) | DRG 885 ==
LOC: UNDOADMIN 16:58 → 3A 16:58 → 5A 23:47
PROVIDERS: ADMIT Psychiatry & Neurology Psychiatry; ATTEND Psychiatry & Neurology Psychiatry
DX: F22 Delusional disorders (principal); F32.9 Major depressive disorder, single episode, unspecified; M10.9 Gout, unspecified; E66.01 Morbid (severe) obesity due to excess calories; Z68.38 Body mass index [BMI] 38.0-38.9, adult; J30.9 Allergic rhinitis, unspecified; N18.30 Chronic kidney disease, stage 3 unspecified; E43 Unspecified severe protein-calorie malnutrition; I12.9 Hypertensive chronic kidney disease with stage 1 through stage 4 chronic kidney disease, or unspecified chronic kidney disease; F01.51 Vascular dementia, unspecified severity, with behavioral disturbance; I67.2 Cerebral atherosclerosis; E78.2 Mixed hyperlipidemia; Z82.49 Family history of ischemic heart disease and other diseases of the circulatory system
CPT/HCPCS: 36415; 80048; 80053; 80061; 80164; 82962; 83036; 84443; 85025; G0378; J3486